=== PATIENT | female | born 1995 | race Caucasian/White ===

== ENCOUNTER 2017-09-15 12:41 | Emergency (ER) | payer OTHER ==
--- NOTE | 2017-09-15 13:54 | RAD REPORT ---
EXAM DESCRIPTION: RAD - Foot Left 3 View - 09/15/2017 1:40 pm CLINICAL HISTORY: Fall, foot pain COMPARISON: None. FINDINGS: Transverse fracture is present at the base of the fifth metatarsal. There is a small free fracture fragment present as well. Approximately 6 mm of distraction is seen between the main body of the metatarsal and the base fracture fragment. No other fracture changes are seen. No dislocation or periosteal reaction. No pathologic bone process. No air or foreign body in the soft tissues. IMPRESSION: Comminuted fracture of the base of the fifth metatarsal. Approximately 6 mm of distracti on is seen across the fracture plane.
--- NOTE | 2017-09-15 14:09 | EDPHYS ---
Physician Documentation [facility] Name: Aida Rodriguez Age: 22 yrs Sex: Female : 1995 Arrival Date: 09/15/2017 Time: 12:44 Bed 11 Private MD: Gray Martinez H ED Physician Maurice Schroeder HPI: 09/15 14:00 This 22 yrs old Female presents to ER via Ambulatory with complaints of Foot pm1 Injury. 14:00 The patient presents with pain, swelling. The complaints affect the lateral aspect of pm1 left foot. Context: The problem was sustained at home, resulted from a mis-step, on a curb, twisting of the extremity, the patient can partially bear weight, the patient is able to ambulate, Problem is a result from a previous injury: No. Onset: The symptoms/episode began/occurred 1 week(s) ago. Modifying factors: The symptoms are alleviated by nothing. the symptoms are aggravated by weight bearing. Associated signs and symptoms: Pertinent positives: swelling, Pertinent negatives numbness, tingling. Treatment prior to arrival includes: over the counter medications. Severity of symptoms: in the emergency department the symptoms have improved. The patient has not experienced similar symptoms in the past. 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 - Social history:: Smoking status: Patient uses tobacco products, denies chronic smoking, but will smoke occasionally. ROS: 14:00 Constitutional: Negative for fever, chills, and weight loss, Cardiovascular: Negative pm1 for chest pain, palpitations, and edema, Respiratory: Negative for shortness of breath, cough, wheezing, and pleuritic chest pain, Abdomen/GI: Negative for abdominal pain, nausea, vomiting, diarrhea, and constipation, Back: Negative for injury and pain. 14:00 Skin: Negative for injury, rash, and discoloration, Neuro: Negative for headache, weakness, numbness, tingling, and seizure. 14:00 MS/extremity: Positive for injury or acute deformity, pain, of the lateral aspect of left foot. Exam: 14:00 Constitutional: This is a well developed, well nourished patient who is awake, alert, pm1 and in no acute distress. Head/Face: Normocephalic, atraumatic. Neck: Trachea midline, no thyromegaly or masses palpated, and no cervical lymphadenopathy. Supple, full range of motion without nuchal rigidity, or vertebral point tenderness. No Meningismus. Chest/axilla: Normal chest wall appearance and motion. Nontender with no deformity. No lesions are appreciated. Cardiovascular: Regular rate and rhythm with a normal S1 and S2. No gallops, murmurs, or rubs. Normal PMI, no JVD. No pulse deficits. Respiratory: Lungs have equal breath sounds bilaterally, clear to auscultation and percussion. No rales, rhonchi or wheezes noted. No increased work of breathing, no retractions or nasal flaring. Back: No spinal tenderness. No costovertebral tenderness. Full range of motion. Skin: Warm, dry with normal turgor. Normal color with no rashes, no lesions, and no evidence of cellulitis. 14:00 Musculoskeletal/extremity: Extremities: grossly normal except: noted in the lateral aspect of left foot: swelling, tenderness. Vital Signs: 13:01 BP 118 / 71; Pulse 83; Resp 16; Temp 98.2; Pulse Ox 100% on R/A; Weight 70.31 kg; iw Height 5 ft. 4 in. (162.56 cm); Pain 10/10; 13:01 Body Mass Index 26.61 (70.31 kg, 162.56 cm) iw MDM: 13:06 Patient medically screened. pm1 14:02 Data reviewed: vital signs. Data interpreted: Pulse oximetry: on room air is 100 %. pm1 Interpretation: normal. Counseling: I had a detailed discussion with the patient and/or guardian regarding: the historical points, exam findings, and any diagnostic results supporting the discharge/admit diagnosis, radiology results, the need for outpatient follow up, to return to the emergency department if symptoms worsen or persist or if there are any questions or concerns that arise at home. 09/15 13:03 Order name: Foot Left 3 View XRAY; Complete Time: 13:57 iw 09/15 14:02 Order name: Post-op Orthopedic Shoe pm1 09/15 14:02 Order name: Carmelita pm1 Administered Medications: No medications were administered Disposition: 09/16 06:56 Co-signature as Attending Physician, Maurice Schroeder MD I agree with the assessment and [facility] plan of care. Disposition: 09/15/17 14:08 Discharged to Home. Impression: Displaced fracture of fifth metatarsal bone, left foot. - Condition is Stable. - Discharge Instructions: Avulsion Fracture of the Foot. - Prescriptions for Tylenol- Codeine #3 300-30 mg Oral Tablet - take 2 tablets by ORAL route every 6 hours As needed; 20 tablet. - Medication Reconciliation Form, Thank You Letter, Prescription Opioid Use form. - Follow up: Emergency Department; When: As needed; Reason: Worsening of condition. Follow up: Kevin Menchaca MD; When: 2 - 3 days; Reason: Recheck today's complaints, Continuance of care, Re-evaluation by your physician. - Problem is new. - Symptoms have improved. Signatures: Dispatcher [employer] Maurice Thakur MD MD cha Townsend, Paige, RN RN Nieves Griffin RN RN iw Marinas, Patrick, JUANJO EDUCATION INTERN pm1
--- NOTE | 2017-09-15 14:09 | ER ---
Nurse's Notes [facility] Name: Aida Rodriguez Age: 22 yrs Sex: Female : 1995 Arrival Date: 09/15/2017 Time: 12:44 Bed 11 Private MD: Gray Martinez H Diagnosis: Displaced fracture of fifth metatarsal bone, left foot Presentation: 09/15 12:58 Presenting complaint: Patient states: last Friday, injured left foot and has had pain iw since then, states she can see a bone sticking out, still has bruising. Transition of care: patient was not received from another setting of care. Onset of symptoms was September 05, 2017. Initial Sepsis Screen: Does the patient meet any 2 criteria? No. Patient's initial sepsis screen is negative. Does the patient have a suspected source of infection? No. Patient's initial sepsis screen is negative. Care prior to arrival: None. 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 - Social history:: Smoking status: Patient uses tobacco products, denies chronic smoking, but will smoke occasionally. Screenin:59 Abuse screen: Denies threats or abuse. Nutritional screening: No deficits noted. pt Tuberculosis screening: No symptoms or risk factors identified. Fall Risk Gait- Impaired (20 pts.). Assessment: 14:20 General: Appears in no apparent distress. Behavior is calm, cooperative. Pain: pt Complains of pain in left foot Pain currently is 5 out of 10 on a pain scale. Quality of pain is described as aching, Alleviated by rest. Neuro: No deficits noted. Cardiovascular: No deficits noted. Respiratory: No deficits noted. GI: No deficits noted. : No deficits noted. EENT: No deficits noted. Derm: Bruising that is dark purple. Musculoskeletal: Swelling present in left foot Reports pain in left foot. Vital Signs: 13:01 BP 118 / 71; Pulse 83; Resp 16; Temp 98.2; Pulse Ox 100% on R/A; Weight 70.31 kg; iw Height 5 ft. 4 in. (162.56 cm); Pain 10/10; 13:01 Body Mass Index 26.61 (70.31 kg, 162.56 cm) ED Course: 12:44 Patient arrived in ED. mr 12:44 Michelle CourtneyoDnaanDO reji is Private Physician. mr 13:00 Triage completed. iw 13:01 Arm band placed on. iw 13:05 Andres Andrea NP is PHCP. pm1 13:05 Maurice Schroeder MD is Attending Physician. pm1 13:35 Foot Left 3 View XRAY In Process Unspecified. EDMS 14:08 Kevin Menchaca MD is Referral Physician. pm1 15:00 Patient has correct armband on for positive identification. pt 15:00 No provider procedures requiring assistance completed. Patient did not have IV access pt during this emergency room visit. 15:00 Crutch training done. Ortho shoe applied to left foot. pt Administered Medications: No medications were administered Outcome: 14:08 Discharge ordered by . pm1 15:01 Discharged to home with crutches. pt 15:01 Condition: good 15:01 Discharge instructions given to patient, family, Instructed on discharge instructions, follow up and referral plans. no drinking with medication, medication usage, crutch walking, RICE Demonstrated understanding of instructions, follow-up care, medications, crutch walking, Prescriptions given X 15:03 Patient left the ED. pt Signatures: Dispatcher [employer] EDCA Aparna Hinkle RN RN pt Joie Suárez mr Nieves Banda RN RN Andres Andrea NP CLINICAL QUALITY MANAGER pm1
[2017-09-15 15:16] VITALS: BP 118/71; TEMP 98.2; O2SAT 100
== END 2017-09-15 15:03 | disposition home or self-care (01) ==
LOC: ER 12:41
DX: S92.352A Displaced fracture of fifth metatarsal bone, left foot, initial encounter for closed fracture (principal); W17.89XA Other fall from one level to another, initial encounter; Y93.9 Activity, unspecified; Y92.9 Unspecified place or not applicable
CPT/HCPCS: 99283

== ENCOUNTER 2018-07-19 16:22 | Emergency (ER) | payer OTHER ==
--- OUTSIDE RECORDS SUMMARY | 2018-07-19 16:23 | XMS REPORT ---
:1995 [facility] Address [address] [place] [address] Dr. Lees [address] [place] [id number] Care Team Providers Name Role Phone Unavailable Unavailable Unavailable Problems This patient has no known problems. Allergies, Adverse Reactions, Alerts This patient has no known allergies or adverse reactions. Medications This patient has no known medications.
[2018-07-19 18:14] LABS: Urine Bacteria 20-50 /HPF (<20); Urine RBC NONE SEEN /HPF (NONE SEEN)
[2018-07-19 18:15] LABS: Urine Culture Reflex Order REFLEXED
[2018-07-19 18:18] LABS: ALT/SGPT 22 U/L (12-78); AST/SGOT 21 U/L (15-37); Albumin 3.7 g/dL (3.4-5.0); Alkaline Phosphatase 73 U/L (45-117); BUN Blood Urea Nitrogen 12 mg/dL (7-18); Bicarbonate 28 mmol/L (21-32); Bilirubin Direct 0.2 mg/dL (0-0.2); Bilirubin Total 1.1 mg/dL (0.2-1.0); Glucose Level 99 mg/dL (74-106); Lipase 73 U/L (73-393); Potassium 3.6 mmol/L (3.5-5.1); Sodium Level 138 mmol/L (136-145)
[2018-07-19] MEDS ORDERED: PROMETHAZINE 25 MG/ML VIAL ONE (19:57)
[2018-07-19] MEDS ORDERED: NA CHLORIDE 0.9% 1,000 ML ONE (19:58)
[2018-07-19] MEDS ORDERED: CEFTRIAXONE/SWI 1gm 1 GM/10 ML SYR ONE (19:58)
[2018-07-19] MEDS ORDERED: ACYCLOVIR 400 MG TABLET ONE (19:58)
[2018-07-19 20:28] LABS: Absolute Lymphocytes (CBC) 1.2 K/uL (0.7-4.9); Absolute Monocytes 0.5 K/uL (0.1-1.3); Absolute Neutrophil 5.5 K/uL (1.8-8.0); Basophils % 0.4 % (0-1.3); Eosinophils % 0.5 % (0-4.4); Hematocrit 37.5 % (36.0-45.0); Lymphocytes % 16.2 % (15.3-44.8); MPV 8.7 fL (7.6-11.3); Monocytes % 6.4 % (3.3-12.3); RBC Red Blood Cell Count 4.07 M/uL (3.86-4.86)
[2018-07-19 20:39] LABS: Urine Blood NEGATIVE (NEG); Urine Glucose NEGATIVE (NEG); Urine Protein 2+ (NEG)
--- NOTE | 2018-07-19 20:40 | ER ---
Nurse's Notes [facility] Name: Aida Rodriguez Age: 23 yrs Sex: Female : 1995 Arrival Date: 07/19/2018 Time: 16:25 Bed 4 Private MD: Diagnosis: Zoster [herpes zoster];Urinary tract infection, site not specified;Vomiting;Diarrhea, unspecified Presentation: 07/19 16:28 Presenting complaint: Patient states: Ate undercooked chicken this morning, reports abd hb cramping, pain and vomiting today, denies Fever/Diarrhea at this time, reports rash to face starting today after vomiting. Transition of care: patient was not received from another setting of care. Onset of symptoms was July 19, 2018. Risk Assessment: Do you want to hurt yourself or someone else? Patient reports no desire to harm self or others. Initial Sepsis Screen: Does the patient meet any 2 criteria? No. Patient's initial sepsis screen is negative. Does the patient have a suspected source of infection? No. Patient's initial sepsis screen is negative. Care prior to arrival: None. 16:28 Method Of Arrival: Ambulatory hb 16:28 Acuity: REZA 3 hb Historical: - Allergies: 16:27 NKA; hb - Home Meds: 16:27 None [Active]; hb - PMHx: 16:27 None; hb - PSHx: 16:27 None; hb - Immunization history:: Adult Immunizations up to date. - Social history:: Smoking status: Patient uses tobacco products, denies chronic smoking, but will smoke occasionally. - Ebola Screening: : Patient negative for fever greater than or equal to 101.5 degrees Fahrenheit, and additional compatible Ebola Virus Disease symptoms Patient denies exposure to infectious person Patient denies travel to an Ebola-affected area in the 21 days before illness onset No symptoms or risks identified at this time. Screenin:02 Abuse screen: Denies threats or abuse. Denies injuries from another. Nutritional ch screening: No deficits noted. Tuberculosis screening: No symptoms or risk factors identified. Fall Risk None identified. Assessment: 17:02 General: Appears in no apparent distress. comfortable. Pain: Complains of pain in abdomen Pain currently is 7 out of 10 on a pain scale. Neuro: No deficits noted. Level of Consciousness is awake, alert, obeys commands, Oriented to person, place, time, situation. Respiratory: Airway is patent Respiratory effort is even, unlabored, Breath sounds are clear bilaterally. GI: Bowel sounds present X 4 quads. Abd is soft and non tender X 4 quads. Reports lower abdominal pain, bloating, gaseousness. Derm: Skin is pink, warm \T\ dry. 18:15 Reassessment: Patient appears in no apparent distress at this time. No changes from aj1 previously documented assessment. Patient and/or family updated on plan of care and expected duration. Pain level reassessed. Patient is alert, oriented x 3, equal unlabored respirations, skin warm/dry/pink. 19:00 Reassessment: Patient and/or family updated on plan of care and expected duration. Pain ea level reassessed. Patient is alert, oriented x 3, equal unlabored respirations, skin warm/dry/pink. Patient states feeling better. Patient states symptoms have improved. 20:15 Reassessment: Patient and/or family updated on plan of care and expected duration. Pain ea level reassessed. Patient is alert, oriented x 3, equal unlabored respirations, skin warm/dry/pink. 21:45 Reassessment: Patient and/or family updated on plan of care and expected duration. Pain ea level reassessed. Patient is alert, oriented x 3, equal unlabored respirations, skin warm/dry/pink. Discharge instructions given to patient, verbalized the understanding of instruction. Patient states feeling better. Patient states symptoms have improved. Vital Signs: 16:27 Weight 72.57 kg; Height 5 ft. 4 in. (162.56 cm); hb 16:27 BP 125 / 83; Pulse 103; Resp 17; Temp 97.2; Pulse Ox 100% ; Pain 6/10; hb 17:02 BP 116 / 76; Pulse 94; Resp 16; Temp 98.7; Pulse Ox 99% on R/A; Pain 7/10; ch 19:50 BP 114 / 77; Pulse 81; Resp 18; Pulse Ox 99% on R/A; ea 20:12 BP 113 / 76; Pulse 69; Resp 18; Pulse Ox 100% on R/A; ea 21:30 BP 117 / 74; Pulse 88; Resp 18; Temp 98.5(O); Pulse Ox 99% ; ea 16:27 Body Mass Index 27.46 (72.57 kg, 162.56 cm) hb ED Course: 16:25 Patient arrived in ED. sg 16:29 Triage completed. hb 16:29 Arm band placed on. hb 16:44 Consuelo Donovan, PAOLA is Primary Nurse. ch 16:54 Jo Ann Wright FNP-C is PHCP. snw 16:54 Maurice Schroeder MD is Attending Physician. snw 17:02 Patient has correct armband on for positive identification. Placed in gown. Bed in low ch position. Call light in reach. Side rails up X 1. Warm blanket given. 17:02 No provider procedures requiring assistance completed. ch 17:25 Initial lab(s) drawn, by me, sent to lab. Urine collected: clean catch specimen, dionte dh3 colored. Missed attempt(s): 22 gauge in right antecubital area. Bleeding controlled, band aid applied, catheter tip intact. 18:00 Missed attempt(s): 22 gauge in left antecubital area. Bleeding controlled, band aid aj1 applied, catheter tip intact. 18:05 Missed attempt(s): 22 gauge in left forearm. Bleeding controlled, band aid applied, aj1 catheter tip intact. 18:20 Inserted saline lock: 22 gauge in left forearm, using aseptic technique. rv 20:22 Cher Mayorga, PAOLA is Primary Nurse. ea 21:43 IV discontinued, intact, bleeding controlled, No redness/swelling at site. Pressure ea dressing applied. Administered Medications: 20:10 Drug: Phenergan 12.5 mg Route: IVP; Site: left forearm; ea 20:45 Follow up: Response: No adverse reaction; Marked relief of symptoms; Nausea is decreasedea 20:15 Drug: NS 0.9% 1000 ml Route: IV; Rate: 1 bolus; Site: left forearm; ea 21:38 Follow up: Response: No adverse reaction; IV Status: Completed infusion; IV Intake: ea 1000ml 20:15 Drug: Acyclovir 800 mg Route: PO; ea 21:10 Follow up: Response: No adverse reaction ea 20:30 Drug: Rocephin 1 grams Route: IV; Rate: calculated rate; Site: left forearm; ea 20:40 Follow up: Response: No adverse reaction; IV Status: Completed infusion; IV Intake: 10mlea 21:11 Drug: predniSONE 40 mg Route: PO; ea 21:35 Follow up: Response: No adverse reaction ea 21:11 Drug: Pepcid 20 mg Route: PO; ea 21:35 Follow up: Response: No adverse reaction ea Intake: 20:40 IV: 10ml; Total: 10ml. ea 21:38 IV: 1000ml; Total: 1010ml. ea Outcome: 20:40 Discharge ordered by . snw 21:43 Condition: improved ea 21:43 Discharge instructions given to patient, Instructed on discharge instructions, follow up and referral plans. medication usage, Demonstrated understanding of instructions, follow-up care, medications, Prescriptions given X 5 21:48 Discharged to home ambulatory, with family. ea 21:49 Patient left the ED. ea Signatures: Consuelo Donovan, RN RN Denisa Mcelroy RN RN ajJaime Guzman RN RN sg Jo Ann Wright, DEPUTY GRAND JURY-C DEPUTY GRAND JURY-Csnw Shelley Bolanos, RN RN Regina Redmond [facility] Cher Mayorga RN Leif Aronld ea RN RN rv
--- NOTE | 2018-07-19 20:40 | EDPHYS ---
Physician Documentation [facility] Name: Aida Rodriguez Age: 23 yrs Sex: Female : 1995 Arrival Date: 07/19/2018 Time: 16:25 Bed 4 Private MD: ED Physician Maurice Schroeder HPI: 07/19 17:34 This 23 yrs old Female presents to ER via Ambulatory with complaints of snw Abdominal Pain. 17:34 The patient presents with abdominal pain that is diffuse. Onset: The symptoms/episode snw began/occurred suddenly. The symptoms do not radiate. Associated signs and symptoms: Pertinent positives: nausea, vomiting, and diarrhea. The symptoms are described as crampy. Severity of pain: At its worst the pain was moderate. The patient has not experienced similar symptoms in the past. The patient has not recently seen a physician. pt attributes s/s to consumption of undercooked chicken. Historical: - Allergies: 16:27 NKA; hb - Home Meds: 16:27 None [Active]; hb - PMHx: 16:27 None; hb - PSHx: 16:27 None; hb - Immunization history:: Adult Immunizations up to date. - Social history:: Smoking status: Patient uses tobacco products, denies chronic smoking, but will smoke occasionally. - Ebola Screening: : Patient negative for fever greater than or equal to 101.5 degrees Fahrenheit, and additional compatible Ebola Virus Disease symptoms Patient denies exposure to infectious person Patient denies travel to an Ebola-affected area in the 21 days before illness onset No symptoms or risks identified at this time. ROS: 17:33 Eyes: Negative for injury, pain, redness, and discharge, ENT: Negative for injury, snw pain, and discharge, Neck: Negative for injury, pain, and swelling, Cardiovascular: Negative for chest pain, palpitations, and edema, Respiratory: Negative for shortness of breath, cough, wheezing, and pleuritic chest pain. 17:33 Back: Negative for injury and pain, : Negative for injury, bleeding, discharge, and swelling, MS/Extremity: Negative for injury and deformity, Neuro: Negative for headache, weakness, numbness, tingling, and seizure. 17:33 Constitutional: Positive for body aches, malaise. 17:33 Abdomen/GI: Positive for abdominal pain, nausea, vomiting, and diarrhea. 17:33 Skin: Positive for rash, to right face since this am. Exam: 17:28 Eyes: Pupils equal round and reactive to light, extra-ocular motions intact. Lids and snw lashes normal. Conjunctiva and sclera are non-icteric and not injected. Cornea within normal limits. Periorbital areas with no swelling, redness, or edema. ENT: Nares patent. No nasal discharge, no septal abnormalities noted. Tympanic membranes are normal and external auditory canals are clear. Oropharynx with no redness, swelling, or masses, exudates, or evidence of obstruction, uvula midline. Mucous membranes moist. Neck: Trachea midline, no thyromegaly or masses palpated, and no cervical lymphadenopathy. Supple, full range of motion without nuchal rigidity, or vertebral point tenderness. No Meningismus. Chest/axilla: Normal chest wall appearance and motion. Nontender with no deformity. No lesions are appreciated. 17:28 Respiratory: Lungs have equal breath sounds bilaterally, clear to auscultation and percussion. No rales, rhonchi or wheezes noted. No increased work of breathing, no retractions or nasal flaring. Back: No spinal tenderness. No costovertebral tenderness. Full range of motion. 17:28 MS/ Extremity: Pulses equal, no cyanosis. Neurovascular intact. Full, normal range of motion. Neuro: Awake and alert, GCS 15, oriented to person, place, time, and situation. Cranial nerves II-XII grossly intact. Motor strength 5/5 in all extremities. Sensory grossly intact. Cerebellar exam normal. Normal gait. 17:28 Constitutional: The patient appears alert, awake, uncomfortable. 17:28 Head/face: Noted is rash, of the right cheek and right side of the nose. 17:28 Cardiovascular: Rate: tachycardic, Rhythm: regular, Heart sounds: normal. 17:28 Abdomen/GI: Inspection: abdomen appears normal, Bowel sounds: diminished, Palpation: abdomen is soft and non-tender. 17:28 Skin: Appearance: normal except for affected area, right facial rash suspicious for shingles except that it is also also to a much lesser degree on the left cheek. Vital Signs: 16:27 Weight 72.57 kg; Height 5 ft. 4 in. (162.56 cm); hb 16:27 BP 125 / 83; Pulse 103; Resp 17; Temp 97.2; Pulse Ox 100% ; Pain 6/10; hb 17:02 BP 116 / 76; Pulse 94; Resp 16; Temp 98.7; Pulse Ox 99% on R/A; Pain 7/10; ch 19:50 BP 114 / 77; Pulse 81; Resp 18; Pulse Ox 99% on R/A; ea 20:12 BP 113 / 76; Pulse 69; Resp 18; Pulse Ox 100% on R/A; ea 21:30 BP 117 / 74; Pulse 88; Resp 18; Temp 98.5(O); Pulse Ox 99% ; ea 16:27 Body Mass Index 27.46 (72.57 kg, 162.56 cm) hb MDM: 16:55 Patient medically screened. snw 20:27 Data reviewed: vital signs, nurses notes. Data interpreted: Pulse oximetry: on room air snw is 99 %. Interpretation: normal. Counseling: I had a detailed discussion with the patient and/or guardian regarding: the historical points, exam findings, and any diagnostic results supporting the discharge/admit diagnosis, lab results, the need for outpatient follow up, to return to the emergency department if symptoms worsen or persist or if there are any questions or concerns that arise at home. Response to treatment: the patient's symptoms have markedly improved after treatment, patient is well hydrated. Special discussion: Based on the history and exam findings, there is no indication for further emergent testing or inpatient evaluation. I discussed with the patient/guardian the need to see the opthamologist for further evaluation of the symptoms, I discussed with the patient/guardian the need to see the primary care provider for further evaluation of the symptoms. 07/19 16:55 Order name: Basic Metabolic Panel; Complete Time: 18:26 snw 07/19 16:55 Order name: CBC with Diff; Complete Time: 20:39 snw 07/19 16:55 Order name: Hepatic Function; Complete Time: 18:26 snw 07/19 16:55 Order name: Lipase; Complete Time: 18:26 snw 07/19 16:55 Order name: Urine Microscopic Only; Complete Time: 18:26 snw 07/19 17:42 Order name: Urine Dipstick--Ancillary (enter results); Complete Time: 20:40 ms 07/19 17:42 Order name: Urine --Ancillary (enter results); Complete Time: 20:40 ms 07/19 18:17 Order name: Urine Culture EDMS 07/19 16:55 Order name: IV Saline Lock; Complete Time: 20:47 snw 07/19 16:55 Order name: Labs collected and sent; Complete Time: 17:34 snw 07/19 16:55 Order name: Urine Test (obtain specimen); Complete Time: 17:34 snw 07/19 16:55 Order name: Urine Dipstick-Ancillary (obtain specimen); Complete Time: 17:34 snw 07/19 18:02 Order name: Labs collected and sent; Complete Time: 20:47 ms Administered Medications: 20:10 Drug: Phenergan 12.5 mg Route: IVP; Site: left forearm; ea 20:45 Follow up: Response: No adverse reaction; Marked relief of symptoms; Nausea is decreasedea 20:15 Drug: NS 0.9% 1000 ml Route: IV; Rate: 1 bolus; Site: left forearm; ea 21:38 Follow up: Response: No adverse reaction; IV Status: Completed infusion; IV Intake: ea 1000ml 20:15 Drug: Acyclovir 800 mg Route: PO; ea 21:10 Follow up: Response: No adverse reaction ea 20:30 Drug: Rocephin 1 grams Route: IV; Rate: calculated rate; Site: left forearm; ea 20:40 Follow up: Response: No adverse reaction; IV Status: Completed infusion; IV Intake: 10mlea 21:11 Drug: predniSONE 40 mg Route: PO; ea 21:35 Follow up: Response: No adverse reaction ea 21:11 Drug: Pepcid 20 mg Route: PO; ea 21:35 Follow up: Response: No adverse reaction ea Disposition: 07/20 08:00 Co-signature as Attending Physician, Maurice Schroeder MD I agree with the assessment and cordell plan of care. Disposition: 07/19/18 20:40 Discharged to Home. Impression: Zoster [herpes zoster], Urinary tract infection, site not specified, Vomiting, Diarrhea, unspecified. - Condition is Stable. - Discharge Instructions: Food Choices to Help Relieve Diarrhea, Adult, Diarrhea, Adult, Nausea and Vomiting, Adult, Urinary Tract Infection, Adult, Rehydration, Adult. - Prescriptions for Augmentin 875- 125 mg Oral Tablet - take 1 tablet by ORAL route every 12 hours for 10 days; 20 tablet. Bentyl 20 mg Oral Tablet - take 1 tablet by ORAL route every 6 hours As needed; 20 tablet. Valtrex 1 g Oral Tablet - take 1 tablet by ORAL route every 8 hours for 7 days; 21 tablet. Prednisone 20 mg Oral Tablet - take 2 tablet by ORAL route once daily for 5 days; 10 tablet. promethazine 25 mg Oral Tablet - take 1 tablet by ORAL route every 6 hours As needed; 20 tablet. - Work release form, Medication Reconciliation Form, Thank You Letter, Antibiotic Education, Prescription Opioid Use form. - Follow up: Private Physician; When: 2 - 3 days; Reason: Recheck today's complaints, Continuance of care, Re-evaluation by your physician. Follow up: Emergency Department; When: As needed; Reason: Worsening of condition. Signatures: Dispatcher [employer] EDMaurice Fernando MD MD cha Therrien, Shelly, TRAVIS-C MIXER ATTENDANT-Csnw Joie Carvalho ms, Heather, RN RN hb Antunez, Elena, RN RN ea Corrections: (The following items were deleted from the chart) 07/19 21:49 20:40 07/19/2018 20:40 Discharged to Home. Impression: Zoster [herpes zoster]; Urinary ea tract infection, site not specified; Vomiting; Diarrhea, unspecified. Condition is Stable. Discharge Instructions: Food Choices to Help Relieve Diarrhea, Adult, Diarrhea, Adult, Nausea and Vomiting, Adult, Urinary Tract Infection, Adult, Rehydration, Adult. Prescriptions for Augmentin 875-125 mg Oral Tablet - take 1 tablet by ORAL route every 12 hours for 10 days; 20 tablet, Bentyl 20 mg Oral Tablet - take 1 tablet by ORAL route every 6 hours As needed; 20 tablet, Valtrex 1 g Oral Tablet - take 1 tablet by ORAL route every 8 hours for 7 days; 21 tablet, Prednisone 20 mg Oral Tablet - take 2 tablet by ORAL route once daily for 5 days; 10 tablet, promethazine 25 mg Oral Tablet - take 1 tablet by ORAL route every 6 hours As needed; 20 tablet. and Forms are Work release form, Medication Reconciliation Form, Thank You Letter, Antibiotic Education, Prescription Opioid Use. Follow up: Private Physician; When: 2 - 3 days; Reason: Recheck today's complaints, Continuance of care, Re-evaluation by your physician. Follow up: Emergency Department; When: As needed; Reason: Worsening of condition. snw
[2018-07-19] MEDS ORDERED: FAMOTIDINE 20 MG TAB ONE (21:05)
[2018-07-19] MEDS ORDERED: predniSONE 20 MG TAB ONE (21:05)
[2018-07-19 22:35] VITALS: O2SAT 99
[2018-07-19 22:37] VITALS: BP 117/74; TEMP 98.5
== END 2018-07-19 21:49 | disposition home or self-care (01) ==
LOC: ER 16:22
DX: B02.9 Zoster without complications (principal); N39.0 Urinary tract infection, site not specified; R11.2 Nausea with vomiting, unspecified; R19.7 Diarrhea, unspecified; Z72.0 Tobacco use
CPT/HCPCS: 36415; 80048; 80076; 81003; 81015; 81025; 83690; 85025; 87086; 87088; 96361; 96374; 96375; 99284; J0696; J2550; J7030; J7512

== ENCOUNTER 2019-07-22 14:06 | Emergency (ER) | payer OTHER ==
--- OUTSIDE RECORDS SUMMARY | 2019-07-22 14:10 | XMS REPORT ---
:1995 [facility] Address [address] [place] [address] Dr. Lees [address] [place] [id number] Care Team Providers Name Role Phone Unavailable Unavailable Unavailable Problems This patient has no known problems. Allergies, Adverse Reactions, Alerts This patient has no known allergies or adverse reactions. Medications This patient has no known medications.
--- OUTSIDE RECORDS SUMMARY | 2019-07-22 14:10 | XMS REPORT | Summary of Care ---
:1995 Author Organization [facility] Address [address] [place] [address] Care Team Providers Name Role Phone Carrie Zaldivar MD Unavailable Unavailable Evelyn Fong Primary Care Provider Reason for Visit Reason Comments Initial Visit Encounter Details Date Type Department Care Team Description 06/08/2019 Initial [facility]- Evelyn Fong Supervision of high risk in first trimester (Primary Dx); Visit TRAVIS Tillman Multiparity; [address] [place] [address] Cramping affecting , antepartum; [place], [place] Nausea and vomiting during prior to 22 weeks gestation; [id number] [place], [place] Obesity in ; [phone] Need for prophylactic vaccination and inoculation against influenza [phone] Allergies No Known Allergiesdocumented as of this encounter (statuses as of 06/08/2019) Medications Medication Sig Dispensed Refills Start Date End Date Status famotidine 40 mg Take 1 tablet 30 tablet 0 08/28/2018 06/08/2019 Discontinued tabletIndications: by mouth Abdominal pain, daily. unspecified abdominal location proMETHazine 25 mg Take 1 tablet 20 tablet 0 08/28/2018 06/08/2019 Discontinued tabletIndications: by mouth every Nausea 6 (six) hours as needed for Nausea and Vomiting (N/V). traMADOL 50 mg Take 1 tablet 20 tablet 0 08/28/2018 06/08/2019 Discontinued tabletIndications: by mouth every Abdominal pain, 6 (six) hours unspecified as needed abdominal location (pain). documented as of this encounter (statuses as of 06/08/2019) Active Problems Problem Noted Date Multiparity 06/08/2019 Obesity in 06/08/2019 Cramping affecting , antepartum 06/08/2019 Nausea and vomiting during prior to 22 weeks gestation 06/08/2019 Closed displaced fracture of fifth metatarsal bone 09/17/2017 Obesity (BMI 30-39.9) 10/12/2016 Supervision of high risk in first trimester 09/05/2016 BV (bacterial vaginosis) 05/12/2016 Family history of breast cancer in mother 05/09/2016 False positive serological test for hepatitis C 04/05/2016 HCV antibody positive 04/05/2016 Estimated Date of Delivery Comments Yes 01/18/2020 Based on last menstrual period of 04/13/2019 (Exact Date) documented as of this encounter (statuses as of 06/08/2019) Resolved Problems Problem Noted Date Resolved Date High-risk , second trimester 05/09/2016 09/05/2016 Unsure of last menstrual period as reason for ultrasound 04/30/20162016 scan High-risk supervision, first trimester 04/05/2016 07/05/2016 Chlamydia infection complicating , first trimester 04/05/20162016 Encounter for supervision of other normal , first 03/28/20162015 trimester documented as of this encounter (statuses as of 06/08/2019) Immunizations Name Administration Dates Next Due Influenza Virus Vaccine Quad .5 mL IM 6+ MO 06/08/2019 Tdap 09/05/2016 documented as of this encounter Social History Tobacco Use Types Packs/Day Years Used Date Former Smoker Cigarettes Quit: 09/26/2015 Smokeless Tobacco: Never Used Alcohol Use Drinks/Week oz/Week Comments Not Currently 0 Standard drinks or equivalent 0.0 Estimated Date of Delivery Comments Yes 01/18/2020 Based on last menstrual period of 04/13/2019 (Exact Date) Sex Assigned at Date Recorded Not on file Job Start Date Occupation Industry Not on file Not on file Not on file Travel History Travel Start Travel End No recent travel history available. documented as of this encounter Last Filed Vital Signs Vital Sign Reading Time Taken Comments Blood Pressure 119/78 06/08/2019 1:59 PM [employer] Pulse 91 06/08/2019 1:59 PM [employer] Temperature 36.9 C (98.5 F) 06/08/2019 1:59 PM [employer] Respiratory Rate 16 06/08/2019 1:59 PM [employer] Oxygen Saturation - - Inhaled Oxygen Concentration - - Weight 84.1 kg (185 lb 8 oz) 06/08/2019 1:59 PM [employer] Height 162.6 cm (5' 4") 06/08/2019 1:59 PM [employer] Body Mass Index 31.84 06/08/2019 1:59 PM [employer] documented in this encounter Progress Notes Evelyn Fong, MUSIC THER[employer] - 06/08/2019 10:45 AM CST Chief complaint: Chief Complaint Patient presents with Initial Visit HPI CC: Follow Up Visit Aida Rodriguez is a 24 year old, , /White female. Patient's last menstrual period was04/13/2019 (exact date). She is 8w0d with an intrauterine . Her estimated date of delivery is 01/18/2020, by Last Menstrual Period. She has no complaints today. She reports +FM and denies contractions, LOF and bleeding today. Patient denies current or past physical, sexual or emotional abuse. Histories OB History Para Term AB Living 3 2 1 1 0 2 SAB TAB Ectopic Multiple Live Births 0 0 0 0 2 # Outcome Date GA Lbr Heri/2nd Weight Sex Delivery Anes PTL Lv 3 Current 2 10/12/16 36w3d 5 lb 6 oz (2.438 kg) M Vag-Spont Y EMILEE 1 Term 08/20/13 40w4d 8 lb 10 oz (3.912 kg) M VAGINAL IV narcotic N EMILEE Past Medical History: Diagnosis Date Anemia with first , resolved Anxiety ongoing, not on medication. Chlamydia Chlamydia infection complicating , first trimester 04/05/2016 False positive serological test for hepatitis C 04/05/2016 STD (sexually transmitted disease) Family History Problem Relation Age of Onset Neurological Mother Seizures Diabetes Father Cancer Paternal Grandmother Liver CA Arthritis NoFHx Asthma NoFHx defects NoFHx Genetic NoFHx Colon Cancer NoFHx Ovarian Cancer NoFHx Uterine Cancer NoFHx Depression NoFHx Psychiatry NoFHx Heart NoFHx High cholesterol NoFHx Hypertension NoFHx Mental retardation NoFHx Osteoporosis NoFHx Breast Cancer NoFHx Family Status Relation Name Status Mo Alive Fa Alive MGMo PGMo (Not Specified) Sis Alive uknown history Bro Alive unknown history NoFHx (Not Specified) Past Surgical History: Procedure Laterality Date FOOT/TOES SURGERY PROC UNLISTED 11/06/2017 Social History Socioeconomic History Marital status: Single Spouse name: Not on file Number of children: 1 Years of education: 12+ Highest education level: Not on file Occupational History 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 Social Needs Financial resource strain: Not on file Food insecurity: Worry: Not on file Inability: Not on file Transportation needs: Medical: Not on file Non-medical: Not on file Tobacco Use Smoking status: Former Smoker Types: Cigarettes Last attempt to quit: 09/26/2015 Years since quittin.7 Smokeless tobacco: Never Used Substance and Sexual Activity Alcohol use: Not Currently Alcohol/week: 0.0 standard drinks Drug use: No Sexual activity: Yes Partners: Male control/protection: None Comment: Last coitus 06/04/2019 Lifestyle Physical activity: Days per week: Not on file Minutes per session: Not on file Stress: Not on file Relationships Social connections: Talks on phone: Not on file Gets together: Not on file Attends orthodoxy service: Not on file Active member of club or organization: Not on file Attends meetings of clubs or organizations: Not on file Relationship status: Not on file Intimate partner violence: Fear of current or ex partner: Not on file Emotionally abused: Not on file Physically abused: Not on file Forced sexual activity: Not on file Other Topics Concern Not on file Social History Narrative No exposure to cats No orthodoxy preference Denies domestic violence or abuse Patient lives with parents. Social History Substance and Sexual Activity Sexual Activity Yes Partners: Male control/protection: None Comment: Last coitus 06/04/2019 Genetic Screen Autism / Mental Retardation: No Brian Disease: No Congenital Heart Defect: No Cystic Fibrosis: No Down Syndrome: No Familial Dysautonomia: No Hemophilia or other Blood Disorders: No Marshall Chorea: No Maternal Metabolic Disorder--specify (eg. Type 1 Diabetes, PKU): No Muscular Dystrophy: No Neural Tube Defect: No Recurrent Loss or a Stillbirth: No Sickle Cell Disease or Trait: No David Sachs: No Teratological Substances (specify type & strength/dose) since LMP: No Thalassemia: No Other Inherited Genetic or Chromosomal Disorder (specify): No No Significant History of Genetic Disorders: No Significant History of Genetic Disorders Labs Labs are pending. Radiology No new radiology. Allergies Aida has No Known Allergies. Medications Aida currently has no medications in their medication list. Review of Systems Constitutional: Negative for activity change, appetite change, fatigue, unexpected weight change, weight gain and weight loss. HENT: Negative for sore throat. Eyes: Negative for visual disturbance. Respiratory: Negative for cough and shortness of breath. Breasts: Negative for discharge, mass, pain and unequal size. Cardiovascular: Negative for chest pain, palpitations and leg swelling. Gastrointestinal: Negative. Negative for abdominal pain, anal bleeding, blood in stool, constipation, diarrhea, nausea, rectal pain and vomiting. Genitourinary: Negative for bladder incontinence, dysuria, urgency, flank pain, vaginal bleeding, vaginal discharge, genital sores, vaginal pain and pelvic pain. Skin: Negative for color change and rash. Neurological: Negative. Negative for dizziness, syncope and headaches. Psychiatric/Behavioral: Negative for confusion, self-injury and sleep disturbance. The patient is not nervous/anxious. Hematological: Negative for cold intolerance and heat intolerance. Endocrine: Negative for hair loss, cold intolerance, heat intolerance, weight gain and weight loss. BP 119/78 | Pulse 91 | Temp 36.9 C (98.5 F) (Oral) | Resp 16 | Ht 5' 4" (1.626 m) | Wt 185 lb 8 oz (84.1 kg) | LMP 04/13/2019 (Exact Date) | BMI 31.84 kg/m Pregravid BMI: Could not be calculated Physical Exam Vitals reviewed. Constitutional: She is oriented to person, place, and time. She appears well- developed, well-nourished and well-groomed. She has no deformities. Neck: No tenderness and no mass. No thyroid nodules and no thyromegaly palpated. Cardiovascular: Regular rate and rhythm. No murmur auscultated. Pulmonary/Chest: Breath sounds clear to auscultation. Normal inspiratory effort. Abdominal: Abdomen is soft. No mass palpated. No tenderness present. There is no guarding. Neuro/Psychiatric: She has a normal mood and affect. She is oriented to person, place, and time. Skin: Skin normal. No lesion and no rash present. Breast: Right breast exhibits no mass, no nipple discharge and no tenderness. Left breast exhibits no mass, no nipple discharge and no tenderness. Normal left breast and normal right breast Rectal: normal rectum External genitalia: Normal external genitalia appropriate for age. Normal hair distribution. No labial lesion. Regional Facilities Manager present for the exam: Juan Carlos Gomez, medical student present Vagina:Normal vagina. No lesion inspected. No abnormal vaginal discharge found. Cervix: Normal cervix. No lesion. No tenderness and no discharge present. Uterus: Uterus is normal size and non-tender. 6cmNormal uterus Adnexa: Right adnexa without tenderness or mass. Left adnexa without tenderness or mass. Normal leftadnexa and normal right adnexa Anus/perineum: Normal perineum. PHYSICAL: General Exam: HEENT: Normal Thyroid: Normal Lymph Node: Normal Neurological: Normal Abdomen: Normal Skin: Normal Extremities: Normal Pelvic Exam: Vulva: Normal Vagina: Normal Cervix: Normal Closed/50/-3 Membrane status: Intact Uterus: 6cm Weeks Adnexa: Normal Spines: Average Sacrum: Concave Subpubic Arch: Normal Assessment/Plan Supervision of high risk in first trimester (primary encounter diagnosis) Multiparity Comment: Routine NOB Plan: POCT TEST, Glucose 1 Hour Post Prandial, CBC WITH DIFF, GC & CHLAMYDIA AMPLIFIED ASSAY, HEPATITIS B SURFACE ANTIGEN, HIV 1/2 AG-AB WITH REFLEX, POCT URINALYSIS W SPECIFIC GRAVITY, WORKUP, BLOOD BANK, RUBELLA SCREEN (LOGAN) IGG, GALV ONLY - SYPHILIS IGG/IGM, URINE CULTURE, VZV ANTIBODY SCREEN, WORKUP, BLOOD BANK, Glucose 1 Hour Post Prandial, CBC WITH DIFF, GC & CHLAMYDIA AMPLIFIED ASSAY, HEPATITIS B SURFACE ANTIGEN, RUBELLA SCREEN (LOGAN) IGG, GALV ONLY - SYPHILIS IGG/IGM, URINE CULTURE, VZV ANTIBODY SCREEN, CBC WITH DIFFERENTIAL Denies zika virus risk, signs and symptoms such as fever,rash,joint pain, conjunctivitis (red eyes), muscle pain, headaches; outside [place] travel to areas affected by zika, and FOB exposure to zika. Educated on use of mosquito repellent. Cramping affecting , antepartum Comment: denies bleeding Plan: Tylenol encoraged Nausea and vomiting during prior to 22 weeks gestation Comment: patient complains of symptoms Plan: medication list given Obesity in Comment: BMI: 31.84 Plan:Patient encouraged to limit weight gain and sensible diet. Return to clinic in 2 weeks. Discussed treatment options. Medications as ordered. Reviewed patient instructions and provided printed copy. This visit did not involve counseling and coordination that comprised more than 50% of the visit time. TRAVIS Myers 06/08/2019 2:40 PM Barbara Ocasio RN - 06/08/2019 10:45 AM CSTPatient is 24 year old female here for current . Patient is . 1) Previous delivery methods vaginal 2) Patient is experiencing cramping 3) Patient is notexperiencing bleeding. 4) LMP 04/13/2019 5) Last Pap was: 04/24/2018 Results: neg 6) Have you had a flu vaccine this season? No, desires vaccine today 7) PPD candidate? no 8) Patient complains of 5/10 cramping 9) Patient denies history of physical, emotional, or sexual abuse. Patient states she currently feels safe at home. NOB packet given and reviewed with patient. documented in this encounter Plan of Treatment Date Type Specialty Care Team Description 07/06/2019 Routine Visit OB Satellites Evelyn Fong FNP [address] [place] [address] [phone] Name Type Priority Associated Diagnoses Date/Time Glucose 1 Hour Post LAB Routine Supervision of high risk 06/08/2019 3:03 PM Prandial in first [employer] trimester CBC WITH DIFF LAB Routine Supervision of high risk 06/08/2019 3:03 PM in first [employer] trimester GC & CHLAMYDIA AMPLIFIED LAB Routine Supervision of high risk 06/08/2019 3 :03 PM ASSAY in first [employer] trimester HEPATITIS B SURFACE LAB Routine Supervision of high risk 06/08/2019 3:03 PM ANTIGEN in first [employer] trimester HIV 1/2 AG-AB WITH REFLEX LAB Routine Supervision of high risk 06/08/2019 3:03 PM in first [employer] trimester RUBELLA SCREEN (LOGAN) LAB Routine Supervision of high risk 06/08/2019 3: 03 PM IGG in first [employer] trimester GALV ONLY - SYPHILIS LAB Routine Supervision of high risk 06/08/2019 3:03 PM IGG/IGM in first [employer] trimester URINE CULTURE LAB Routine Supervision of high risk 06/08/2019 3:03 PM in first [employer] trimester VZV ANTIBODY SCREEN LAB Routine Supervision of high risk 06/08/2019 3:03 PM in first [employer] trimester CBC WITH DIFFERENTIAL LAB Routine Supervision of high risk 06/08/2019 3: 03 PM in first [employer] trimester Name Type Priority Associated Diagnoses Order Schedule Glucose 1 Hour Post LAB Routine Supervision of high risk Expected: 2019, Prandial in first Expires: 06/08/2020 trimester CBC WITH DIFF LAB Routine Supervision of high risk Expected: 06/08/2019, in first Expires: 06/08/2020 trimester GC & CHLAMYDIA LAB Routine Supervision of high risk Expected: 06/08/2019, AMPLIFIED ASSAY in first Expires: 06/08/2020 trimester HEPATITIS B SURFACE LAB Routine Supervision of high risk Expected: 2019, ANTIGEN in first Expires: 06/08/2020 trimester POCT URINALYSIS W LAB Routine Supervision of high risk 20 Occurrences starting SPECIFIC GRAVITY in first 06/08/2019 until trimester 04/03/2020 WORKUP, BLOOD LAB Routine Supervision of high risk Expected: 06/08, BANK in first Expires: 06/08/2020 trimester RUBELLA SCREEN (LOGAN) LAB Routine Supervision of high risk Expected: 06/08, IGG in first Expires: 06/08/2020 trimester GALV ONLY - SYPHILIS LAB Routine Supervision of high risk Expected: 2019, IGG/IGM in first Expires: 06/08/2020 trimester URINE CULTURE LAB Routine Supervision of high risk Expected: 06/08/2019, in first Expires: 06/08/2020 trimester VZV ANTIBODY SCREEN LAB Routine Supervision of high risk Expected: 2019, in first Expires: 06/08/2020 trimester Health Maintenance Due Date Last Done Comments INFLUENZA VACCINE (#1) 2019 CHLAMYDIA SCREENING 04/24/2019 04/24/2018, 11/19/2016, 10/08/2016, Additional history exists HPV VACCINES (1 - Female 05/29/2020 Postponed from 2-dose series) 2007 ( or ) MENINGOCOCCAL B VACCINES (1 06/07/2020 Postponed from of 2 - Risk Bexsero 2-dose 2006 ( or series) ) VARICELLA VACCINES (1 of 2 06/08/2020 Postponed from - 2-dose childhood series) 1997 ( or ) PAP SMEAR 04/24/2021 04/24/2018 DTaP,Tdap,and Td Vaccines 09/05/2026 09/05/2016 (2 - Td) PNEUMOCOCCAL 0-64 YEARS Aged Out No longer eligible COMBINED SERIES based on patient's age to complete this topic documented as of this encounter Procedures Procedure Name Priority Date/Time Associated Diagnosis Comments FLU VACC Routine 06/08/2019 2:40 Need for prophylactic ([id number]), 6+ PM [employer] vaccination and MONTHS, IM, QUAD inoculation against influenza POCT TEST Routine 06/08/2019 1:58 Supervision of high Results for this PM [employer] risk in procedure are in first trimester the results section. documented in this encounter Results POCT TEST (06/08/2019 1:58 PM LEAD [employer]MAN) POCT PREG Positive On board controls acceptable Yes with C Line POCT PREG LOT # POCT PREG TEST DATE Specimen Urine - URINE, CLEAN CATCH documented in this encounter Visit Diagnoses Diagnosis Supervision of high risk in first trimester - Primary Unspecified high-risk Multiparity Cramping affecting , antepartum Nausea and vomiting during prior to 22 weeks gestation Obesity in Obesity complicating , childbirth, or the puerperium, unspecified as to episode of care or not applicable Need for prophylactic vaccination and inoculation against influenza documented in this encounter Insurance Payer Benefit Plan / Subscriber ID Effective Phone Address Type Group Dates MEDICAID MEDICAID PENDING 2019-[address] [place] [address] documented as of this encounter
--- OUTSIDE RECORDS SUMMARY | 2019-07-22 14:10 | XMS REPORT | Summary of Care ---
:1995 Author Organization [facility] Address [address] [place] [address] Care Team Providers Name Role Phone Carrie Zalidvar MD Unavailable Unavailable Pcp, Patient Does Not Have A Primary Care Provider Encounter Details Date Type Department Care Team Description 06/08/2019 Orders Only [facility] Doctor Unassigned, No [address] [facility] Name [place] [id number] [address] [place] [phone] Allergies No Known Allergiesdocumented as of this encounter (statuses as of 06/08/2019) Medications Medication Sig Dispensed Refills Start Date End Date Status famotidine 40 mg Take 1 tablet by 30 tablet 0 08/28/2018 Active tabletIndications: mouth daily. Abdominal pain, unspecified abdominal location proMETHazine 25 mg Take 1 tablet by 20 tablet 0 08/28/2018 Active tabletIndications: mouth every 6 Nausea (six) hours as needed for Nausea and Vomiting (N/V). traMADOL 50 mg Take 1 tablet by 20 tablet 0 08/28/2018 Active tabletIndications: mouth every 6 Abdominal pain, (six) hours as unspecified abdominal needed (pain). location documented as of this encounter (statuses as of 06/08/2019) Active Problems Problem Noted Date Closed displaced fracture of fifth metatarsal bone 09/17/2017 Obesity (BMI 30-39.9) 10/12/2016 High-risk , third trimester 09/05/2016 BV (bacterial vaginosis) 05/12/2016 Family history of breast cancer in mother 05/09/2016 False positive serological test for hepatitis C 04/05/2016 HCV antibody positive 04/05/2016 documented as of this encounter (statuses as [...] 06/08/2019) Immunizations Name Administration Dates Next Due Tdap 09/05/2016 documented as of this encounter Social History Tobacco Use Types Packs/Day Years Used Date Current Some Day Smoker Cigarettes Quit: 09/26/2015 Smokeless Tobacco: Never Used Alcohol Use Drinks/Week oz/Week Comments Yes 0 Standard drinks or equivalent 0.0 Sex Assigned at Date Recorded Not on file Job Start Date Occupation Industry Not on file Not on file Not on file Travel History Travel Start Travel End No recent travel history available. documented as of this encounter Last Filed Vital Signs Not on filedocumented in this encounter Plan of Treatment Health Maintenance Due Date Last Done Comments VARICELLA VACCINES (1 of 2 - 1997 2-dose childhood series) PNEUMOCOCCAL 0-64 YEARS COMBINED 2002 SERIES (1 of 1 - PPSV23) MENINGOCOCCAL B VACCINES (1 of 2 - 2006 Risk Bexsero 2-dose series) HPV VACCINES (1 - Female 2-dose 2007 series) INFLUENZA VACCINE (#1) 2019 CHLAMYDIA SCREENING 04/24/2019 04/24/2018, 11/19/2016, 10/08/2016, Additional history exists PAP SMEAR 04/24/2021 04/24/2018 DTaP,Tdap,and Td Vaccines (2 - Td) 09/05/2026 09/05/2016 documented as of this encounter Procedures Procedure Name Priority Date/Time Associated Diagnosis Comments ASSIGNMENT OF BENEFITS Routine 06/08/2019 11:13 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
--- OUTSIDE RECORDS SUMMARY | 2019-07-22 14:11 | XMS REPORT | Summary of Care ---
:1996 Author Organization [facility] Address [address] [place] [address] Care Team Providers Name Role Phone Carrie Zaldivar MD Unavailable Unavailable Evelyn Fong [facility] Primary Care Provider Reason for Referral (Routine) Status Reason Specialty Diagnoses / Referred By Referred To Procedures Contact Contact New Request Maternal Diagnoses Supervision of high risk in first trimester Evelyn Fong Medicine Procedures CONSULT MATERNAL MEDICINE ULTRASOUND Preferred Location: Dolores Casas WOOD TREATING INSPECTOR [address] [place] [address] Reason for Visit Reason Comments Referral/consult USG and Vitamins Encounter Details Date Type Department Care Team Description 06/22/2019 Telephone [facility]- Evelyn Fong, [facility] [address] [facility] [address] [place] [phone] Allergies No Known Allergiesdocumented as of this encounter (statuses as of 06/23/2019) Medications Medication Sig Dispensed Refills Start Date End Date Status vit Take 1 Packet by 30 Each 6 06/23/2019 Active 31-zyqs-gpecy-dha mouth daily. (SELECT-OB + DHA) 29 mg iron-1 mg -250 mg combo packIndications: Supervision of high risk in first trimester documented as of this encounter (statuses as of 06/23/2019) Active Problems Problem Noted Date Multiparity 06/08/2019 [...] as of this encounter (statuses as of 06/23/2019) Resolved Problems Problem Noted Date Resolved Date High-risk , second trimester 05/09/2016 09/05/2016 Unsure of last menstrual period as reason for ultrasound 04/30/20162016 scan High-risk supervision, first trimester 04/05/2016 07/05/2016 Chlamydia infection complicating , first trimester 04/05/20162016 Encounter for supervision of other normal , first 03/28/20162015 trimester documented as of this encounter (statuses as of 06/23/2019) Immunizations Name Administration Dates Next Due Influenza [...] filedocumented in this encounter Plan of Treatment Date Type Specialty Care Team Description 07/06/2019 Routine Visit OB Satellites Evelyn Fong, WOOD TREATING INSPECTOR [address] [place] [address] [phone] Health Maintenance Due Date Last Done Comments CHLAMYDIA SCREENING 04/24/2019 04/24/2018, 11/19/2016, 10/08/2016, Additional history exists HPV VACCINES (1 - Female 05/29/2020 Postponed from 2-dose series) 2007 ( or ) MENINGOCOCCAL B VACCINES (1 06/07/2020 Postponed from of 2 - Risk Bexsero 2-dose 2006 ( or series) ) PAP SMEAR 04/24/2021 04/24/2018 DTaP,Tdap,and Td Vaccines 09/05/2026 09/05/2016 (2 - Td) INFLUENZA VACCINE Completed 06/08/2019 PNEUMOCOCCAL 0-64 YEARS Aged Out No longer eligible COMBINED SERIES based on patient's age to complete this topic documented as of this encounter Results Not on filedocumented in this encounter Visit Diagnoses Diagnosis Supervision of high risk in first trimester - Primary Unspecified high-risk documented in this encounter Insurance Payer Benefit Plan Subscriber ID Effective Phone Address Type / Group Dates [place] 2019-Prese [phone] Medicaid WOMEN WOMEN [address] [place] [address] [facility] MEDICAID OF xxxxxxxxx 2019-Prese [phone] [address] Medicaid [place] nt [address] [place] [address] documented as of this encounter
--- OUTSIDE RECORDS SUMMARY | 2019-07-22 14:11 | XMS REPORT | Summary of Care ---
:1996 Author Organization [facility] Address [address] [place] [address] Care Team Providers Name Role Phone Carrie Zaldivar MD Unavailable Unavailable Evelyn Fong [facility] Primary Care Provider Reason for Referral (Routine) Status Reason Specialty Diagnoses / Referred By Referred To Procedures Contact Contact New Request Maternal Diagnoses Supervision of high risk in first trimester Evelyn Fong Medicine Procedures CONSULT MATERNAL MEDICINE ULTRASOUND Preferred Location: Dolores Casas COLOR WEIGHER [address] [place] [address] Reason for Visit Reason Comments Referral/consult USG and Vitamins Encounter Details Date Type Department Care Team Description 06/22/2019 Telephone [facility] Evelyn Fong, [facility] [address] [facility] [address] [place] [phone] Allergies No Known Allergiesdocumented as of this encounter (statuses as of 06/23/2019) Medications Medication Sig Dispensed Refills Start Date End Date Status vit Take 1 Packet by 30 Each 6 06/23/2019 Active 81-igqq-xhqui-dha mouth daily. (SELECT-OB + DHA) 29 mg [...] 07/06/2019 Routine Visit OB Satellites Evelyn Fong, COLOR WEIGHER [address] [place] [address] [phone] Health Maintenance Due Date Last Done Comments [...] Phone Address Type / Group Dates [place] 2019-Prese [phone] Medicaid WOMEN WOMEN [address] [place] [address] [facility] MEDICAID OF xxxxxxxxx 2019-Prese [phone] [address] Medicaid [place] nt [address] [place] [address] documented as of this encounter
--- OUTSIDE RECORDS SUMMARY | 2019-07-22 14:11 | XMS REPORT | Summary of Care ---
:1996 Author Organization [facility] Address [address] [place] [address] Care Team Providers Name Role Phone Carrie Zaldivar MD Unavailable Unavailable Evelyn Fong [facility] Primary Care Provider Reason for Referral (Routine) Status Reason Specialty Diagnoses / Referred By Referred To Procedures Contact Contact New Request Maternal Diagnoses Supervision of high risk in first trimester Evelyn Fong Medicine Procedures CONSULT MATERNAL MEDICINE ULTRASOUND Preferred Location: Dolores Casas LOG CHAIN WORKER [address] [place] [address] Reason for Visit Reason Comments Referral/consult USG and Vitamins Encounter Details Date Type Department Care Team Description 06/22/2019 Telephone [facility]- Evelyn Fong, Referral[facility] [address] [facility] [address] [place] [phone] Allergies No Known Allergiesdocumented as of this encounter (statuses as of 06/23/2019) Medications Medication Sig Dispensed Refills Start Date End Date Status vit Take 1 Packet by 30 Each 6 06/23/2019 Active 77-cmgl-xzois-dha mouth daily. (SELECT-OB + DHA) 29 mg [...] 07/06/2019 Routine Visit OB Satellites Evelyn Fong, LOG CHAIN WORKER [address] [place] [address] [phone] Health Maintenance Due Date Last Done Comments [...] Phone Address Type / Group Dates [place] 2019-Prese [phone] Medicaid WOMEN WOMEN [address] [place] [address] [facility] MEDICAID OF xxxxxxxxx 2019-Prese [phone] [address] Medicaid [place] nt [address] [place] [address] documented as of this encounter
--- OUTSIDE RECORDS SUMMARY | 2019-07-22 14:11 | XMS REPORT | Summary of Care ---
:[address] Author [address] [facility] Address [address] [place] [address] Care Team Providers Name Role Phone Carrie Zaldivar MD Unavailable Unavailable Evelyn Fong Primary Care Provider Reason for Visit Reason Comments Initial Visit Encounter Details Date Type Department Care Team Description 06/08/2019 Initial [facility]- Evelyn Fong Supervision of high risk in first trimester (Primary Dx); Visit TRAVIS Tillman Multiparity; [address] [place] [address] Cramping affecting , antepartum; [place], [place] Nausea and vomiting during prior to 22 weeks gestation; [address] [place], [place] Obesity in ; [phone] Need for prophylactic vaccination and inoculation against influenza [phone] Allergies No Known Allergiesdocumented as of this [...] Comments Blood Pressure 119/78 06/08/2019 1:59 PM SCRIPT COORDINATOR Pulse 91 06/08/2019 1:59 PM SCRIPT COORDINATOR Temperature 36.9 C (98.5 F) 06/08/2019 1:59 PM SCRIPT COORDINATOR Respiratory Rate 16 06/08/2019 1:59 PM SCRIPT COORDINATOR Oxygen Saturation - - Inhaled Oxygen Concentration - - Weight 84.1 kg (185 lb 8 oz) 06/08/2019 1:59 PM SCRIPT COORDINATOR Height 162.6 cm (5' 4") 06/08/2019 1:59 PM SCRIPT COORDINATOR Body Mass Index 31.84 06/08/2019 1:59 PM SCRIPT COORDINATOR documented in this encounter Progress Notes Evelyn Fong, CONCRETE MASON - 06/08/2019 10:45 AM CST Chief complaint: [...] file Gets together: Not on file Attends latter-day service: Not on file Active member of [...] History Narrative No exposure to cats No latter-day preference Denies domestic violence or abuse Patient lives with parents. Social History Substance and Sexual Activity Sexual Activity Yes Partners: Male control/protection: None Comment: Last coitus 06/04/2019 Genetic Screen Autism / Mental Retardation: No Brian Disease: No Congenital Heart Defect: No Cystic Fibrosis: No Down Syndrome: No Familial Dysautonomia: No Hemophilia or other Blood Disorders: No [place] Chorea: No Maternal Metabolic Disorder--specify (eg. Type [...] age. Normal hair distribution. No labial lesion. Cardiovascular Disease Specialist present for the exam: Juan Carlos Gomez, [...] OB Satellites Evelyn Fong FNP [address] [place] [address] [phone] Name Type Priority Associated Diagnoses Date/Time Glucose 1 Hour Post LAB Routine Supervision of high risk 06/08/2019 3:03 PM Prandial in first SCRIPT COORDINATOR trimester CBC WITH DIFF LAB Routine Supervision of high risk 06/08/2019 3:03 PM in first SCRIPT COORDINATOR trimester GC & CHLAMYDIA AMPLIFIED LAB Routine Supervision of high risk 06/08/2019 3 :03 PM ASSAY in first SCRIPT COORDINATOR trimester HEPATITIS B SURFACE LAB Routine Supervision of high risk 06/08/2019 3:03 PM ANTIGEN in first SCRIPT COORDINATOR trimester HIV 1/2 AG-AB WITH REFLEX LAB Routine Supervision of high risk 06/08/2019 3:03 PM in first SCRIPT COORDINATOR trimester RUBELLA SCREEN (LOGAN) LAB Routine Supervision of high risk 06/08/2019 3: 03 PM IGG in first SCRIPT COORDINATOR trimester GALV ONLY - SYPHILIS LAB Routine Supervision of high risk 06/08/2019 3:03 PM IGG/IGM in first SCRIPT COORDINATOR trimester URINE CULTURE LAB Routine Supervision of high risk 06/08/2019 3:03 PM in first SCRIPT COORDINATOR trimester VZV ANTIBODY SCREEN LAB Routine Supervision of high risk 06/08/2019 3:03 PM in first SCRIPT COORDINATOR trimester CBC WITH DIFFERENTIAL LAB Routine Supervision of high risk 06/08/2019 3: 03 PM in first SCRIPT COORDINATOR trimester Name Type Priority Associated Diagnoses Order [...] VACC Routine 06/08/2019 2:40 Need for prophylactic ([id number]), 6+ PM SCRIPT COORDINATOR vaccination and MONTHS, IM, QUAD inoculation against influenza POCT TEST Routine 06/08/2019 1:58 Supervision of high Results for this PM SCRIPT COORDINATOR risk in procedure are in first trimester the results section. documented in this encounter Results POCT TEST (06/08/2019 1:58 PM SCRIPT COORDINATOR) POCT PREG Positive On board controls acceptable [...] Address Type Group Dates MEDICAID MEDICAID PENDING 2019-[address] Pending [place] [address] documented as of this encounter
--- OUTSIDE RECORDS SUMMARY | 2019-07-22 14:11 | XMS REPORT | Summary of Care ---
:1996 Author Organization [facility] Address [address] [place] [address] Care Team Providers Name Role Phone Carrie Zaldivar MD Unavailable Unavailable Evelyn Fong Primary Care Provider Reason for Visit Reason Comments Initial Visit Encounter Details Date Type Department Care Team Description 06/08/2019 Initial [facility]- Evelyn Fong Supervision of high risk in first trimester (Primary Dx); Visit TRAVIS Tillman Multiparity; [address] [place] [address] Cramping affecting , antepartum; [place], [place] Nausea and vomiting during prior to 22 weeks gestation; [address] [place], [place] Obesity in ; [phone] Need for prophylactic vaccination and inoculation against influenza [phone] Allergies No Known Allergiesdocumented as of this [...] Comments Blood Pressure 119/78 06/08/2019 1:59 PM BANANA RIPENING ROOM SUPERVISOR Pulse 91 06/08/2019 1:59 PM BANANA RIPENING ROOM SUPERVISOR Temperature 36.9 C (98.5 F) 06/08/2019 1:59 PM BANANA RIPENING ROOM SUPERVISOR Respiratory Rate 16 06/08/2019 1:59 PM BANANA RIPENING ROOM SUPERVISOR Oxygen Saturation - - Inhaled Oxygen Concentration - - Weight 84.1 kg (185 lb 8 oz) 06/08/2019 1:59 PM BANANA RIPENING ROOM SUPERVISOR Height 162.6 cm (5' 4") 06/08/2019 1:59 PM BANANA RIPENING ROOM SUPERVISOR Body Mass Index 31.84 06/08/2019 1:59 PM BANANA RIPENING ROOM SUPERVISOR documented in this encounter Progress Notes Evelyn Fong, AIRPORT GUIDE - 06/08/2019 10:45 AM CST Chief complaint: [...] file Gets together: Not on file Attends buddhism service: Not on file Active member of [...] History Narrative No exposure to cats No buddhism preference Denies domestic violence or abuse Patient lives with parents. Social History Substance and Sexual Activity Sexual Activity Yes Partners: Male control/protection: None Comment: Last coitus 06/04/2019 Genetic Screen Autism / Mental Retardation: No Brian Disease: No Congenital Heart Defect: No Cystic Fibrosis: No Down Syndrome: No Familial Dysautonomia: No Hemophilia or other Blood Disorders: No [place] Chorea: No Maternal Metabolic Disorder--specify (eg. Type [...] age. Normal hair distribution. No labial lesion. Cuff Cutter present for the exam: Juan Carlos Gomez, [...] OB Satellites Evelyn Fong FNP [address] [place] [address] [phone] Name Type Priority Associated Diagnoses Date/Time Glucose 1 Hour Post LAB Routine Supervision of high risk 06/08/2019 3:03 PM Prandial in first BANANA RIPENING ROOM SUPERVISOR trimester CBC WITH DIFF LAB Routine Supervision of high risk 06/08/2019 3:03 PM in first BANANA RIPENING ROOM SUPERVISOR trimester GC & CHLAMYDIA AMPLIFIED LAB Routine Supervision of high risk 06/08/2019 3 :03 PM ASSAY in first BANANA RIPENING ROOM SUPERVISOR trimester HEPATITIS B SURFACE LAB Routine Supervision of high risk 06/08/2019 3:03 PM ANTIGEN in first BANANA RIPENING ROOM SUPERVISOR trimester HIV 1/2 AG-AB WITH REFLEX LAB Routine Supervision of high risk 06/08/2019 3:03 PM in first BANANA RIPENING ROOM SUPERVISOR trimester RUBELLA SCREEN (LOGAN) LAB Routine Supervision of high risk 06/08/2019 3: 03 PM IGG in first BANANA RIPENING ROOM SUPERVISOR trimester GALV ONLY - SYPHILIS LAB Routine Supervision of high risk 06/08/2019 3:03 PM IGG/IGM in first BANANA RIPENING ROOM SUPERVISOR trimester URINE CULTURE LAB Routine Supervision of high risk 06/08/2019 3:03 PM in first BANANA RIPENING ROOM SUPERVISOR trimester VZV ANTIBODY SCREEN LAB Routine Supervision of high risk 06/08/2019 3:03 PM in first BANANA RIPENING ROOM SUPERVISOR trimester CBC WITH DIFFERENTIAL LAB Routine Supervision of high risk 06/08/2019 3: 03 PM in first BANANA RIPENING ROOM SUPERVISOR trimester Name Type Priority Associated Diagnoses Order [...] VACC Routine 06/08/2019 2:40 Need for prophylactic ([id number]), 6+ PM BANANA RIPENING ROOM SUPERVISOR vaccination and MONTHS, IM, QUAD inoculation against influenza POCT TEST Routine 06/08/2019 1:58 Supervision of high Results for this PM BANANA RIPENING ROOM SUPERVISOR risk in procedure are in first trimester the results section. documented in this encounter Results POCT TEST (06/08/2019 1:58 PM BANANA RIPENING ROOM SUPERVISOR) POCT PREG Positive On board controls acceptable [...] Address Type Group Dates MEDICAID MEDICAID PENDING 2019-[address] [place] [address] documented as of this encounter
--- OUTSIDE RECORDS SUMMARY | 2019-07-22 14:11 | XMS REPORT | Summary of Care ---
:1996 Author Organization [facility] Address [address] [place] [address] Care Team Providers Name Role Phone Carrie Zaldivar MD Unavailable Unavailable Evelyn Fong [facility] Primary Care Provider Reason for Visit Reason Comments Assessment Appointment USG Assessment return phone call Encounter Details Date Type Department Care Team Description 06/29/[address] [facility]- Evelyn Fong, Assessment; [facility] Appointment (USG); [address] [place] [address] [place] Assessment ([place] [address] phone call ) [phone] Allergies No Known Allergiesdocumented as of this encounter (statuses as of 06/29/2019) Medications Medication Sig Dispensed Refills Start Date End Date Status vit Take 1 Packet by 30 Each 6 06/23/2019 Active 51-sbiz-qluxu-dha mouth daily. (SELECT-OB + DHA) 29 mg iron-1 mg -250 mg combo packIndications: Supervision of high risk in first trimester documented as of this encounter (statuses as of 06/29/2019) Active Problems Problem Noted Date Multiparity 06/08/2019 [...] as of this encounter (statuses as of 06/29/2019) Resolved Problems Problem Noted Date Resolved Date High-risk , second trimester 05/09/2016 09/05/2016 Unsure of last menstrual period as reason for ultrasound 04/30/20162016 scan High-risk supervision, first trimester 04/05/2016 07/05/2016 Chlamydia infection complicating , first trimester 04/05/20162016 Encounter for supervision of other normal , first 03/28/20162015 trimester documented as of this encounter (statuses as of 06/29/2019) Immunizations Name Administration Dates Next Due Influenza [...] Treatment Date Type Specialty Care Team Description 06/30/2019 Routine Visit OB Satellites Evelyn Fong, CLINICAL SAFETY SPECIALIST [address] [place] [address] [phone] Health Maintenance Due Date Last Done Comments [...] Phone Address Type / Group Dates [place] 2019-Prese [phone] Medicaid WOMEN WOMEN nt [address] [place] [address] [facility] MEDICAID OF xxxxxxxxx 2019-Prese [phone] [address] Medicaid [place] nt [address] [place] [address] documented as of this encounter
--- OUTSIDE RECORDS SUMMARY | 2019-07-22 14:11 | XMS REPORT | Summary of Care ---
:1996 Author Organization [facility] Address [address] [place] [address] Care Team Providers Name Role Phone Carrie Zaldivar MD Unavailable Unavailable Evelyn Fong Primary Care Provider Reason for Visit Reason Comments Initial Visit Encounter Details Date Type Department Care Team Description 06/08/2019 Initial [facility]- Evelyn Fong Supervision of high risk in first trimester (Primary Dx); Visit TRAVIS Tillman Multiparity; [address] [place] [address] Cramping affecting , antepartum; [place], [place] Nausea and vomiting during prior to 22 weeks gestation; [address] [place], [place] Obesity in ; [phone] Need for prophylactic vaccination and inoculation against influenza [phone] Allergies No Known Allergiesdocumented as of this [...] Comments Blood Pressure 119/78 06/08/2019 1:59 PM BUSINESS SYSTEMS TECHNICIAN Pulse 91 06/08/2019 1:59 PM BUSINESS SYSTEMS TECHNICIAN Temperature 36.9 C (98.5 F) 06/08/2019 1:59 PM BUSINESS SYSTEMS TECHNICIAN Respiratory Rate 16 06/08/2019 1:59 PM BUSINESS SYSTEMS TECHNICIAN Oxygen Saturation - - Inhaled Oxygen Concentration - - Weight 84.1 kg (185 lb 8 oz) 06/08/2019 1:59 PM BUSINESS SYSTEMS TECHNICIAN Height 162.6 cm (5' 4") 06/08/2019 1:59 PM BUSINESS SYSTEMS TECHNICIAN Body Mass Index 31.84 06/08/2019 1:59 PM BUSINESS SYSTEMS TECHNICIAN documented in this encounter Progress Notes Evelyn Fong, ENVIRONMENTAL ASSOCIATE - 06/08/2019 10:45 AM CST Chief complaint: [...] file Gets together: Not on file Attends taoism service: Not on file Active member of [...] History Narrative No exposure to cats No taoism preference Denies domestic violence or abuse Patient lives with parents. Social History Substance and Sexual Activity Sexual Activity Yes Partners: Male control/protection: None Comment: Last coitus 06/04/2019 Genetic Screen Autism / Mental Retardation: No Brian Disease: No Congenital Heart Defect: No Cystic Fibrosis: No Down Syndrome: No Familial Dysautonomia: No Hemophilia or other Blood Disorders: No [place] Chorea: No Maternal Metabolic Disorder--specify (eg. Type [...] age. Normal hair distribution. No labial lesion. Dairy Husbandry Worker present for the exam: Juan Carlos Gomez, [...] OB Satellites Evelyn Fong FNP [address] [place] [address] [phone] Name Type Priority Associated Diagnoses Date/Time Glucose 1 Hour Post LAB Routine Supervision of high risk 06/08/2019 3:03 PM Prandial in first BUSINESS SYSTEMS TECHNICIAN trimester CBC WITH DIFF LAB Routine Supervision of high risk 06/08/2019 3:03 PM in first BUSINESS SYSTEMS TECHNICIAN trimester HEPATITIS B SURFACE LAB Routine Supervision of high risk 06/08/2019 3:03 PM ANTIGEN in first BUSINESS SYSTEMS TECHNICIAN trimester HIV 1/2 AG-AB WITH REFLEX LAB Routine Supervision of high risk 06/08/2019 3:03 PM in first BUSINESS SYSTEMS TECHNICIAN trimester RUBELLA SCREEN (LOGAN) LAB Routine Supervision of high risk 06/08/2019 3: 03 PM IGG in first BUSINESS SYSTEMS TECHNICIAN trimester GALV ONLY - SYPHILIS LAB Routine Supervision of high risk 06/08/2019 3:03 PM IGG/IGM in first BUSINESS SYSTEMS TECHNICIAN trimester VZV ANTIBODY SCREEN LAB Routine Supervision of high risk 06/08/2019 3:03 PM in first BUSINESS SYSTEMS TECHNICIAN trimester CBC WITH DIFFERENTIAL LAB Routine Supervision of high risk 06/08/2019 3: 03 PM in first BUSINESS SYSTEMS TECHNICIAN trimester Name Type Priority Associated Diagnoses Order Schedule Glucose 1 Hour Post LAB Routine Supervision of high risk Expected: 2019, Prandial in first Expires: 06/08/2020 trimester CBC WITH DIFF LAB Routine Supervision of high risk Expected: 06/08/2019, in first Expires: 06/08/2020 trimester HEPATITIS B [...] 2019, IGG/IGM in first Expires: 06/08/2020 trimester VZV ANTIBODY [...] VACC Routine 06/08/2019 2:40 Need for prophylactic ([id number]), 6+ PM BUSINESS SYSTEMS TECHNICIAN vaccination and MONTHS, IM, QUAD inoculation against influenza POCT TEST Routine 06/08/2019 1:58 Supervision of high Results for this PM BUSINESS SYSTEMS TECHNICIAN risk in procedure are in first trimester the results section. documented in this encounter Results POCT TEST (06/08/2019 1:58 PM BUSINESS SYSTEMS TECHNICIAN) POCT PREG Positive On board controls acceptable [...] Address Type Group Dates MEDICAID MEDICAID PENDING 2019-[address] Pending [place]ING [place] [address] [address]Home) [place] [address] documented as of this encounter
--- OUTSIDE RECORDS SUMMARY | 2019-07-22 14:12 | XMS REPORT | Summary of Care ---
:1995 Author Organization [facility] Address [address] [place] [address] Care Team Providers Name Role Phone Carrie Zaldivar MD Unavailable Unavailable Evelyn Fong LICENSED SURVEYOR Primary Care Provider Reason for Visit Reason Comments Assessment hemorrhoids. Encounter Details Date Type Department Care Team Description [facility] (hemorrhoids. ) [address] [facility] [address] [place] [id number] Allergies No Known Allergiesdocumented as of this encounter (statuses as of 07/21/2019) Medications Medication Sig Dispensed Refills Start Date End Date Status vit Take 1 Packet by 30 Each 6 06/23/2019 Active 72-qfjt-huiwd-dha mouth daily. (SELECT-OB + DHA) 29 mg iron-1 mg -250 mg combo packIndications: Supervision of high risk in first trimester documented as of this encounter (statuses as of 07/21/2019) Active Problems Problem Noted Date Multiparity 06/08/2019 [...] as of this encounter (statuses as of 07/21/2019) Resolved Problems Problem Noted Date Resolved Date High-risk , second trimester 05/09/2016 09/05/2016 Unsure of last menstrual period as reason for ultrasound 04/30/20162016 scan High-risk supervision, first trimester 04/05/2016 07/05/2016 Chlamydia infection complicating , first trimester 04/05/20162016 Encounter for supervision of other normal , first 03/28/20162015 trimester documented as of this encounter (statuses as of 07/21/2019) Immunizations Name Administration Dates Next Due Influenza [...] Payer Benefit Plan / Subscriber ID Effective Dates Phone Address Type Group TMHP MEDICAID OF xxxxxxxxx 2019-Present [phone] [address] Medicaid [place] [id number] [place] [phone] documented as of this encounter
--- OUTSIDE RECORDS SUMMARY | 2019-07-22 14:12 | XMS REPORT | Summary of Care ---
:1995 Author Organization [facility] Address [address] [place] [address] Care Team Providers Name Role Phone Carrie Zaldivar MD Unavailable Unavailable Evelyn Fong HOT STONE SETTER Primary Care Provider Reason for Referral Radiology Services (STAT) Status Reason Specialty Diagnoses / Referred By Referred To Procedures Contact Contact New Request Diagnostic Diagnoses Periumbilical abdominal pain Hipolito Vega, Radiology Procedures US FIRST TRIMESTER LESS THAN 14 WEEKS WITH TRANSVAGINAL US TRANSVAGINAL [address] [place] [address] [address] [place] [address] Reason for Visit Reason Comments Abdominal Pain approx 11 weeks Auth/Cert Status Reason Specialty Diagnoses / Referred By Referred To Procedures Contact Contact [facility] [address] [place] [address] Encounter Details Date Type Department Care Team Description 07/02/2019 Emergency [facility] Hipolito Vega MD Periumbilical abdominal pain (Primary Dx); Department [address] [facility] Threatened miscarriage [address] [place] [address] [address] [place] [address] [place] [address] Allergies No Known Allergiesdocumented as of this encounter (statuses as of 07/02/2019) Medications Medication Sig Dispensed Refills Start Date End Date Status vit Take 1 Packet by 30 Each 6 06/23/2019 Active 73-oxcf-hccah-dha mouth daily. (SELECT-OB + DHA) 29 mg iron-1 mg -250 mg combo packIndications: Supervision of high risk in first trimester documented as of this encounter (statuses as of 07/02/2019) Active Problems Problem Noted Date Multiparity 06/08/2019 [...] as of this encounter (statuses as of 07/02/2019) Resolved Problems Problem Noted Date Resolved Date High-risk , second trimester 05/09/2016 09/05/2016 Unsure of last menstrual period as reason for ultrasound 04/30/20162016 scan High-risk supervision, first trimester 04/05/2016 07/05/2016 Chlamydia infection complicating , first trimester 04/05/20162016 Encounter for supervision of other normal , first 03/28/20162015 trimester documented as of this encounter (statuses as of 07/02/2019) Immunizations Name Administration Dates Next Due Influenza [...] Sign Reading Time Taken Comments Blood Pressure 101/56 07/02/2019 4:00 AM [facility] Pulse 88 07/02/2019 4:00 AM [facility] Temperature 36.9 C (98.5 F) 07/02/2019 3:18 AM [facility] Respiratory Rate 16 07/02/2019 4:00 AM [facility] Oxygen Saturation 99% 07/02/2019 4:00 AM [facility] HAND Inhaled Oxygen Concentration - - Weight 79.4 kg (175 lb) 07/02/2019 3:18 AM [facility] Height - - Body Mass Index 30.04 06/08/2019 1:59 PM [facility] documented in this encounter Discharge Instructions InstructionsNeHipolito ruth MD - 07/02/2019 RETURN FOR ANY QUESTIONS OR CONCERNS Today you were seen by Hipolito Vega Jr., MD You were seen today for Chief Complaint Patient presents with Abdominal Pain approx 11 weeks Your ER diagnosis was ICD-10-CM ICD-9-CM 1. Periumbilical abdominal pain R10.33 789.05 2. Threatened miscarriage O20.0 640.00 NO LIFE-THREATENING FINDINGS ON TODAY'S EXAM. YOUR PRESCRIPTIONS : Check out [employer] for medication discounts Medication List ASK your doctor about these medications vit 74-llyc-clbwh-dha 29 mg iron-1 mg -250 mg combo pack Commonly known as: SELECT-OB + DHA Take 1 Packet by mouth daily. ER precautions and follow up : 1. Return to ER if your symptoms should worsen or fail to improve within 72 hours. 2. The care provided in the emergency room was for acute problems only. 3. You should follow up with your primary care provider within 72 hours. 4. Fill and take all your medications as prescribed. 5. Make sure you are staying adequately hydrated. Busque attencion immediatamente si usted tiene los sitomas sigue, vuelve peor o si hay sitomas nuevas o para cualquiera preoccupacion incluyendo dolor del pecho , falta aire, se siente debile, mas fievre, mas dolor, nausea, vomitando, sangrando que no es normal, confusion, baja or pierdas conciencia. MAY FOLLOW-UP WITH A PROVIDER OF YOUR CHOICE, SUCH : 1. A PHYSICIAN OF YOUR CHOICE 2. [facility], . LOCATIONS IN [facility] 3. [facility], [address], [place]; OR, IF YOU WISH TO FOLLOW-UP WITHIN THE [facility], MAY TRY THESE OPTIONS (CLINIC APPOINTMENTS AVAILABLE ON ESRR-[id number] BASIS): 1. SCHEDULE AN APPOINTMENT ONLINE AT WWW[facility] 2. OR CALL THE [facility] ACCESS CENTER AT OR 3. OR CALL YOUR [facility] PHYSICIAN'S OFFICE DIRECTLY IF YOU ARE ALREADY AN ESTABLISHED [facility] PATIENT. [facility] RETURN TO WORK / SCHOOL EXCUSE Aida Rodriguez WAS SEEN IN THE ER AND DISCHARGED 07/02/2019 TODAY, 5:47 AM & May return to Work / School / Incarceration on X with activity as tolerated indicated below. ___The following limitations apply until pt is seen by Physician and cleared to return to normal activity. _X_ Off for two days and return to activity as tolerated at work or school ___ No Sports ___ No work ___ Do not return until fever free for 24 hours. ___ No school HIPOLITO VEGA Jr., MD [facility] EMERGENCY DEPRTMENT [address] [place] [address] [place] [address] ### The patient may have been given Narcotic pain medications during their stay in the ED that may show up on a Drug Screen. The hospital discharge paper work will identify these medications. AttachmentsThe following attachments cannot be sent through Care Everywhere.Possible Miscarriage (Threatened ) ([place] Island[place])Abdominal Pain, Early ([place])documented in this encounter Plan of Treatment Health [...] Procedure Name Priority Date/Time Associated Diagnosis Comments US FIRST STAT 07/02/2019 5:23 Periumbilical Results for this TRIMESTER LESS THAN AM [facility] abdominal pain procedure are in 14 WEEKS WITH the results TRANSVAGINAL section. CBC WITH DIFFERENTIAL STAT 07/02/2019 3:39 Periumbilical Results for this AM [facility] abdominal pain procedure are in the results section. CBC WITH DIFFERENTIAL Routine 07/02/2019 3:39 Periumbilical Results for this AM [facility] abdominal pain procedure are in the results section. TOTAL BETA HCG ASSAY STAT 07/02/2019 3:39 Periumbilical Results for this AM [facility] abdominal pain procedure are in the results section. BASIC METABOLIC PANEL STAT 07/02/2019 3:39 Periumbilical Results for this (NA, K, CL, CO2, AM [facility] abdominal pain procedure are in GLUCOSE, BUN, the results CREATININE, CA) section. HEPATIC FUNCTION STAT 07/02/2019 3:39 Periumbilical Results for this PANEL ([id number]) AM [facility] abdominal pain procedure are in (ALB,T.PRO,BILI the results T,BU/BC,ALT,AST,ALK section. PHOS) URINALYSIS STAT 07/02/2019 3:38 Periumbilical Results for this AM [facility] abdominal pain procedure are in the results section. CONSENT/REFUSAL FOR Routine 07/02/2019 3:05 DIAGNOSIS AND AM [facility] TREATMENT documented in this encounter Results US FIRST TRIMESTER LESS THAN 14 WEEKS WITH TRANSVAGINAL (07/02/2019 5 :23 AM [facility] HAND) Specimen Impressions Performed At Single live intrauterine gestation, 9 weeks 0 days space on pole PACS/VR/DOSE measurements. No evidence of ectopic . Narrative Performed At PACS/VR/DOSE CLINICAL HISTORY: . Pain. Abnormal exam. COMPARISON: None TECHNIQUE: Ultrasound of the pelvis performed. Images were acquired for permanent storage in the patient's medical record. FINDINGS: An intrauterine gestation. Gestational sac 34 mm, 8 weeks 6 days. pole 22 mm, 9 weeks 0 days. heart rate 163 beats per minutes. Right ovary 27 x 25 x 19 mm. Simple right ovarian cyst 12 x 11 x 13 mm. Left ovary 25 x 33 x 15 mm. Vascular flow identified within both ovaries. Waveforms without spectral broadening. Procedure Note [facility], Radiant Results Inft User - 07/02/2019 5:36 AM WRAPPER HAND CLINICAL HISTORY: . Pain. Abnormal exam. COMPARISON: None TECHNIQUE: Ultrasound of the pelvis performed. Images were acquired for permanent storage in the patient's medical record. FINDINGS: An intrauterine gestation. Gestational sac 34 mm, 8 weeks 6 days. pole 22 mm, 9 weeks 0 days. heart rate 163 beats per minutes. Right ovary 27 x 25 x 19 mm. Simple right ovarian cyst 12 x 11 x 13 mm. Left ovary 25 x 33 x 15 mm. Vascular flow identified within both ovaries. Waveforms without spectral broadening. IMPRESSION Single live intrauterine gestation, 9 weeks 0 days space on pole measurements. No evidence of ectopic . Performing Organization Address City/State/Zipcode Phone Number PACS/VR/DOSE CBC WITH DIFFERENTIAL (07/02/2019 3:39 AM [facility] HAND) WBC 8.83 4.30 - 11.10 [facility] 10*3/L [facility] RBC 3.89 (L) 3.93 - 5.25 [facility] 10*6/L [facility] HGB 11.5 (L) 11.6 - 15.0 [facility] g/dL [facility] HCT 35.3 (L) 35.7 - 45.2 % [facility] MCV 90.7 80.6 - 95.5 fL [facility] MCH 29.6 25.9 - 32.8 pg [facility] MCHC 32.6 31.6 - 35.1 [facility] g/dL [facility] RDW-SD 38.0 (L) 39.0 - 49.9 fL [facility] RDW-CV 11.4 (L) 12.0 - 15.5 % [facility] PLT 286 166 - 358 [facility] 10*3/L [facility] MPV 10.2 9.5 - 12.9 fL [facility] NRBC/100 WBC 0.0 0.0 - 10.0 /100 [facility] WBCs [facility]OS[facility]ITAL [facility] NRBC x10^3 <0.01 10*3/L [facility] GRAN MAT (NEUT) % 58.8 % [facility] IMM GRAN % 0.30 % [facility] LYMPH % 32.3 % [facility] MONO % 7.2 % [facility] EOS % 1.1 % [facility] BASO % 0.3 % [facility] GRAN MAT x10^3(ANC) 5.18 1.88 - 7.09 [facility] 10*3/uL [facility]ITAL [facility] IMM GRAN x10^3 0.03 0.00 - 0.06 [facility] 10*3/uL [facility] LYMPH x10^3 2.85 1.32 - 3.29 [facility] 10*3/uL [facility] MONO x10^3 0.64 0.33 - 0.92 [facility] 10*3/uL [facility] EOS x10^3 0.10 0.03 - 0.39 [facility] 10*3/uL [facility] BASO x10^3 0.03 0.01 - 0.07 [facility] 10*3/uL [facility]PITAL [facility] Specimen Blood - VENOUS Performing Organization Address City/[facility]/Zipcode Phone Number [facility] CLIA: [id number], [address] [place] [id number] [address] TOTAL BETA HCG ASSAY (07/02/2019 3:39 AM WRAPPER HAND) [facility] BETA HCG 140,310.00 Non- female [facility] and male patients: HOSPITAL LABORATORY <5 mIU/mL Specimen Blood - VENOUS Narrative Performed At [facility] Gestational Age Range (mIU/mL) 1-10 Weeks [id number] 11-15 Weeks [id number] 16-22 Weeks [id number] 23-40 Weeks [id number] Biotin has been reported to cause a negative bias, interpret results relative to patient's use of biotin. Performing Organization Address City/[facility]/Zipcode Phone Number [facility] CLIA: [id number], [address] [place] [address] Hepatic Function Panel (ALB, T.PRO, BILI T, BU/BC, ALT, AST, ALK PHOS) (2019 3:39 AM WR[facility]) TOTAL BILI 0.2 0.1 - 1.1 mg/dL [facility] BILI UNCON 0.0 (L) 0.1 - 1.1 mg/dL [facility] BILI CONJ 0.0 0.0 - 0.3 mg/dL [facility] T PROTEIN 7.5 6.3 - 8.2 g/dL [facility] ALBUMIN 4.2 3.5 - 5.0 g/dL [facility] ALK PHOS 58 34 - 122 U/L [facility] ALTv 16 5 - 35 U/L [facility] AST(SGOT) 18 13 - 40 U/L [facility] Specimen Blood - VENOUS Performing Organization Address City/State/Zipcode Phone Number [facility] CLIA: [id number], [address] [place] [address] Basic Metabolic Panel (NA, K, CL, CO2, GLUCOSE, BUN, CREATININE, CA) (2019 3:39 AM [facility] HAND) NA 137 135 - 145 [facility] mmol/L [facility] K 3.8 3.5 - 5.0 [facility] mmol/L [facility] CL 103 98 - 108 mmol/L [facility] CO2 TOTAL 28 23 - 31 mmol/L [facility] AGAP 6 2 - 16 [facility] BUN 9 7 - 23 mg/dL [facility] GLUCOSE 88 70 - 110 mg/dL [facility] CREATININE 0.40 (L) 0.50 - 1.04 [facility] mg/dL [facility] CALCIUM 9.5 8.6 - 10.6 [facility] mg/dL [facility] eGFR Calculation 197.8 mL/min/1.73m2 [facility] (Non[facility]ORATORY Mauritian) eGFR Calculation 239.7 mL/min/1.73m2 [facility] () [facility] Specimen Blood - VENOUS Narrative Performed At Association of Glomerular Filtration Rate (GFR) [facility] and Staging of Kidney Disease* + + +- + | GFR (mL/min/1.73 m2) | With Kidney Damage | Without Kidney Damage + + +- + | >90 | Stage one | Normal + + +- + | 60-89 | Stage two | Decreased GFR + + +- + | 30-59 | Stage three | Stage three + + +- + | 15-29 | Stage four | Stage four + + +- + | <15 (or dialysis) | Stage five | Stage five + + +- + *Each stage assumes the associated GFR level has been in effect for at least three months. Stages 1 to 5, with or without kidney disease, indicate chronic kidney disease. Notes: Determination of stages one and two (with eGFR >59mL/min/1.73 m2) requires estimation of kidney damage for at least three months as defined by structural or functional abnormalities of the kidney, manifested by either: Pathological abnormalities or Markers of kidney damage (including abnormalities in the composition of the blood or urine or abnormalities in imaging tests). Performing Organization Address [facility] Phone Number [facility] CLIA: [id number], [address] [place] [address] Urinalysis (07/02/2019 3:38 AM WRAPPER HAND) APPEARANCE Hazy (A) Clear [facility] COLOR Yellow Yellow [facility] PH 7.0 4.8 - 8.0 [facility] SP GRAVITY 1.015 1.003 - 1.030 [facility] GLU U QUAL Normal Normal [facility] BLOOD Negative Negative [facility] KETONES Negative Negative [facility] PROTEIN Negative Negative [facility] UROBILIN Normal Normal [facility] BILIRUBIN Negative Negative [facility] NITRITE Negative Negative [facility] LEUK MARK 25/uL (A) Negative [facility] RBC/HPF 2 0 - 3 HPF [facility] WBC/HPF 4 0 - 5 HPF [facility] BACTERIA Few (A) Negative [facility] MUCOUS Slight (A) Negative LPF [facility] SQ EPITH 3 HPF [facility] Specimen Urine - URINE, CLEAN CATCH Performing Organization Address [facility] Phone Number [facility] CLIA: [id number], [address] [place] [address] documented in this encounter Visit Diagnoses Diagnosis Periumbilical abdominal pain - Primary Abdominal pain, periumbilic Threatened miscarriage Threatened , unspecified as to episode of care documented in this encounter Insurance Payer Benefit Plan / Subscriber ID Effective Dates Phone Address Type Group [employer]HP MEDICAID OF xxxxxxxxx 2019-Present [phone] [address] Medicaid [place] [id number] [place] [phone] documented as of this encounter"
[2019-07-22 15:36] LABS: Urine Blood 2+ (NEG); Urine Glucose NEGATIVE (NEG); Urine Protein 1+ (NEG); Urine Specific Gravity 1.025 (1.005-1.030); Urine pH 5.5 (5.0-7.0)
--- NOTE | 2019-07-22 15:58 | EDPHYS ---
Physician Documentation [facility] Name: Aida Rodriguez Age: 24 yrs Sex: Female : 1995 Arrival Date: 07/22/2019 Time: 14:10 Bed 24 Private MD: ED Physician Saad Arias HPI: 07/22 14:44 This 24 yrs old Female presents to ER via Ambulatory with complaints of ps1 Vaginal Bleeding, + Preg <12wks. 14:44 Currently 12 wks EGA. Patient states that she had previous encounter for threatened AB. ps1 Had US + IUP \T\ 7 weeks at last visit. States that she had intercourse last night. On pelvic precautions from last visit. Has VB today. No pain. States that she additionally has HX of hemorrhoids but believes that this is VB. Does not know her blood type. . POST ACUTE CARE NURSE: 14:30 Verified vc Historical: - Allergies: 14:17 NKA; ph - PMHx: 14:17 None; ph - PSHx: 14:17 None; ph - Immunization history:: Adult Immunizations up to date. - Social history:: Patient/guardian denies using alcohol, street drugs, tobacco products, Smoking status: Patient denies any tobacco usage or history of. ROS: 14:44 Constitutional: Negative for fever, chills, and weight loss, ENT: Negative for injury, ps1 pain, and discharge, Cardiovascular: Negative for chest pain, palpitations, and edema, Respiratory: Negative for shortness of breath, cough, wheezing, and pleuritic chest pain, Abdomen/GI: Negative for abdominal pain, nausea, vomiting, diarrhea, and constipation, MS/Extremity: Negative for injury and deformity, Skin: Negative for injury, rash, and discoloration, Neuro: Negative for headache, weakness, numbness, tingling, and seizure. 14:44 : Positive for vaginal bleeding. Exam: 14:44 Constitutional: This is a well developed, well nourished patient who is awake, alert, ps1 and in no acute distress. Head/Face: Normocephalic, atraumatic. Eyes: Pupils equal round and reactive to light, extra-ocular motions intact. Lids and lashes normal. Conjunctiva and sclera are non-icteric and not injected. Cardiovascular: Regular rate and rhythm. No gallops, murmurs, or rubs. Normal PMI, no JVD. No pulse deficits. Respiratory: Lungs have equal breath sounds bilaterally, clear to auscultation and percussion. No rales, rhonchi or wheezes noted. No increased work of breathing, no retractions or nasal flaring. Abdomen/GI: Soft, non-tender, with normal bowel sounds. No distension or tympany. No guarding or rebound. No evidence of tenderness throughout. Skin: Warm, dry with normal turgor. Normal color with no rashes, no lesions, and no evidence of cellulitis. MS/ Extremity: Pulses equal, no cyanosis. Neurovascular intact. Full, normal range of motion. 14:44 : Pelvic Exam: External exam: small amount of VB. , Rectal exam: is normal, hemorrhoid(s), are not appreciated. Vital Signs: 14:14 BP 123 / 69; Pulse 95; Resp 17; Temp 98.2; Pulse Ox 99% ; Weight 79.38 kg; Height 5 ft. ph 4 in. (162.56 cm); Pain 6/10; 15:00 BP 105 / 64; Pulse 80; Resp 16; Pulse Ox 100% on R/A; vc 16:15 BP 96 / 59; Pulse 77; Resp 15; Pulse Ox 100% on R/A; vc 14:14 Body Mass Index 30.04 (79.38 kg, 162.56 cm) ph Procedures: 14:48 Ultrasound: Type: abdominal US, performed by the emergency department physician, ps1 Multiple views obtained with Doppler and M-mode. IUP present with FHT \T\158. . MDM: 14:41 Patient medically screened. ps1 16:08 Data reviewed: vital signs, nurses notes, lab test result(s), and as a result, I will ps1 discharge patient. 07/22 14:44 Order name: Abo/rh Typing; Complete Time: 15:48 ps1 07/22 15:01 Order name: Urine Dipstick--Ancillary (enter results) eb 07/22 14:44 Order name: Urine Dipstick-Ancillary (obtain specimen); Complete Time: 15:14 ps1 07/22 15:01 Order name: Urine --Ancillary (enter results) eb 07/22 15:01 Order name: Urine Culture eb 07/22 15:01 Order name: Urine Microscopic Only eb Administered Medications: No medications were administered Point of Care Testing: Urine : 14:30 hCG Reading: Positive; Control Reading: Positive; vc Disposition: 07/22/19 15:57 Discharged to Home. Impression: Threatened , Acute Cystitis in . - Condition is Stable. - Discharge Instructions: Threatened Miscarriage, and Urinary Tract Infection. - Prescriptions for Keflex 500 mg Oral Capsule - take 1 capsule by ORAL route every 8 hours for 5 days; 15 capsule. - Medication Reconciliation Form, Thank You Letter, Antibiotic Education, Prescription Opioid Use form. - Follow up: Private Physician; When: 48 Hours; Reason: Further diagnostic work-up, Recheck today's complaints, Continuance of care, Re-evaluation by your physician. Follow up: Emergency Department; When: As needed; Reason: Fever > 102 F, Worsening of condition. - Problem is new. - Symptoms have improved. Signatures: Dispatcher [employer] EDAnna Brasher RN RN ph Saad Arias MD MD ps1 Maryann Phillips RN RN vc Corrections: (The following items were deleted from the chart) 16:29 15:57 07/22/2019 15:57 Discharged to Home. Impression: Threatened ; Acute vc Cystitis in . Condition is Stable. Forms are Medication Reconciliation Form, Thank You Letter, Antibiotic Education, Prescription Opioid Use. Follow up: Private Physician; When: 48 Hours; Reason: Further diagnostic work-up, Recheck today's complaints, Continuance of care, Re-evaluation by your physician. Follow up: Emergency Department; When: As needed; Reason: Fever > 102 F, Worsening of condition. Problem is new. Symptoms have improved. ps1
--- NOTE | 2019-07-22 15:58 | ER ---
Nurse's Notes [facility] Name: Aida Rodriguez Age: 24 yrs Sex: Female : 1995 Arrival Date: 07/22/2019 Time: 14:10 Bed 24 Private MD: Diagnosis: Threatened ;Acute Cystitis in Presentation: 07/22 14:14 Chief complaint: Patient states: Bleeding Hemoriod with constipation for 1 week, with ph lower abdominal pain x 2 days. 12 weeks . G3, P2. No fever. Ducolax made it worse. Coronavirus screen: The patient has NOT traveled to [place] in the past 14 days. Proceed with normal triage procedures. Ebola Screen: No symptoms or risks identified at this time. Initial Sepsis Screen: Does the patient meet any 2 criteria? No. Patient's initial sepsis screen is negative. Does the patient have a suspected source of infection? No. Patient's initial sepsis screen is negative. Risk Assessment: Do you want to hurt yourself or someone else? Patient reports no desire to harm self or others. 14:14 Method Of Arrival: Ambulatory ph 14:14 Acuity: REZA 3 ph 14:30 Onset of symptoms was July 22, 2019. vc 14:30 Onset of symptoms was July 22, 2019. vc Triage Assessment: 14:26 General: Appears in no apparent distress. uncomfortable, Behavior is calm, cooperative, vc appropriate for age. Pain: Complains of pain in rectum. 14:30 : Reports vaginal bleeding that is. vc HARMONIC ANALYST: 14:30 Verified vc Historical: - Allergies: 14:17 NKA; ph - PMHx: 14:17 None; ph - PSHx: 14:17 None; ph - Immunization history:: Adult Immunizations up to date. - Social history:: Patient/guardian denies using alcohol, street drugs, tobacco products, Smoking status: Patient denies any tobacco usage or history of. Screenin:26 Abuse screen: Denies threats or abuse. Nutritional screening: No deficits noted. vc Tuberculosis screening: No symptoms or risk factors identified. Fall Risk None identified. Assessment: 14:30 Obstetrical Assessment: General assessment: awake and alert, skin warm and dry. vc 14:30 General: Appears in no apparent distress. distressed. Pain: Denies pain. Neuro: Level vc of Consciousness is awake, alert, obeys commands, Oriented to person, place, time. Cardiovascular: Capillary refill < 3 seconds Patient's skin is warm and dry. Respiratory: Respiratory effort is even, unlabored, Respiratory pattern is regular, symmetrical. GI: No signs and/or symptoms were reported involving the gastrointestinal system. : Reports vaginal bleeding that is. EENT: No signs and/or symptoms were reported regarding the EENT system. Derm: Skin temperature is warm. Musculoskeletal: Circulation, motion, and sensation intact. Range of motion: intact in all extremities. 15:30 Reassessment: Patient and/or family updated on plan of care and expected duration. Pain vc level reassessed. Patient is alert, oriented x 3, equal unlabored respirations, skin warm/dry/pink. 16:15 Reassessment: Patient and/or family updated on plan of care and expected duration. Pain vc level reassessed. Patient is alert, oriented x 3, equal unlabored respirations, skin warm/dry/pink. Patient denies pain at this time. Vital Signs: 14:14 BP 123 / 69; Pulse 95; Resp 17; Temp 98.2; Pulse Ox 99% ; Weight 79.38 kg; Height 5 ft. ph 4 in. (162.56 cm); Pain 6/10; 15:00 BP 105 / 64; Pulse 80; Resp 16; Pulse Ox 100% on R/A; vc 16:15 BP 96 / 59; Pulse 77; Resp 15; Pulse Ox 100% on R/A; vc 14:14 Body Mass Index 30.04 (79.38 kg, 162.56 cm) ph Vitals: 14:39 Heart Tones 158. vc ED Course: 14:10 Patient arrived in ED. fj1 14:14 Saad Arias MD is Attending Physician. ps1 14:16 Triage completed. ph 14:17 Arm band placed on left wrist. Patient placed in an exam room. ph 14:18 Maryann Phillips, PAOLA is Primary Nurse. vc 14:30 Patient has correct armband on for positive identification. Placed in gown. Bed in low vc position. Side rails up X 1. Pulse ox on. NIBP on. 14:40 Served as a data warehouse manager during rectal exam. vc 15:14 Urine Microscopic Only Sent. vc 15:14 Urine Culture Sent. vc 15:14 Urine --Ancillary (enter results) Sent. vc 15:14 Urine Dipstick--Ancillary (enter results) Sent. vc 15:14 Abo/rh Typing Sent. vc 16:27 IV discontinued, intact, bleeding controlled, No redness/swelling at site. Pressure vc dressing applied. Administered Medications: No medications were administered Point of Care Testing: Urine : 14:30 hCG Reading: Positive; Control Reading: Positive; vc Outcome: 15:57 Discharge ordered by . ps1 16:27 Discharged to home ambulatory, with significant other. vc 16:27 Condition: good 16:27 Discharge instructions given to patient, significant other, Instructed on discharge instructions, follow up and referral plans. medication usage, Demonstrated understanding of instructions, follow-up care, medications, Prescriptions given X 1. 16:29 Patient left the ED. vc Signatures: Anna Lyle, RN RN Saad Vargas MD MD ps1 Maryann Phillips RN RN Delroy Boyd [facility]
[2019-07-22 16:30] LABS: Urine Bacteria <20 /HPF (<20); Urine Mucus 1+ /HPF (NONE SEEN)
[2019-07-22 16:35] VITALS: BP 123/69; TEMP 98.2; O2SAT 99
== END 2019-07-22 16:29 | disposition home or self-care (01) ==
LOC: ER 14:06
DX: O20.0 Threatened abortion (principal); O23.11 Infections of bladder in pregnancy, first trimester; N30.00 Acute cystitis without hematuria; Z3A.12 12 weeks gestation of pregnancy
CPT/HCPCS: 81003; 81015; 81025; 86900; 86901; 87086; 87088; 99284

== ENCOUNTER 2022-01-23 18:45 | Emergency (ER) | payer OTHER ==
[2012-01-13 12:50] VITALS: BP 132/71
--- OUTSIDE RECORDS SUMMARY | 2022-01-23 18:48 | XMS REPORT | Continuity of Care Document ---
:1995 Author Organization [facility] t Address [address] [place] [address] Care Team Providers Name Role Phone EVELYN FONG Primary Care Physician Unavailable ROSALVA ORTEGA Attending Clinician Unavailable EVELYN FONG Attending Clinician Unavailable Heidi WHCNRosalva Batista Attending Clinician [phone] Evelyn Celestin Attending Clinician 1, [facility] Attending Clinician Unavailable Elvin Pascual MD Attending Clinician Vargas Pichardo DO Attending Clinician CINTHYA ALEX Attending Clinician Unavailable Cinthya Goode Attending Clinician Payers Payer Name Policy Type Policy Number Effective Date Expiration Date Renee OLIVASS [id number] 2019 HEALTH 00:00:00 Problems Condition Condition Condition Status Onset Resolution Last Treating Co mments Source Name Details Category Date Date Treatment Clinician Date 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 pending marva Multiparit Multiparit Disease Active U nivers y y 5-05 ity of 00:00: Medical Branch History of History of Disease Active Overview : Univers - Formattin ity of section section 00:00: g of this note Medical might be Branch different from the original. Due to herpes outbreak , primary c section History of History of Disease Active Overview : Univers 09-27 Formattin ity o f delivery delivery 00:00: g of this [place] 00 note Medical might be Branch different from the original. x1 [id number] SPROM baby num 2, not intereste d in marcel Nausea and Nausea and Disease Active U nivers vomiting vomiting 5-05 ity of in in 00:00: [place] 00 [facility] Branch Obesity in Obesity in Disease Active U nivers 5-05 ity of 00:00: [place] Medical [facility] Vaginal Vaginal Disease Active Univers discharge discharge 1-19 ity of 00:: Medical Branch BMI BMI Disease Active Univers 30.0-30.9, 30.0-30.9, 1-19 it y of adult adult 00:00: Medical Branch Generalize Generalize Disease Active U nivers d anxiety d anxiety 6-11 ity of disorder disorder 00:00: Medical Branch Herpes Herpes Disease Active Overview: Univer s infection infection 4-29 Formattin i ty of in in 00:00: g of this [place] 00 note [facility] might be Branch different from the original. Suppressi on at 36 weeks Closed Closed Disease Active Univers displaced displaced 4-25 ity of fracture fracture 00:00: [place] of fifth of fifth 00 Medica l metatarsal metatarsal Br anch bone bone Supervisio Supervisio Disease Active U nivers n of high n of high 4-13 ity of risk risk 00:00: [place] , , 00 Me dical antepartum antepartum Br anch BV BV Disease Active 2015-05 Univers (bacterial (bacterial 2-18 it y of vaginosis) vaginosis) [place] Family Family Disease Active 2015-05 Univers history of history of 2-15 it y of breast breast 00:00: [place] cancer in cancer in 00 [facility] mother mother Branch False False Disease Active 2015-05 Univers positive positive 1-11 ity of serologica serologica [place] test for l test for 00 Me dical hepatitis hepatitis Bran ch C C Allergies, Adverse Reactions, Alerts Allergy Allergy Status Severity Reaction(s) Onset Inactive Treating Comm ents Source Name Type Date Date Clinician NO KNOWN Drug Active Univers ALLERGIE Class ity of S [facility] Social History Social Habit Start Date Stop Date Quantity Comments Source ASSERTION 2021-08-05 [facility] 00:00:00 [facility] Exposure to 2022-01-08 2022-01-18 Not sure [facility] SARS-CoV-2 00:00:00 08:37:00 [facility] [place] [facility] (event) [place] Alcohol intake 2022-01-18 2022-01-18 0 /d [facility] 00:00:00 00:00:00 [facility] Tobacco use and 2022-01-18 2022-01-18 Smokeless tobacco Un iversity of exposure 00:00:00 00:00:00 non-user [facility] History of 2015-09-26 Cigarette Smoker [facility] ty of tobacco use 00:00:00 [facility] Sex Assigned At [birth year] Universit y of 00:00:00 00:00:00 [facility] Smoking Status Start Date Stop Date Source Ex-smoker 2022-01-18 00:00:00 2022-01-18 00:00:00 Universi ty of [facility] Medications Ordered Filled Start Stop Current Ordering Indication Dosage Frequency Signature Comments Components Source Medication Medication Date Date Medication? Clinician (SIG) Name Name proMETHazin Yes [id number] 25mg Take 1 Univers e 25 mg 5-05 tablet by ity of tablet 00:00: mouth [place] 00 every 6 Medical (six) Branch hours as needed for Nausea and Vomiting (N/V). Yes [id number] 1{tbl} Take 1 U nivers multivitami 5-05 tablet by ity of n ( 00:00: mouth [place] VITAMIN) 00 daily. Medical tablet Branch proMETHazin Yes [id number] 25mg Take 1 Univers e 25 mg 5-05 tablet by ity of tablet 00:00: mouth [place] 00 every 6 Medical (six) Branch hours as needed for Nausea and Vomiting (N/V). Yes [id number] 1{tbl} Take 1 U nivers multivitami 5-05 tablet by ity of n ( 00:00: mouth [place] VITAMIN) 00 daily. Medical tablet Branch proMETHazin Yes [id number] 25mg Take 1 Univers e 25 mg 5-05 tablet by ity of tablet 00:00: mouth [place] 00 every 6 Medical (six) Branch hours as needed for Nausea and Vomiting (N/V). Yes [id number] 1{tbl} Take 1 U nivers multivitami 5-05 tablet by ity of n ( 00:00: mouth [place] VITAMIN) 00 daily. Medical tablet Branch proMETHazin Yes [id number] 25mg Take 1 Univers e 25 mg 5-05 tablet by ity of tablet 00:00: mouth [place] 00 every 6 Medical (six) Branch hours as needed for Nausea and Vomiting (N/V). Yes [id number] 1{tbl} Take 1 U nivers multivitami 5-05 tablet by ity of n ( 00:00: mouth [place] VITAMIN) 00 daily. Medical tablet Branch proMETHazin Yes [id number] 25mg Take 1 Univers e 25 mg 5-05 tablet by ity of tablet 00:00: mouth [place] 00 every 6 Medical (six) Branch hours as needed for Nausea and Vomiting (N/V). Yes [id number] 1{tbl} Take 1 U nivers multivitami 5-05 tablet by ity of n ( 00:00: mouth [place] VITAMIN) 00 daily. Medical tablet Branch proMETHazin Yes [id number] 25mg Take 1 Univers e 25 mg 5-05 tablet by ity of tablet 00:00: mouth [place] 00 every 6 Medical (six) Branch hours as needed for Nausea and Vomiting (N/V). Yes [id number] 1{tbl} Take 1 U nivers multivitami 5-05 tablet by ity of n ( 00:00: mouth [place] VITAMIN) 00 daily. Medical tablet Branch proMETHazin 0 Yes [id number] 25mg Take 1 Univers e 25 mg 5-05 tablet by ity of tablet 00:00: mouth [place] 00 every 6 Medical (six) Branch hours as needed for Nausea and Vomiting (N/V). 2021-0 Yes [id number] 1{tbl} Take 1 U nivers multivitami 5-05 tablet by ity of n ( 00:00: mouth [place] VITAMIN) 00 daily. Medical tablet Branch Immunizations Ordered Immunization Filled Immunization Date Status Commen ts Source Name Name Influenza Virus 2020-02-29 Completed Universit y of Vaccine Quad .5 mL IM 00:00:00 [place] Medical 6+ MO Branch Influenza Virus 2020-02-29 Completed Universit y of Vaccine Quad .5 mL IM 00:00:00 [place] [facility] 6+ MO Branch Influenza Virus 2020-02-29 Completed Universit y of Vaccine Quad .5 mL IM 00:00:00 [place] [facility] 6+ MO Branch Influenza Virus 2020-02-29 Completed Universit y of Vaccine Quad .5 mL IM 00:00:00 [place] [facility] 6+ MO Branch Influenza Virus 2020-02-29 Completed Universit y of Vaccine Quad .5 mL IM 00:00:00 [place] [facility] 6+ MO Branch Influenza Virus 2020-02-29 Completed Universit y of Vaccine Quad .5 mL IM 00:00:00 [place] [facility] 6+ MO Branch Influenza Virus 2020-02-29 Completed Universit y of Vaccine Quad .5 mL IM 00:00:00 [place] [facility] 6+ MO Branch TDAP 2019-11-29 Completed University of 00:00:00 [facility] TDAP 2019-11-29 Completed University of 00:00:00 [facility] TDAP 2019-11-29 Completed University of 00:00:00 [facility] TDAP 2019-11-29 Completed University of 00:00:00 [facility] TDAP 2019-11-29 Completed University of 00:00:00 [facility] TDAP 2019-11-29 Completed University of 00:00:00 [facility] TDAP 2019-11-29 Completed University of 00:00:00 [facility] Influenza Virus 2019-06-08 Completed Universit y of Vaccine Quad .5 mL IM 00:00:00 [place] [facility] 6+ MO Branch Influenza Virus 2019-06-08 Completed Universit y of Vaccine Quad .5 mL IM 00:00:00 [place] [facility] 6+ MO Branch Influenza Virus 2019-06-08 Completed Universit y of Vaccine Quad .5 mL IM 00:00:00 [place] [facility] 6+ MO Branch Influenza Virus 2019-06-08 Completed Universit y of Vaccine Quad .5 mL IM 00:00:00 [place] [facility] 6+ MO Branch Influenza Virus 2019-06-08 Completed Universit y of Vaccine Quad .5 mL IM 00:00:00 [place] [facility] 6+ MO Branch Influenza Virus 2019-06-08 Completed Universit y of Vaccine Quad .5 mL IM 00:00:00 [place] [facility] 6+ MO Branch Influenza Virus 2019-06-08 Completed Universit y of Vaccine Quad .5 mL IM 00:00:00 [place] [facility] 6+ MO Branch TDAP 2016-09-05 Completed University of 00:00:00 [facility] TDAP 2016-09-05 Completed University of 00:00:00 [facility] TDAP 2016-09-05 Completed University of 00:00:00 [facility] TDAP 2016-09-05 Completed University of 00:00:00 [facility] TDAP 2016-09-05 Completed University of 00:00:00 [facility] TDAP 2016-09-05 Completed University of 00:00:00 [facility] TDAP 2016-09-05 Completed University of 00:00:00 [facility] Meningococcal 2008-11-10 Completed University of Polysaccharide 00:00:00 [facility] antolin (groups A, C, Y and Branc h W-135) conjugate vaccine (MCV4P) Proquad 2008-11-10 Completed University of (MMR/VARICELLA) 00:00:00 [facility] Meningococcal 2008-11-10 Completed University of Polysaccharide 00:00:00 [facility] antolin (groups A, C, Y and Branc h W-135) conjugate vaccine (MCV4P) Proquad 2008-11-10 Completed University of (MMR/VARICELLA) 00:00:00 [facility] Meningococcal 2008-11-10 Completed University of Polysaccharide 00:00:00 [facility] antolin (groups A, C, Y and Branc h W-135) conjugate vaccine (MCV4P) Proad 2008-11-10 Completed University of (MMR/VARICELLA) 00:00:00 [facility] Meningococcal 2008-11-10 Completed University of Polysaccharide 00:00:00 [facility] antolin (groups A, C, Y and Branc h W-135) conjugate vaccine (MCV4P) Proquad 2008-11-10 Completed University of (MMR/VARICELLA) 00:00:00 [facility] Meningococcal 2008-11-10 Completed University of Polysaccharide 00:00:00 [facility] antolin (groups A, C, Y and Branc h W-135) conjugate vaccine (MCV4P) Proquad 2008-11-10 Completed University of (MMR/VARICELLA) 00:00:00 [facility] Meningococcal 2008-11-10 Completed University of Polysaccharide 00:00:00 [facility] antolin (groups A, C, Y and Branc h W-135) conjugate vaccine (MCV4P) Proquad 2008-11-10 Completed University of (MMR/VARICELLA) 00:00:00 [facility] Meningococcal 2008-11-10 Completed University of Polysaccharide 00:00:[address] [facility] (groups A, C, Y and Branc h W-135) conjugate vaccine (MCV4P) Proquad 2008-11-10 Completed University of (MMR/VARICELLA) 00:00:00 [facility] Proquad 2006-03-24 Completed University of (MMR/VARICELLA) 00:00:00 [facility] Proquad 2006-03-24 Completed University of (MMR/VARICELLA) 00:00:00 [facility] Proquad 2006-03-24 Completed University of (MMR/VARICELLA) 00:00:00 [facility] Proquad 2006-03-24 Completed University of (MMR/VARICELLA) 00:00:00 [facility] Proquad 2006-03-24 Completed University of (MMR/VARICELLA) 00:00:00 [facility] Proquad 2006-03-24 Completed University of (MMR/VARICELLA) 00:00:00 [facility] Proquad 2006-03-24 Completed University of (MMR/VARICELLA) 00:00:00 [facility] Polio (IPV/OPV) 2002-03-08 Completed Universit y of 00:00:00 [facility] Polio (IPV/OPV) 2002-03-08 Completed Universit y of 00:00:00 [facility] Polio (IPV/OPV) 2002-03-08 Completed Universit y of 00:00:00 [facility] Polio (IPV/OPV) 2002-03-08 Completed Universit y of 00:00:00 [facility] Polio (IPV/OPV) 2002-03-08 Completed Universit y of 00:00:00 [facility] Polio (IPV/OPV) 2002-03-08 Completed Universit y of 00:00:00 [facility] Polio (IPV/OPV) 2002-03-08 Completed Universit y of 00:00:00 [facility] Polio (IPV/OPV) 1998-06-08 Completed Universit y of 00:00:00 [facility] Polio (IPV/OPV) 1998-06-08 Completed Universit y of 00:00:00 [facility] Polio (IPV/OPV) 1998-06-08 Completed Universit y of 00:00:00 [facility] Polio (IPV/OPV) 1998-06-08 Completed Universit y of 00:00:00 [facility] Polio (IPV/OPV) 1998-06-08 Completed Universit y of 00:00:00 [facility] Polio (IPV/OPV) 1998-06-08 Completed Universit y of 00:00:00 [facility] Polio (IPV/OPV) 1998-06-08 Completed Universit y of 00:00:00 [facility] Hep B, Adol or Pedi 1997-04-05 Completed Unive rsity of Dosage 00:00:00 [facility] Meningococcal 1997-04-05 Completed University of Polysaccharide 00:00:00 [facility] antolin (groups A, C, Y and Branc h W-135) conjugate vaccine (MCV4P) Proquad 1997-04-05 Completed University of (MMR/VARICELLA) 00:00:00 [facility] Hep B, Adol or Pedi 1997-04-05 Completed Unive rsity of Dosage 00:00:00 [facility] Meningococcal 1997-04-05 Completed University of Polysaccharide 00:00:00 [facility] antolin (groups A, C, Y and Branc h W-135) conjugate vaccine (MCV4P) Proquad 1997-04-05 Completed University of (MMR/VARICELLA) 00:00:00 [facility] Hep B, Adol or Pedi 1997-04-05 Completed Unive rsity of Dosage 00:00:00 [facility] Meningococcal 1997-04-05 Completed University of Polysaccharide 00:00:00 [facility] antolin (groups A, C, Y and Branc h W-135) conjugate vaccine (MCV4P) Proquad 1997-04-05 Completed University of (MMR/VARICELLA) 00:00:00 [facility] Hep B, Adol or Pedi 1997-04-05 Completed Unive rsity of Dosage 00:00:00 [facility] Meningococcal 1997-04-05 Completed University of Polysaccharide 00:00:00 [facility] antolin (groups A, C, Y and Branc h W-135) conjugate vaccine (MCV4P) Proquad 1997-04-05 Completed University of (MMR/VARICELLA) 00:00:00 [facility] Hep B, Adol or Pedi 1997-04-05 Completed Unive rsity of Dosage 00:00:00 [facility] Meningococcal 1997-04-05 Completed University of Polysaccharide 00:00:00 [facility] antolin (groups A, C, Y and Branc h W-135) conjugate vaccine (MCV4P) Proquad 1997-04-05 Completed University of (MMR/VARICELLA) 00:00:00 [facility] Hep B, Adol or Pedi 1997-04-05 Completed Unive rsity of Dosage 00:00:00 [facility] Meningococcal 1997-04-05 Completed University of Polysaccharide 00:00:00 [facility] antolin (groups A, C, Y and Branc h W-135) conjugate vaccine (MCV4P) Proquad 1997-04-05 Completed University of (MMR/VARICELLA) 00:00:00 [facility] Hep B, Adol or Pedi 1997-04-05 Completed Unive rsity of Dosage 00:00:00 [facility] Meningococcal 1997-04-05 Completed University of Polysaccharide 00:00:00 [facility] antolin (groups A, C, Y and Branc h W-135) conjugate vaccine (MCV4P) Proquad 1997-04-05 Completed University of (MMR/VARICELLA) 00:00:00 [facility] HIB 3 Dose Schedule 1996 Completed Unive rsity of 00:00:00 [place] [facility] Polio (IPV/OPV) 1996 Completed Universit y of 00:00:00 [place] [facility] HIB 3 Dose Schedule 1996 Completed Unive rsity of 00:00:00 [place] [facility] Polio (IPV/OPV) 1996 Completed Universit y of 00:00:00 [place] [facility] HIB 3 Dose Schedule 1996 Completed Unive rsity of 00:00:00 [place] [facility] Polio (IPV/OPV) 1996 Completed Universit y of 00:00:00 [place] [facility] HIB 3 Dose Schedule 1996 Completed Unive rsity of 00:00:00 [place] [facility] Polio (IPV/OPV) 1996 Completed Universit y of 00:00:00 [place] [facility] HIB 3 Dose Schedule 1996 Completed Unive rsity of 00:00:00 [place] [facility] Polio (IPV/OPV) 1996 Completed Universit y of 00:00:00 [place] [facility] HIB 3 Dose Schedule 1996 Completed Unive rsity of 00:00:00 [place] [facility] Polio (IPV/OPV) 1996 Completed Universit y of 00:00:00 [place] [facility] HIB 3 Dose Schedule 1996 Completed Unive rsity of 00:00:00 [place] [facility] Polio (IPV/OPV) 1996 Completed Universit y of 00:00:00 [place] [facility] HIB 3 Dose Schedule 1996 Completed Unive rsity of 00:00:00 [place] [facility] Polio (IPV/OPV) 1996 Completed Universit y of 00:00:00 [place] [facility] HIB 3 Dose Schedule 1996 Completed Unive rsity of 00:00:00 [place] [facility] Polio (IPV/OPV) 1996 Completed Universit y of 00:00:00 [place] [facility] HIB 3 Dose Schedule 1996 Completed Unive rsity of 00:00:00 [place] [facility] Polio (IPV/OPV) 1996 Completed Universit y of 00:00:00 [place] [facility] HIB 3 Dose Schedule 1996 Completed Unive rsity of 00:00:00 [place] [facility] Polio (IPV/OPV) 1996 Completed Universit y of 00:00:00 [place] [facility] HIB 3 Dose Schedule 1996 Completed Unive rsity of 00:00:00 [place] [facility] Polio (IPV/OPV) 1996 Completed Universit y of 00:00:00 [place] [facility] HIB 3 Dose Schedule 1996 Completed Unive rsity of 00:00:00 [place] [facility] Polio (IPV/OPV) 1996 Completed Universit y of 00:00:00 [place] [facility] HIB 3 Dose Schedule 1996 Completed Unive rsity of 00:00:00 [place] [facility] Polio (IPV/OPV) 1996 Completed Universit y of 00:00:00 [place] [facility] Hep B, Adol or Pedi 1996 Completed Unive rsity of Dosage 00:00:00 [facility] [place] [facility] Branch Polio (IPV/OPV) 1996 Completed Universit y of 00:00:00 [place] [facility] Hep B, Adol or Pedi 1996 Completed Unive rsity of Dosage 00:00:00 [place] [facility] Polio (IPV/OPV) 1996 Completed Universit y of 00:00:00 [place] [facility] Hep B, Adol or Pedi 1996 Completed Unive rsity of Dosage 00:00:00 [place] [facility] Polio (IPV/OPV) 1996 Completed Universit y of 00:00:00 [place] [facility] Hep B, Adol or Pedi 1996 Completed Unive rsity of Dosage 00:00:00 [place] [facility] Polio (IPV/OPV) 1996 Completed Universit y of 00:00:00 [place] [facility] Hep B, Adol or Pedi 1996 Completed Unive rsity of Dosage 00:00:00 [place] [facility] Polio (IPV/OPV) 1996 Completed Universit y of 00:00:00 [place] [facility] Hep B, Adol or Pedi 1996 Completed Unive rsity of Dosage 00:00:00 [place] [facility] Polio (IPV/OPV) 1996 Completed Universit y of 00:00:00 [place] [facility] Hep B, Adol or Pedi 1996 Completed Unive rsity of Dosage 00:00:00 [facility] Polio (IPV/OPV) 1996 Completed Universit y of 00:00:00 [place] [facility] Hep B, Adol or Pedi 1996 Completed Unive rsity of Dosage 00:00:00 [facility] [place] [facility] Branch Hep B, Adol or Pedi 1996 Completed Unive rsity of Dosage 00:00:00 [place] [facility] Hep B, Adol or Pedi 1996 Completed Unive rsity of Dosage 00:00:00 [place] [facility] Hep B, Adol or Pedi 1996 Completed Unive rsity of Dosage 00:00:00 [place] [facility] Hep B, Adol or Pedi 1996 Completed Unive rsity of Dosage 00:00:00 [place] [facility] Hep B, Adol or Pedi 1996 Completed Unive rsity of Dosage 00:00:00 [place] [facility] Hep B, Adol or Pedi 1996 Completed Unive rsity of Dosage 00:00:00 [facility] Vital Signs Vital Name Observation Time Observation Value Comments Source Systolic blood 2022-01-18 13:38:00 116 mm[Hg] Univer sity of pressure [facility] Diastolic blood 2022-01-18 13:38:00 63 mm[Hg] Unive rsity of pressure [facility] Heart rate 2022-01-18 13:38:00 86 /min [facility] Body temperature 2022-01-18 13:38:00 36.5 [facility] Res[facility] rate 2022-01-18 13:38:00 18 /min [facility] Body height 2022-01-18 13:38:00 162.6 cm [facility] Body weight 2022-01-18 13:38:00 83.915 kg [facility] BMI 2022-01-18 13:38:00 31.76 kg/m2 [facility] Systolic blood 2021-10-26 15:57:00 100 mm[Hg] Univer sity of pressure [facility] Diastolic blood 2021-10-26 15:57:00 59 mm[Hg] Unive rsity of pressure [facility] Heart rate 2021-10-26 15:57:00 82 /min [facility] Body temperature 2021-10-26 15:57:00 36.33 Sosa [facility] Respiratory rate 2021-10-26 15:57:00 16 /min [facility] Body height 2021-10-26 15:57:00 162.6 cm [facility] Body weight 2021-10-26 15:57:00 80.831 kg [facility] BMI 2021-10-26 15:57:00 30.59 kg/m2 [facility] Procedures Procedure Date / Time Performed Performing Clinician Sourc e POCT URINALYSIS 2021-10-26 15:58:00 Rosalva Ortega [facility] Encounters Start End Encounter Admission Attending Care Care Encounter Source Date/Time Date/Time Type Type Clinicians Facility Department ID 2022-02-11 2022-02-11 Outpatient R AKINSIPE, [facility] [id number] Univers 08:00:00 08:00:00 ROSALVA [id number] ity o f [facility] 2022-02-07 2022-02-07 Outpatient R AKINSIPE, [facility] [id number] Univers 13:15:00 13:15:00 ROSALVA [id number] sofyy o f [facility] 2022-02-07 2022-02-07 Outpatient P [facility] [id number] Univers 10:00[facility]22-01-21 Outpatient R [facility] [id number] Univers 08:00:00 08:00:00 [id number] [facility]-21 2022-01-21 Outpatient R FONG, [facility] [id number] Univers 08:00:00 08:00:00 ROSHUNDA ity o [facility] 2022-01-18 2022-01-18 Outpatient R AKINSIPE, [facility] [id number] Univers 08:00:00 08:56:37 ROSALVA goetzy o [facility] 2022-01-18 2022-01-18 Routine Akinsipe, [facility] [id number] Univers 08:00:00 08:56:37 Rosalva Bustillo [employer] [id number] ity of Visit REGIONAL [id number] [place] MATERNAL [id number] [facility] & CHILD [address] [place] [address] 2022-01-18 2022-01-18 [facility] [id number] Univers 08:00:00 08:00:00 ROSALVA [id number] ity o f [facility] 2022-01-18 2022-01-18 Letter [facility] [id number] Univers 00:00:00 00:00:00 (Out) Rosalva Bustillo [employer]ING OBSERVER [id number] ity of REGIONAL [id number] [place] MATERNAL [id number] [facility] & CHILD [address] [place] [address] 2022-01-16 2022-01-16 [facility] [id number] Univers 00:00:00 00:00:00 Evelyn R ELECTRICAL PROSPECTING OBSERVER 350.1.13.10 ity of REGIONAL 4.2.7.2.686 [place] as MATERNAL [id number] [facility] & [address] 2022-01-10 2022-01-10 Cw Operator [facility] Room [facility] 1.2. [id number] [id number] Univers 10:00:00 11:20:11 Visit Elvin Pascual ELECTRICAL PROSPECTING OBSERVER 350.1.13.10 ity of [place] REGIONAL 4.2.7.2.686 [place] MATERNAL [id number] [facility] & CHILD [address] [place] [address] 2022-01-10 2022-01-10 Outpatient P ABI [facility] [id number] Univers 10:15:00 10:15:00 CINTHYA [id number] ity o f [facility] 2022-01-10 2022-01-10 Outpatient P MOISES [facility] [id number] Univers 10:00:00 10:00:00 VARGAS ity of [facility] 2022-01-10 2022-01-10 [facility] [id number] Univers 00:00:00 00:00:00 Rosharrisonnda R ELECTRICAL PROSPECTING OBSERVER 350.1.13.10 ity of REGIONAL 4.2.7.2.686 [place] as MATERNAL [id number] [facility] & CHILD 107 [facility] [place]22-01-08 2022-01-08 Telephone [facility] [id number] Univers 00:00:00 00:00:00 Cinthya A ELECTRICAL PROSPECTING OBSERVER 350.1.13.10 ity of REGIONAL 4.2.7.2.686 [place] as MATERNAL [id number] [facility] & [facility] 125 [facility] 2021-12-24 2021-12-24 Outpatient R AKINSIPE, [facility] [id number] Univers 08:00:00 08:00:00 ROSALVA [id number] ity o [facility] 2021-12-24 2021-12-24 Outpatient R AKINSIPE, [facility] [id number] Univers 08:00:00 08:00:00 ROSALVA ity o [facility] 2021-12-21 2021-12-21 Outpatient R AKINSIPE, [facility] [id number] Univers 16:00:00 16:00:00 ROSALVA [id number] ity o [facility] 2021-12-21 2021-12-21 Outpatient R AKINSIPE, [facility] [id number] Univers 16:00:00 16:00:00 ROSALVA ity o f [facility] 2021-11-23 2021-11-23 Outpatient R STEFANI, [facility] [id number] Univers 10:45:00 10:45:00 ROSHUNDA ity o [facility] 2021-10-26 2021-10-26 [facility]ine [facility] [id number] Univers 10:15:00 11:09:15 Rosharrisonnda R ELECTRICAL PROSPECTING OBSERVER 350.1.13.10 ity of Visit REGIONAL 4.2.7.2.686 [place] as MATERNAL [id number] Med ical & CHILD [address] [place] [address] Results Test Description Test Time Test Comments Results Result Comments Source POCT URINALYSIS W SPECIFIC GRAVITY 2021-10-26 15:58:00 Test Item Value Reference Range Interpretation Comme nts POCT U SP GRAV (test code = 3255) . 1.005-1.025 POCT PH U (test code = 3254) . 5-8 POCT U LEUK EST (test code = 3263) . Negative - Negative POCT U NIT (test code = 3262) . Negative - Negative POCT U PROT (test code = 3259) trace Negative - Negative POCT U GLU (test code = 3256) neg Negative - Negative POCT U KETONE (test code = 3258) . Negative - Negative POCT U UROBILI (test code = 3260) . 0.2-1 POCT U BILI (test code = 3261) . Negative - Negative POCT U BLD (test code = 3257) . Negative - Negative POCT U COLOR (test code = 3266) POCT U APPEAR (test code = 3267) [facility]
--- NOTE | 2022-01-23 19:37 | ER ---
Nurse's Notes [facility] Name: Aida Rodriguez Age: 26 yrs Sex: Female : 1995 Arrival Date: 01/23/2022 Time: 18:55 Bed Waiting Private MD: Diagnosis: ED Course: 01/23 18:55 Patient arrived in ED. mr 18:58 Maurice Shell PA is PHCP. cp 18:58 Noman Crowley MD is Attending Physician. cp 19:02 PHCP role handed off by Maurice Shell PA kb 19:02 Mary Doyle FNP-C is PHCP. kb 19:16 Patient's name was called from ER lobby. No response. hb 19:35 Patient's name was called from ER lobby. No response. Unable to locate patient. Will hb disposition as left without being seen by a provider. Administered Medications: No medications were administered Outcome: 19:36 Patient left the ED. hb Signatures: Mary Doyle FNP-C FNP-Ckb Rivera, Mary mr Maurice Shell PA PA cp Baxter, Heather, RN RN hb
== END 2022-01-23 19:36 | disposition left against medical advice (07) ==
LOC: ER 18:45
DX: Z02.9 Encounter for administrative examinations, unspecified (principal)

== ENCOUNTER 2022-05-07 03:54 | Emergency (ER) | payer OTHER ==
--- OUTSIDE RECORDS SUMMARY | 2022-05-07 04:10 | XMS REPORT | Continuity of Care Document ---
:1995 Author Organization [facility] t Address [address] [address] [place] [address] Care Team Providers Name Role Phone Christina Shah Primary Care Physician JANETTE MORRISON Attending Clinician Unavailable Michael Francis MD Attending Clinician Vic TO, Farrah Merritt Attending Clinician FARRAH HO Attending Clinician Unavailable Leticia Bardales MD Attending Clinician Jackie TO, Kary Thomason Attending Clinician [phone] Doctor Unassigned, [place] Attending Clinician Unavailable ROSEANNE GORDON Attending Clinician Unavailable ALONDRA FLOWERS Attending Clinician Unavailable Jae Denney Temp Attending Clinician Unavailable Alondra Flowers CNM Attending Clinician Roseanne Lomeli Attending Clinician [phone] Ultrasound, [facility] Attending Clinician Unavailable Maurice Pichardo DO Attending Clinician Gonzales Reed Attending Clinician Risk, Sln-Xsddu-If/High Attending Clinician Unavailable Holly Jones Attending Clinician HOLLY MRAIE Attending Clinician Unavailable RAVI GATUHIER Attending Clinician Unavailable Ravi Gauthier MD Attending Clinician Herminia Davis MD Attending Clinician [phone] HERMINIA DAVIS Attending Clinician Unavailable GONZALES GONZALEZ Attending Clinician Unavailable Jamie Mancia MD, Rajesh Attending Clinician [phone] RAJESH DUVALL Attending Clinician Unavailable 1, [facility] Attending Clinician Unavailable Lias Weinstein MD Attending Clinician LISA WEINSTEIN Attending Clinician Unavailable LISA WEINSTEIN Attending Clinician Unavailable CINTHYA ALEX Attending Clinician Unavailable Sergei LOWERY, Cinthya Toure Attending Clinician 2, [facility] Attending Clinician Unavailable 2, [facility] Attending Clinician Unavailable Evelyn Celestin Attending Clinician IMTIAZ ALVARADO Attending Clinician Unavailable Imtiaz Alvarado MD Attending Clinician EVELYN KO Attending Clinician Unavailable SYDNIE AGEE Attending Clinician Unavailable JULI LEWIS Attending Clinician Unavailable Regina GUEVARA, Barbara Gaston Attending Clinician Unavailable KIRSTIN VILLALOBOS Attending Clinician Unavailable Provider, [facility] Attending Clinician Unavailable Kirstin Mcgraw Attending Clinician Maxime Weinstein DO Attending Clinician Soni Ignacio Attending Clinician SONI CORDERO Attending Clinician Unavailable Lab, [facility] Attending Clinician Unavailable ZINA COLEY Attending Clinician Unavailable Visit, [facility] Attending Clinician Unavailable Misbah Louie MD Attending Clinician Dustin Enriquez MD Attending Clinician Eliana Soto Attending Clinician Unavailable Allen Saeed MD Attending Clinician MERA WIGGINS Attending Clinician Unavailable Mera Wiggins MD Attending Clinician DUSTIN ENRIQUEZ Admitting Clinician Unavailable Farrah Ho MD Admitting Clinician FARRAH HO Admitting Clinician Unavailable RAVI GAUTHIER Admitting Clinician Unavailable Ravi Gauthier MD Admitting Clinician Dustin Enriquez MD Admitting Clinician MERA WIGGINS Admitting Clinician Unavailable Payers Payer Name Policy Type Policy Number Effective Date Expiration Date Renee OLIVASS [id number] 2019 HEALTH 00:00:00 [place] [id number] 2019 00:00:00 Problems Condition Condition Condition Status Onset Resolution Last Treating Co mments Source Name Details Category Date Date Treatment Clinician Date H. H. Disease Active 2021-05 Univers influenzae influenzae 1-22 [place] [facility] Disease Active 2021-05 Univers (vaginal (vaginal 1-22 ity of 00:00: [place] after after 00 Medical ) ) Bran ch Single Single Disease Active 2021-05 Univers live live 1-22 it y of 00:00: [address] Acute Acute Disease Active 2021-05 Univers blood loss blood loss 1-22 it y of anemia anemia 00:00: [place] [facility] 38 weeks 38 weeks Disease Active 2021-05 Unive rs gestation gestation 1-20 ity of of of 00:00: [place] 00 [facility] Intrauteri Intrauteri Disease Active 2021-05 U nivers ne growth ne growth 1-10 [place] of restrictio restrict[place] (IUGR[place] (IUGR) 00 Medica l affecting affecting Bran ch care of care of mother, mother, third third trimester, trimester, single single gestation gestation History of History of Disease Active 2021-05 U nivers herpes herpes 1-10 it[place] of genitalis genitalis 00:[place] 00 [facility] 36 weeks 36 weeks Disease Active 2021-05 Unive rs gestation gestation 1-08 ity of of of 00:00: [place] 00 [facility] Spotting Spotting Disease Active 2021-05 Unive rs affecting affecting 1-08 [place] of [place] third in third 00 Medica l trimester trimester Bran ch BV BV Disease Active 2021-05 Univers (bacterial (bacterial 1-08 it y of vaginosis) vaginosis) [place]: [place] [facility] Obesity Obesity Disease Active 2021-05 Univers (BMI (BMI 1-08 ity of 30-39.9) 30-39.9) 00:00: [place] [facility] Disease Active Uni vers affected affected 9-15 ity of by by 00:00: [place] growth growth 00 Medical restrictio restrictio Br anch n n 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 pending marva Multiparit Multiparit Disease Active U nivers y y 09-27 ity of 00:00: [place] [facility] History of History of Disease Active Overview : Univers 09-27 Formattin ity of section section 00:00: g of this [place] note Medical might be Branch different from the original. Due to herpes outbreak , primary c section History of History of Disease Active Overview : Univers 05 Formattin ity o f delivery delivery 00:00: g of this [place] 00 note Medical might be Branch different from the original. x1 [id number] SPROM baby num 2, not intereste d in [place] Nausea and Nausea and Disease Active U nivers vomiting vomiting 5-05 ity of in in 00:00: [place] 00 [facility] antolin Branch Obesity in Obesity in Disease Active U nivers 5-05 ity of 00:: [place] [facility] Vaginal Vaginal Disease Active Univers discharge discharge -19 ity of 00:: [place] 00 Medical Branch BMI BMI Disease Active Univers 30.0-30.9, 30.0-30.9, 1-19 it y of adult adult 00:00: [address] Generalize Generalize Disease Active U nivers d anxiety d anxiety 6-11 ity of disorder disorder 00:00: [address] Herpes Herpes Disease Active Overview: Univer s infection infection 4-29 Formattin i ty of in in 00:00: g of this [place] 00 note [facility] might be Branch different from the original. Suppressi on at 36 weeks Closed Closed Disease Active Univers displaced displaced 4-25 ity of fracture fracture 00:00: [place] of fifth of fifth 00 Medica l metatarsal metatarsal Br anch bone bone Supervisio Supervisio Disease Active U nivers n of high n of high 4-13 ity of risk risk 00:00: [place] , , 00 Me dical antepartum antepartum Br anch BV BV Disease Active 2015-05 Univers (bacterial (bacterial 2-18 it y of vaginosis) vaginosis) [place] [facility] Family Family Disease Active 2015-05 Univers history of history of 2-15 it y of breast breast 00:00: [place] cancer in cancer in 00 [facility] mother mother Branch False False Disease Active [...] Active Univers ALLERGIE Class ity of S [facility] Social History Social Habit Start Date Stop Date Quantity Comments Source ASSERTION 2021-08-05 [facility] 00:00:00 [facility] Exposure to 2022-04-04 2022-04-14 Not sure [facility] SARS-CoV-2 00:00:00 07:23:00 [facility] (event) [place] Alcohol intake 2022-04-14 2022-04-14 0 /d [facility] 00:00:00 00:00:00 [facility] Tobacco use and 2022-04-14 2022-04-14 Smokeless tobacco Un iversity of exposure 00:00:00 00:00:00 non-user [facility] History of 2015-09-26 Passive smoker University of tobacco use 00:00:00 [facility] Sex [birth year] At [birth year] Universit y of 00:00:00 00:00:00 [facility] Smoking Status Start Date Stop Date Source Ex-smoker 2022-04-14 00:00:00 2022-04-14 00:00:00 [facility] [place] Medications Ordered Filled Start Stop Current Ordering Indication Dosage Frequency Signature Comments Components Source Medication Medication Date Date Medication? Clinician (SIG) Name Name 2021-05 Yes [id number] 1{tbl} Take 1 Univers [id number] 1-22 tablet by ity of fum-folic 00:00[place] 00 the Medical 27 mg iron- morning. Bran ch 1 mg folic tablet docusate 2021-05 Yes [id number] 200mg Take 2 U nivers 100 mg 1-22 capsules ity of capsule 00:00: by mouth [place] 00 once daily Medical as needed Branch for Constipati on. ferrous 2021-05 Yes [id number] 325mg Take 1 Un darlene sulfate 325 1-22 tablet by ity of mg (65 mg 00:00: [place] iron[place] 00 the Medical tablet morning Branch and 1 tablet in the evening. ibuprofen 2021-05 Yes [id number] 600mg Take 1 Univers 600 mg 1-22 tablet by ity of tablet 00:00: mouth [place] 00 every 6 Medical (six) Branch hours as needed (Pain). Take with food or milk. 2021-05 Yes [id number] 1{tbl} Take 1 Univers [id number] 1-22 tablet by ity of fum-folic 00:00: [place] () 00 the Medical 27 mg iron- morning. Bran ch 1 mg folic tablet docusate 2021-05 Yes [id number] 200mg Take 2 U nivers 100 mg 1-22 capsules ity of capsule 00:00: by mouth [place] 00 once daily Medical as needed Branch for Constipati on. ferrous 2021-05 Yes [id number] 325mg Take 1 Un darlene sulfate 325 1-22 tablet by ity of mg (65 mg 00:00: [place] iron[place] 00 the Medical tablet morning Branch and 1 tablet in the evening. ibuprofen 2021-05 Yes [id number] 600mg Take 1 Univers 600 mg 1-22 tablet by ity of tablet 00:00: mouth [place] 00 every 6 Medical (six) Branch hours as needed (Pain). Take with food or milk. 2021-05 Yes [id number] 1{tbl} Take 1 Univers [id number] 1-22 tablet by ity of fum-folic 00:00: mouth in [facility] s () 00 the Medical 27 mg iron- morning. Bran ch 1 mg folic tablet docusate 2021-05 Yes [id number] 200mg Take 2 U nivers 100 mg 1-22 capsules ity of capsule 00:00: by mouth [place] 00 once daily Medical as needed Branch for Constipati on. ferrous 2021-05 Yes [id number] 325mg Take 1 Un darlene sulfate 325 1-22 tablet by ity of mg (65 mg 00:00: mouth in [facility] s iron) 00 the Medical tablet morning Branch and 1 tablet in the evening. ibuprofen 2021-05 Yes [id number] 600mg Take 1 Univers 600 mg 1-22 tablet by ity of tablet 00:00: mouth [place] 00 every 6 Medical (six) Branch hours as needed (Pain). Take with food or milk. oseltamivir 2021-05- Yes [id number] 75mg Take 1 Univers (TAMIFLU) 06-16 capsule by ity of 75 mg 00:00: 05:59 mouth in [place] capsule 00 :00 the Medical morning Branch and 1 capsule in the evening. Do all this for 5 days. oseltamivir 2021-05- Yes [id number] 75mg Take 1 Univers (TAMIFLU) 06-16- capsule by ity of 75 mg 00:00: 05:59 mouth in [place] capsule 00 :00 the Medical morning Branch and 1 capsule in the evening. Do all this for 5 days. ibuprofen 2021-05- No 600mg 600 mg, Uni vers (IBU) 06-15- Oral, Q6H, ity of tablet 600 18:00: 15:49 First dose [place] mg 00 :25 on [facility] 04/15/22 Branch at 1200, Until Discontinu ed, Routine ibuprofen 2021-05- No 600mg 600 mg, Uni vers (IBU) 06-15- Oral, Q6H, ity of tablet 600 18:00: 15:49 First dose [place] mg 00 :25 on [facility] 04/15/22 Branch at 1200, Until Discontinu ed, Routine rho(D) 2021-05 Yes 300ug 300 mcg, [facility] Intramuscu ity of globulin 15:49: lar, ONCE, [place] (RHOGAM) 27 For 1 Medical syringe 300 dose, Branch mcg Conditiona l, Routine rho(D) 2021-05 Yes 300ug 300 mcg, [facility] s immune 06-15 Intramuscu ity of globulin 15:49: lar, ONCE, [place] (RHOGAM) 27 For 1 Medical syringe 300 dose, Branch mcg Conditiona l, Routine ibuprofen 2021-05 Yes 600mg 600 mg, [facility] ers (IBU) 06-15 Oral, ity of tablet 600 15:49: Q6HPRN, [place] mg 23 Starting Medical on [facility] Branch 04/15/22 at 0949, Until Discontinu ed, Routine, Pain (scale 4-6) acetaminoph 2021-05 Yes 650mg 650 mg, Un darlene en 06-15 Oral, ity of (TYLENOL) 15:49: Q6HPRN, [place] tablet 650 23 Starting Medic al mg on [facility] 04/15/22 at 0949, Until Discontinu ed, Routine, Pain (scale 1-3) diphenhydrA 2021-05 Yes 25mg 25 mg, [facility] ers MINE 06-15 Oral, ity of (BENADRYL) 15:49: Q6HPRN, [place] tablet 25 23 Starting Medica l mg on [facility] 04/15/22 at 0949, Until Discontinu ed, Routine, Sleep, Itching ondansetron 2021-05 Yes 4mg 4 mg, Slow Univers (ZOFRAN 06-15 IV Push, ity of (PF)) 15:49: Q8HPRN, [place] injection 4 23 Starting Medi antolin mg on [facility] Branch 04/15/22 at 0949, Until Discontinu ed, Routine, Nausea and Vomiting (N/V) simethicone 2021-05 Yes 160mg 160 mg, Un darlene (GAS RELIEF 06-15 Oral, ity of (SIMETHICON 15:49: PC+HSPRN, [place] E)) 23 Starting Medical chewable on Mon Branch tablet 160 04/15/22 mg at 0949, Until Discontinu ed, Routine, Gas docusate 2021-05 Yes 200mg 200 mg, Unive rs (COLACE) 06-15 Oral, ity of capsule 200 15:49: QDAILYPRN, [place] mg 23 Starting Medical on Fri Branch 04/15/22 at 0949, Until Discontinu ed, Routine, Constipati on magnesium 2021-05 Yes 30mL 30 mL, Univer s hydroxide 06-15 Oral, ity of (MILK OF 15:49: QDAILYPRN, [place] MAGNESIA) 23 Starting Medica l 400 mg/5 mL on Fri suspension 04/15/22 30 mL at 0949, Until Discontinu ed, Routine, Constipati on ibuprofen 2021-05 Yes 600mg 600 mg, Univ ers (IBU) 06-15 Oral, ity of tablet 600 15:49: Q6HPRN, [place] mg 23 Starting Medical on Fri04/15/22 at 0949, Until Discontinu ed, Routine, Pain (scale 4-6) acetaminoph 2021-05 Yes 650mg 650 mg, Un darlene en 06-15 Oral, ity of (TYLENOL) 15:49: Q6HPRN, [place] tablet 650 23 Starting Medic al mg on Fri04/15/22 at 0949, Until Discontinu ed, Routine, Pain (scale 1-3) diphenhydrA 2021-05 Yes 25mg 25 mg, Univ ers MINE 06-15 Oral, ity of (BENADRYL) 15:49: Q6HPRN, [place] tablet 25 23 Starting Medica l mg on Fri04/15/22 at 0949, Until Discontinu ed, Routine, Sleep, Itching ondansetron 2021-05 Yes 4mg 4 mg, Slow Univers (ZOFRAN 06-15 IV Push, ity of (PF)) 15:49: Q8HPRN, [place] injection 4 23 Starting Medi antolin mg on Fri Branch 04/15/22 at 0949, Until Discontinu ed, Routine, Nausea and Vomiting (N/V) simethicone 2021-05 Yes 160mg 160 mg, Un darlene (GAS RELIEF 06-15 Oral, ity of (SIMETHICON 15:49: PC+HSPRN, [place] E)) 23 Starting Medical chewable on Fri Branch tablet 160 04/15/22 mg at 0949, Until Discontinu ed, Routine, Gas docusate 2021-05 Yes 200mg 200 mg, Unive rs (COLACE) 06-15 Oral, ity of capsule 200 15:49: QDAILYPRN, [place] mg 23 Starting Medical on Fri Branch 04/15/22 at 0949, Until Discontinu ed, Routine, Constipati on magnesium 2021-05 Yes 30mL 30 mL, Univer s hydroxide 06-15 Oral, ity of (MILK OF 15:49: QDAILYPRN, [place] MAGNESIA) 23 Starting Medica l 400 mg/5 mL on Fri Branch suspension 04/15/22 30 mL at 0949, Until Discontinu ed, Routine, Constipati on benzocaine- 2021-05 Yes Topical, Un darlene menthol 06-15 PRN, ity of (DERMOPLAST 15:49: [place] 20-0.5 % 22 on Fri Medical topical 04/15/22 Branch spray at 0949, Until Discontinu ed, Routine, Perineum discomfort benzocaine- 2021-05 Yes Topical, Un darlene menthol 06-15 PRN, ity of (DERMOPLAST 15:49: Starting [place] 20-0.5 % 22 on Fri Medical topical 04/15/22 Branch spray at 0949, Until Discontinu ed, Routine, Perineum discomfort oseltamivir 2021-05 No 75mg 75 mg, Uni vers (TAMIFLU) 06-15 Oral, ity of capsule 75 15:00: 21:03 DAILY, 1 [place] mg 00 :00 dose, Medical First dose Branch on Fri04/15/22 at 0900, Routine oseltamivir 2021-05 No 75mg 75 mg, Uni vers (TAMIFLU) 06-15 Oral, ity of capsule 75 15:00: 21:03 DAILY, 1 [place] mg 00 :00 dose, Medical First dose Branch on Fri04/15/22 at 0900, Routine oxytocin 2021-05 No 2mU/min at 2-40 Un darlene (PITOCIN) 06-15 11-21 mL/hr, IV ity of 30 units in 06:51: 15:49 Infusion, [place] NS 500 mL 05 :25 TITRATE, Medica l IV infusion Starting Bran ch on Fri04/15/22 at 0051, Until Fri04/15/22 at 0949, NIXON oxytocin 2021-05- No 2mU/min at 2-40 Un darlene (PITOCIN) 06-15 mL/hr, IV ity of 30 units in 06:51: 15:49 Infusion, [place] NS 500 mL 05 :25 TITRATE, Medica l IV infusion Starting Bran ch on Fri04/15/22 at 0051, Until Fri04/15/22 at 0949, NIXON ePHEDrine 2021-05- No Intramuscu U nivers (AKOVAZ) 06-15 lar, ONCE ity o f injection 05:14: 13:53 INTRA [place] 00 :59 PROCEDURE, Medical Starting Branch on [place] 04/14/22 at 2314, Until Fri04/15/22 at 0753, Routine, Intra-op PHENYLephri 2021-05- No Slow IV Un darlene ne 1000 06-15 Push, ONCE ity o f mcg/10 mL 05:11: 13:53 INTRA [place] in 0.9% 00 :59 PROCEDURE, Medica l NaCl Starting Branch syringe on [place] 04/14/22 at 2311, Until Fri04/15/22 at 0753, Routine, Intra-op ropivacaine 2021-05- No Epidural, Univers 0.2 % 06-15 CONTINUOUS ity of (NAROPIN 05:10: 13:53 PRN, [place] (PF)) 00 :59 Starting Medical epidural on [place] Branch infusion 04/14/22 at 2310, Until Fri04/15/22 at 0753, Routine, Intra-op lidocaine-e 2021-05- No Epidural, Univers pinephrine 06-15 ONCE INTRA it y of (XYLOCAINE 05:02: 13:53 PROCEDURE, [place] W/EPINEPHRI 00 :59 Starting Medi antolin NE) 1.5 on [place] Branch %-1:200,000 04/14/22 injection at 2302, Until Fri04/15/22 at 0753, Routine, Intra-op lactated 2021-05- No 500mL at 999 Unive rs ringers IV 06-15 mL/hr, 500 it y of infusion 04:30: 05:00 mL, IV [place] 500 mL 00 :00 Infusion, Medical ONCE, 1 Branch dose, On 04/14/22 at 2230, Routine lactated 2021-05- No 500mL at 999 Unive rs ringers IV 06-15 mL/hr, 500 it y of infusion 04:30: 05:00 mL, IV [place] 500 mL 00 :00 Infusion, Medical ONCE, 1 Branch dose, On 04/14/22 at 2230, Routine acetaminoph 2021-05 No 1000mg 1,000 mg, Univers en 06-15 Oral, ity of (TYLENOL) 04:15: 04:06 ONCE, 1 [place] tablet 00 :00 dose, On Medical 1,000 mg [place] Branch 04/14/22 at 2215, Routine acetaminoph 2021-05 No 1000mg 1,000 mg, Univers en 06-15 Oral, ity of (TYLENOL) 04:15: 04:06 ONCE, 1 [place] tablet 00 :00 dose, On Medical 1,000 mg Sun [place] 04/14/22 at 2215, Routine sodium 2021-05 No 30mL 30 mL, Univers citrate-cit 06-15 Oral, ity of dennis acid 03:42: 04:18 PRE-PROCED [place] (BICITRA) 35 :00 URE ONCE, Medic al 500-334 1 dose, Branch mg/5 mL Starting solution 30 on Sun mL 04/14/22 at 2142, Until 04/14/22 at 2218, Routine, Surgery/Pr ocedure sodium 2021-05- No 30mL 30 mL, Univers citrate-cit 06-15 Oral, ity of dennis acid 03:42: 04:18 PRE-PROCED [place] (BICITRA) 35 :00 URE ONCE, Medic al 500-334 1 dose, Branch mg/5 mL Starting solution 30 on Sun mL 04/14/22 at 2142, Until 04/14/22 at 2218, Routine, Surgery/Pr ocedure oseltamivir 2021-05- Yes 75mg 75 mg, Uni vers (TAMIFLU) 06-15 Oral, BID, ity of capsule 75 03:30: 01:59 10 doses, [place] mg 00 :00 First dose Medical (after Branch last reorder) on Fri04/14/22 at 2130, Last dose on Fri04/19/22 at 0800, Routine oseltamivir 2021-05- Yes 75mg 75 mg, Uni vers (TAMIFLU) 06-15 Oral, BID, ity of capsule 75 03:30: 01:59 10 doses, [place] mg 00 :00 First dose Medical (after Branch last reorder) on Fri04/14/22 at 2130, Last dose on Fri04/19/22 at 0800, Routine dextrometho 2021-05 Yes 5mL 5 mL, [facility] 06-15 Oral, ity of enesin 00:26: Q6HPRN, [place] (ROBITUSSIN 08 Starting [facility] DM) 10-100 on Sun Branch mg/5 mL 04/14/22 solution 5 at 1826, mL Until Discontinu ed, Routine, Cough dextrometho 2021-05 Yes 5mL 5 mL, [facility] 06-15 Oral, ity of enesin 00:26: Q6HPRNLuray, [place] (ROBITUSSIN 08 Starting [facility] DM) 10-100 on Sun Branch mg/5 mL 04/14/22 solution 5 at 1826, mL Until Discontinu ed, Routine, Cough ondansetron 2021-05 No 4mg 4 mg, Slow Univers (ZOFRAN 1-14 04-20 IV Push, ity of (PF)) 23:45: 22:57 ONCE, On [place] injection 4 00 :00 Sun Medical mg 04/14/22 Branch at 1745, For 1 dose
Do ses of ondansetro n 16 mg and above need to be administer ed via IV piggyback. For Dose >=24mg ECG monitoring is advisable.
ondansetron 2021-05 No 4mg 4 mg, Slow Univers (ZOFRAN 1-20 11-20 IV Push, ity of (PF)) 23:45: 22:57 ONCE, On [place] injection 4 00 :00 Sun Medical mg 04/14/22 Branch at 1745, For 1 dose
Do ses of ondansetro n 16 mg and above need to be administer ed via IV piggyback. For Dose >=24mg ECG monitoring is advisable.
acetaminoph 2021-05 No 1000mg 1,000 mg, Univers en 06-14 Oral, ity of (TYLENOL) 20:56: 21:07 ONCE, 1 [place] tablet 00 :00 dose, On Medical 1,000 mg [facility] 04/14/22 at 1500, Routine acetaminoph 2021-05 No 1000mg 1,000 mg, Univers en 06-14 Oral, ity of (TYLENOL) 20:56: 21:07 ONCE, 1 [place] tablet 00 :00 dose, On Medical 1,000 mg [facility] 04/14/22 at 1500, Routine lactated 2021-05- No 500mL at 999 Unive rs ringers IV - 11-21 mL/hr, 500 it y of infusion 15:02: 15:49 mL, IV [place] 500 mL 05 :25 Infusion, Medical PRN - SEE Branch INSTRUCTIO NS, Starting on [place] 04/14/22 at 0902, Until Fri04/15/22 at 0949, Routine D5W-LR IV 2021-05- No 1000mL at 1-125 U nivers infusion - 11-21 mL/hr, IV ity o f 1,000 mL 15:02: 15:49 Infusion, [place] 05 :25 TITRATE, Medical Starting Branch on [place] 04/14/22 at 0902, Until Fri04/15/22 at 0949, Routine lactated 2021-05 No 500mL at 999 Unive rs ringers IV 1-20 11-21 mL/hr, 500 it y of infusion 15:02: 15:49 mL, IV [place] 500 mL 05 :25 Infusion, Medical PRN - SEE Branch INSTRUCTIO NS, Starting on [place] 04/14/22 at 0902, Until Fri04/15/22 at 0949, Routine D5W-LR IV 2021-05- No 1000mL at 1-125 U nivers infusion - 11-21 mL/hr, IV ity o f 1,000 mL 15:02: 15:49 Infusion, [place] 05 :25 TITRATE, Medical Starting Branch on 04/14/22 at 0902, Until 04/15/22 at 0949, Routine acetaminoph 2021-05- No 1000mg 1,000 mg, Univers en 06-02 Oral, ONCE ity of (TYLENOL) 19:00: 18:33 NOW, 1 [place] tablet 00 :00 dose, On Medical 1,000 mg Tue Branch 04/02/22 at 1300, Routine metroNIDAZO 2021-05- Yes [id number] 500mg Take 1 Univers LE 500 mg 06-02 tablet by ity of tablet 00:00: 05:59 mouth in [place] 00 :00 the Medical morning Branch and 1 tablet in the evening. Do all this for 7 days. metroNIDAZO 2021-05- Yes [id number] 500mg Take 1 Univers LE 500 mg 06-02 tablet by ity of tablet 00:00: 05:59 mouth in [place] 00 :00 the [facility] morning Branch and 1 tablet in the evening. Do all this for 7 days. metroNIDAZO 2021-05- Yes [id number] 500mg Take 1 Univers LE 500 mg 06-02 tablet by ity of tablet 00:00: 05:59 mouth in [place] 00 :00 the [facility] morning Branch and 1 tablet in the evening. Do all this for 7 days. metroNIDAZO 2021-05- Yes [id number] 500mg Take 1 Univers LE 500 mg 06-02 tablet by ity of tablet 00:00: 05:59 mouth in [place] 00 :00 the [facility] morning Branch and 1 tablet in the evening. Do all this for 7 days. metroNIDAZO 2021-05- Yes [id number] 500mg Take 1 Univers LE 500 mg 06-02 tablet by ity of tablet 00:00: 05:59 mouth in [place] 00 :00 the [facility] morning Branch and 1 tablet in the evening. Do all this for 7 days. valACYclovi 2021-05- Yes [id number] 500mg Take 1 Univers r (VALTREX) 05-28 12-04 tablet by it y of 500 mg 00:00: 05:59 mouth in [place] tablet 00 :00 the Medical morning Branch and 1 tablet in the evening. Do all this for 30 days. valACYclovi 2021-05- Yes [id number] 500mg Take 1 [facility] ([facility]) 05-28 tablet by [facility] of 500 mg 00:00: 05:59 mouth in [place] tablet 00 :00 the Medical morning Branch and 1 tablet in the evening. Do all this for 30 days. valACYclovi 2021-05- Yes [id number] 500mg Take 1 [facility] ([facility]) 05-28 tablet by [facility] of 500 mg 00:00: 05:59 mouth in [place] tablet 00 :00 the Medical morning Branch and 1 tablet in the evening. Do all this for 30 days. valACYclovi 2021-05- Yes [id number] 500mg Take 1 [facility] ([facility]) 05-28 tablet by [facility] of 500 mg 00:00: 05:59 mouth in [place] tablet 00 :00 the Medical morning Branch and 1 tablet in the evening. Do all this for 30 days. valACYclovi 2021-05- Yes [id number] 500mg Take 1 [facility] ([facility]) 05-28 tablet by [facility] y of 500 mg 00:00: 05:59 mouth in [place] tablet 00 :00 the Medical morning Branch and 1 tablet in the evening. Do all this for 30 days. valACYclovi 2021-05- Yes [id number] 500mg Take 1 [facility] ([facility]) 05-28 tablet by [facility] y of 500 mg 00:00: 05:59 mouth in [place] tablet 00 :00 the Medical morning Branch and 1 tablet in the evening. Do all this for 30 days. valACYclovi 2021-05- Yes [id number] 500mg Take 1 [facility] ([facility]) 05-28 tablet by [facility] of 500 mg 00:00: 05:59 mouth in [place] tablet 00 :00 the Medical morning Branch and 1 tablet in the evening. Do all this for 30 days. valACYclovi 2021-05- Yes [id number] 500mg Take 1 [facility] ([facility]) 05-28 tablet by [facility] of 500 mg 00:00: 05:59 mouth in [place] tablet 00 :00 the Medical morning Branch and 1 tablet in the evening. Do all this for 30 days. valACYclovi 2021-05- Yes [id number] 500mg Take 1 [facility] ([facility]) 05-28 tablet by [facility] y of 500 mg 00:00: 05:59 mouth in [place] tablet 00 :00 the Medical morning Branch and 1 tablet in the evening. Do all this for 30 days. valACYclovi 2021-05- Yes [id number] 500mg Take 1 [facility] ([facility]) 05-28 tablet by [facility] of 500 mg 00:00: 05:59 mouth in [place] tablet 00 :00 the Medical morning Branch and 1 tablet in the evening. Do all this for 30 days. valACYclovi 2021-05- Yes [id number] 500mg Take 1 [facility] ([facility]) 05-28 tablet by [facility] of 500 mg 00:00: 05:59 mouth in [place] tablet 00 :00 the Medical morning Branch and 1 tablet in the evening. Do all this for 30 days. valACYclovi 2021-05- Yes [id number] 500mg Take 1 [facility] ([facility]) 05-28 tablet by [facility] of 500 mg 00:00: 05:59 mouth in [place] tablet 00 :00 the Medical morning Branch and 1 tablet in the evening. Do all this for 30 days. valACYclovi 2021-05- Yes [id number] 500mg Take 1 [facility] ([facility]) 05-28 tablet by it y of 500 mg 00:00: 05:59 mouth in [place] tablet 00 :00 the Medical morning Branch and 1 tablet in the evening. Do all this for 30 days. valACYclovi 2021-05- Yes [id number] 500mg Take 1 [facility] ([facility]) 05-28 tablet by [facility] y of 500 mg 00:00: 05:59 mouth in [place] tablet 00 :00 the Medical morning Branch and 1 tablet in the evening. Do all this for 30 days. valACYclovi 2021-05- Yes [id number] 500mg Take 1 [facility] ([facility]) 05-28 tablet by [facility] of 500 mg 00:00: 05:59 mouth in [place] tablet 00 :00 the Medical morning Branch and 1 tablet in the evening. Do all this for 30 days. valACYclovi 2021-05- Yes [id number] 500mg Take 1 [facility] ([facility]) 05-28 12-04 tablet by it y of 500 mg 00:00: 05:59 mouth in [place] tablet 00 :00 the Medical morning Branch and 1 tablet in the evening. Do all this for 30 days. valACYclovi 2021-05- No [id number] 500mg Take 1 [facility] ([facility]) 05-28 11-22 tablet by it y of 500 mg 00:00: 00:00 mouth in [place] tablet 00 :00 the Medical morning Branch and 1 tablet in the evening. Do all this for 30 days. metroNIDAZO 2021-05 Yes [id number] 500mg Take 1 [facility] 500 mg 0-18 tablet by [facility] o f tablet 00:00: mouth in [place] 00 the Medical morning Branch and 1 tablet in the evening. metroNIDAZO 2021-05 Yes [id number] 500mg Take 1 [facility] 500 mg 0-18 tablet by [facility] o f tablet 00:00: mouth in [place] 00 the Medical morning Branch and 1 tablet in the evening. metroNIDAZO 2021-05 Yes [id number] 500mg Take 1 [facility] 500 mg 0-18 tablet by [facility] o f tablet 00:00: mouth in [place] 00 the Medical morning Branch and 1 tablet in the evening. metroNIDAZO 2021-05 Yes [id number] 500mg Take 1 [facility] 500 mg 0-18 tablet by [facility] o f tablet 00:00: mouth in [place] 00 the Medical morning Branch and 1 tablet in the evening. metroNIDAZO 2021-05 Yes [id number] 500mg Take 1 [facility] 500 mg 0-18 tablet by [facility] o f tablet 00:00: mouth in [place] 00 the Medical morning Branch and 1 tablet in the evening. metroNIDAZO 2021-05 Yes [id number] 500mg Take 1 [facility] 500 mg 0-18 tablet by [facility] o f tablet 00:00: mouth in [place] 00 the Medical morning Branch and 1 tablet in the evening. metroNIDAZO 2021-05 Yes [id number] 500mg Take 1 [facility] 500 mg 0-18 tablet by [facility] o f tablet 00:00: mouth in [place] 00 the Medical morning Branch and 1 tablet in the evening. metroNIDAZO 2021-05 Yes [id number] 500mg Take 1 [facility] 500 mg 0-18 tablet by [facility] o f tablet 00:00: mouth in [place] 00 the Medical morning Branch and 1 tablet in the evening. metroNIDAZO 2021-05 Yes [id number] 500mg Take 1 [facility] 500 mg 0-18 tablet by [facility] o f tablet 00:00: mouth in [place] 00 the Medical morning Branch and 1 tablet in the evening. metroNIDAZO 2021-05 Yes [id number] 500mg Take 1 [facility] 500 mg 0-18 tablet by [facility] o f tablet 00:00: mouth in [place] 00 the Medical morning Branch and 1 tablet in the evening. metroNIDAZO 2021-05 Yes [id number] 500mg Take 1 [facility] 500 mg 0-18 tablet by [facility] o f tablet 00:00: mouth in [place] 00 the Medical morning Branch and 1 tablet in the evening. metroNIDAZO 2021-05 Yes [id number] 500mg Take 1 [facility] 500 mg 0-18 tablet by [facility] o f tablet 00:00: mouth in [place] 00 the Medical morning Branch and 1 tablet in the evening. metroNIDAZO 2021-05 Yes [id number] 500mg Take 1 [facility] 500 mg 0-18 tablet by [facility] o f tablet 00:00: mouth in [place] 00 the Medical morning Branch and 1 tablet in the evening. metroNIDAZO 2021-05 Yes [id number] 500mg Take 1 [facility] 500 mg 0-18 tablet by [facility] o f tablet 00:00: mouth in [place] 00 the Medical morning Branch and 1 tablet in the evening. metroNIDAZO 2021-05 Yes [id number] 500mg Take 1 [facility] 500 mg 0-18 tablet by [facility] o f tablet 00:00: mouth in [place] 00 the Medical morning Branch and 1 tablet in the evening. metroNIDAZO 2021-05 Yes [id number] 500mg Take 1 [facility] 500 mg 0-18 tablet by [facility] o f tablet 00:00: mouth in [place] 00 the Medical morning Branch and 1 tablet in the evening. metroNIDAZO 2021-05- No [id number] 500mg Take 1 [facility] 500 mg 0-18 11-08 tablet by [facility] of tablet 00:00: 00:00 mouth in [place] 00 :00 the Medical morning Branch and 1 tablet in the evening. fluconazole 2021-05- Yes [id number] 150mg Take 1 [facility] (DIFLUCAN) 0-18 10-19 tablet by [facility] of 150 mg 00:00: 04:59 [place] tablet 00 :00 now for 1 Medical dose. Branch fluconazole 2021-05- Yes [id number] 150mg Take 1 [facility] (DIFLUCAN) 0-18 10-19 tablet by [facility] of 150 mg 00:00: 04:59 mouth [place] tablet 00 :00 now for 1 Medical dose. Branch proMETHazin Yes [id number] 25mg Take 1 [facility] 25 mg 5-05 tablet by [facility] of tablet 00:00: mouth [place] 00 every 6 Medical (six) Branch hours as needed for Nausea and Vomiting (N/V). Yes [id number] 1{tbl} Take 1 [facility] 5-05 tablet by [facility] of n ( 00:00: mouth [place] VITAMIN) 00 daily. Medical tablet Branch proMETHazin Yes [id number] 25mg Take 1 [facility] 25 mg 5-05 tablet by [facility] of tablet 00:00: mouth [place] 00 every 6 Medical (six) Branch hours as needed for Nausea and Vomiting (N/V). Yes [id number] 1{tbl} Take 1 [facility] 5-05 tablet by [facility] of n ( 00:00: mouth [place] VITAMIN) 00 daily. Medical tablet Branch proMETHazin Yes [id number] 25mg Take 1 [facility] 25 mg 5-05 tablet by [facility] of tablet 00:00: mouth [place] 00 every 6 Medical (six) Branch hours as needed for Nausea and Vomiting (N/V). Yes [id number] 1{tbl} Take 1 [facility] 5-05 tablet by [facility] of n ( 00:00: mouth [place] VITAMIN) 00 daily. Medical tablet Branch proMETHazin Yes [id number] 25mg Take 1 [facility] 25 mg 5-05 tablet by [facility] of tablet 00:00: mouth [place] 00 every 6 Medical (six) Branch hours as needed for Nausea and Vomiting (N/V). Yes [id number] 1{tbl} Take 1 [facility] 5-05 tablet by [facility] of n ( 00:00: mouth [place] VITAMIN) 00 daily. Medical tablet Branch proMETHazin Yes [id number] 25mg Take 1 [facility] 25 mg 5-05 tablet by [facility] of tablet 00:00: mouth [place] 00 every 6 Medical (six) Branch hours as needed for Nausea and Vomiting (N/V). Yes [id number] 1{tbl} Take 1 [facility] 5-05 tablet by [facility] of n ( 00:00: mouth [place] VITAMIN) 00 daily. Medical tablet Branch proMETHazin Yes [id number] 25mg Take 1 [facility] 25 mg 5-05 tablet by [facility] of tablet 00:00: mouth [place] 00 every 6 Medical (six) Branch hours as needed for Nausea and Vomiting (N/V). Yes [id number] 1{tbl} Take 1 [facility] 5-05 tablet by [facility] of n ( 00:00: mouth [place] VITAMIN) 00 daily. Medical tablet Branch proMETHazin Yes [id number] 25mg Take 1 [facility] 25 mg 5-05 tablet by [facility] of tablet 00:00: mouth [place] 00 every 6 Medical (six) Branch hours as needed for Nausea and Vomiting (N/V). Yes [id number] 1{tbl} Take 1 [facility] 5-05 tablet by [facility] of n ( 00:00: mouth [place] VITAMIN) 00 daily. Medical tablet Branch proMETHazin Yes [id number] 25mg Take 1 [facility] 25 mg 5-05 tablet by [facility] of tablet 00:00: mouth [place] 00 every 6 Medical (six) Branch hours as needed for Nausea and Vomiting (N/V). Yes [id number] 1{tbl} Take 1 [facility] 5-05 tablet by [facility] of n ( 00:00: mouth [place] VITAMIN) 00 daily. Medical tablet Branch proMETHazin Yes [id number] 25mg Take 1 [facility] 25 mg 5-05 tablet by [facility] of tablet 00:00: mouth [place] 00 every 6 Medical (six) Branch hours as needed for Nausea and Vomiting (N/V). 2021- Yes [id number] 1{tbl} Take 1 [facility] 5-05 tablet by [facility] of n ( 00:00: mouth [place] VITAMIN) 00 daily. Medical tablet Branch proMETHazin Yes [id number] 25mg Take 1 [facility] 25 mg 5-05 tablet by [facility] of tablet 00:00: mouth [place] 00 every 6 Medical (six) Branch hours as needed for Nausea and Vomiting (N/V). Yes [id number] 1{tbl} Take 1 [facility] 5-05 tablet by [facility] of n ( 00:00: mouth [place] VITAMIN) 00 daily. Medical tablet Branch proMETHazin Yes [id number] 25mg Take 1 [facility] 25 mg 5-05 tablet by [facility] of tablet 00:00: mouth [place] 00 every 6 Medical (six) Branch hours as needed for Nausea and Vomiting (N/V). Yes [id number] 1{tbl} Take 1 [facility] 5-05 tablet by [facility] of n ( 00:00: mouth [place] VITAMIN) 00 daily. Medical tablet Branch proMETHazin Yes [id number] 25mg Take 1 [facility] 25 mg 5-05 tablet by [facility] of tablet 00:00: mouth [place] 00 every 6 Medical (six) Branch hours as needed for Nausea and Vomiting (N/V). Yes [id number] 1{tbl} Take 1 [facility] 5-05 tablet by [facility] of n ( 00:00: mouth [place] VITAMIN) 00 daily. Medical tablet Branch proMETHazin Yes [id number] 25mg Take 1 [facility] 25 mg 5-05 tablet by [facility] of tablet 00:00: mouth [place] 00 every 6 Medical (six) Branch hours as needed for Nausea and Vomiting (N/V). Yes [id number] 1{tbl} Take 1 [facility] 5-05 tablet by [facility] of n ( 00:00: mouth [place] VITAMIN) 00 daily. Medical tablet Branch proMETHazin Yes [id number] 25mg Take 1 [facility] 25 mg 5-05 tablet by [facility] of tablet 00:00: mouth [place] 00 every 6 Medical (six) Branch hours as needed for Nausea and Vomiting (N/V). 2021- Yes [id number] 1{tbl} Take 1 [facility] 5-05 tablet by [facility] of n ( 00:00: mouth [place] VITAMIN) 00 daily. Medical tablet Branch proMETHazin Yes [id number] 25mg Take 1 [facility] 25 mg 5-05 tablet by [facility] of tablet 00:00: mouth [place] 00 every 6 Medical (six) Branch hours as needed for Nausea and Vomiting (N/V). Yes [id number] 1{tbl} Take 1 [facility] 5-05 tablet by [facility] of n ( 00:00: mouth [place] VITAMIN) 00 daily. Medical tablet Branch proMETHazin Yes [id number] 25mg Take 1 [facility] 25 mg 5-05 tablet by [facility] of tablet 00:00: mouth [place] 00 every 6 Medical (six) Branch hours as needed for Nausea and Vomiting (N/V). Yes [id number] 1{tbl} Take 1 [facility] 5-05 tablet by [facility] of n ( 00:00: mouth [place] VITAMIN) 00 daily. Medical tablet Branch proMETHazin Yes [id number] 25mg Take 1 [facility] 25 mg 5-05 tablet by [facility] of tablet 00:00: mouth [place] 00 every 6 Medical (six) Branch hours as needed for Nausea and Vomiting (N/V). Yes [id number] 1{tbl} Take 1 [facility] 5-05 tablet by [facility] of n ( 00:00: mouth [place] VITAMIN) 00 daily. Medical tablet Branch proMETHazin Yes [id number] 25mg Take 1 [facility] 25 mg 5-05 tablet by [facility] of tablet 00:00: mouth [place] 00 every 6 Medical (six) Branch hours as needed for Nausea and Vomiting (N/V). Yes [id number] 1{tbl} Take 1 [facility] 5-05 tablet by [facility] of n ( 00:00: mouth [place] VITAMIN) 00 daily. Medical tablet Branch proMETHazin Yes [id number] 25mg Take 1 [facility] 25 mg 5-05 tablet by [facility] of tablet 00:00: mouth [place] 00 every 6 Medical (six) Branch hours as needed for Nausea and Vomiting (N/V). Yes [id number] 1{tbl} Take 1 [facility] 5-05 tablet by [facility] of n ( 00:00: mouth [place] VITAMIN) 00 daily. Medical tablet Branch proMETHazin Yes [id number] 25mg Take 1 [facility] 25 mg 5-05 tablet by [facility] of tablet 00:00: mouth [place] 00 every 6 Medical (six) Branch hours as needed for Nausea and Vomiting (N/V). Yes [id number] 1{tbl} Take 1 [facility] 5-05 tablet by [facility] of n ( 00:00: mouth [place] VITAMIN) 00 daily. Medical tablet Branch proMETHazin Yes [id number] 25mg Take 1 [facility] 25 mg 5-05 tablet by [facility] of tablet 00:00: mouth [place] 00 every 6 Medical (six) Branch hours as needed for Nausea and Vomiting (N/V). Yes [id number] 1{tbl} Take 1 [facility] 5-05 tablet by [facility] of n ( 00:00: mouth [place] VITAMIN) 00 daily. Medical tablet Branch proMETHazin Yes [id number] 25mg Take 1 [facility] 25 mg 5-05 tablet by [facility] of tablet 00:00: mouth [place] 00 every 6 Medical (six) Branch hours as needed for Nausea and Vomiting (N/V). Yes [id number] 1{tbl} Take 1 [facility] 5-05 tablet by [facility] of n ( 00:00: mouth [place] VITAMIN) 00 daily. Medical tablet Branch proMETHazin Yes [id number] 25mg Take 1 [facility] 25 mg 5-05 tablet by [facility] of tablet 00:00: mouth [place] 00 every 6 Medical (six) Branch hours as needed for Nausea and Vomiting (N/V). Yes [id number] 1{tbl} Take 1 [facility] 5-05 tablet by [facility] of n ( 00:00: mouth [place] VITAMIN) 00 daily. Medical tablet Branch proMETHazin Yes [id number] 25mg Take 1 [facility] 25 mg 5-05 tablet by [facility] of tablet 00:00: mouth [place] 00 every 6 Medical (six) Branch hours as needed for Nausea and Vomiting (N/V). Yes [id number] 1{tbl} Take 1 [facility] 5-05 tablet by [facility] of n ( 00:00: mouth [place] VITAMIN) 00 daily. Medical tablet Branch proMETHazin Yes [id number] 25mg Take 1 [facility] 25 mg 5-05 tablet by [facility] of tablet 00:00: mouth [place] 00 every 6 Medical (six) Branch hours as needed for Nausea and Vomiting (N/V). Yes [id number] 1{tbl} Take 1 [facility] 5-05 tablet by [facility] of n ( 00:00: mouth [place] VITAMIN) 00 daily. Medical tablet Branch proMETHazin Yes [id number] 25mg Take 1 [facility] 25 mg 5-05 tablet by [facility] of tablet 00:00: mouth [place] 00 every 6 Medical (six) Branch hours as needed for Nausea and Vomiting (N/V). Yes [id number] 1{tbl} Take 1 [facility] 5-05 tablet by [facility] of n ( 00:00: mouth [place] VITAMIN) 00 daily. Medical tablet Branch proMETHazin Yes [id number] 25mg Take 1 [facility] 25 mg 5-05 tablet by [facility] of tablet 00:00: mouth [place] 00 every 6 Medical (six) Branch hours as needed for Nausea and Vomiting (N/V). Yes [id number] 1{tbl} Take 1 [facility] 5-05 tablet by [facility] of n ( 00:00: mouth [place] VITAMIN) 00 daily. Medical tablet Branch proMETHazin Yes [id number] 25mg Take 1 [facility] 25 mg 5-05 tablet by [facility] of tablet 00:00: mouth [place] 00 every 6 Medical (six) Branch hours as needed for Nausea and Vomiting (N/V). Yes [id number] 1{tbl} Take 1 [facility] 5-05 tablet by [facility] of n ( 00:00: mouth [place] VITAMIN) 00 daily. Medical tablet Branch proMETHazin Yes [id number] 25mg Take 1 [facility] 25 mg 5-05 tablet by [facility] of tablet 00:00: mouth [place] 00 every 6 Medical (six) Branch hours as needed for Nausea and Vomiting (N/V). Yes [id number] 1{tbl} Take 1 [facility] 5-05 tablet by [facility] of n ( 00:00: mouth [place] VITAMIN) 00 daily. Medical tablet Branch proMETHazin Yes [id number] 25mg Take 1 [facility] 25 mg 5-05 tablet by [facility] of tablet 00:00: mouth [place] 00 every 6 Medical (six) Branch hours as needed for Nausea and Vomiting (N/V). Yes [id number] 1{tbl} Take 1 [facility] 5-05 tablet by [facility] of n ( 00:00: mouth [place] VITAMIN) 00 daily. Medical tablet Branch proMETHazin Yes [id number] 25mg Take 1 [facility] 25 mg 5-05 tablet by [facility] of tablet 00:00: mouth [place] 00 every 6 Medical (six) Branch hours as needed for Nausea and Vomiting (N/V). Yes [id number] 1{tbl} Take 1 [facility] 5-05 tablet by [facility] of n ( 00:00: mouth [place] VITAMIN) 00 daily. Medical tablet Branch proMETHazin Yes [id number] 25mg Take 1 [facility] 25 mg 5-05 tablet by [facility] of tablet 00:00: mouth [place] 00 every 6 Medical (six) Branch hours as needed for Nausea and Vomiting (N/V). Yes [id number] 1{tbl} Take 1 [facility] 5-05 tablet by [facility] of n ( 00:00: mouth [place] VITAMIN) 00 daily. Medical tablet Branch proMETHazin Yes [id number] 25mg Take 1 [facility] 25 mg 5-05 tablet by [facility] of tablet 00:00: mouth [place] 00 every 6 Medical (six) Branch hours as needed for Nausea and Vomiting (N/V). Yes [id number] 1{tbl} Take 1 [facility] 5-05 tablet by [facility] of n ( 00:00: mouth [place] VITAMIN) 00 daily. Medical tablet Branch proMETHazin Yes [id number] 25mg Take 1 [facility] 25 mg 5-05 tablet by [facility] of tablet 00:00: mouth [place] 00 every 6 Medical (six) Branch hours as needed for Nausea and Vomiting (N/V). Yes [id number] 1{tbl} Take 1 [facility] 5-05 tablet by [facility] of n ( 00:00: mouth [place] VITAMIN) 00 daily. Medical tablet Branch proMETHazin Yes [id number] 25mg Take 1 [facility] 25 mg 5-05 tablet by [facility] of tablet 00:00: mouth [place] 00 every 6 Medical (six) Branch hours as needed for Nausea and Vomiting (N/V). Yes [id number] 1{tbl} Take 1 [facility] 5-05 tablet by [facility] of n ( 00:00: mouth [place] VITAMIN) 00 daily. Medical tablet Branch proMETHazin Yes [id number] 25mg Take 1 [facility] 25 mg 5-05 tablet by [facility] of tablet 00:00: mouth [place] 00 every 6 Medical (six) Branch hours as needed for Nausea and Vomiting (N/V). Yes [id number] 1{tbl} Take 1 [facility] 5-05 tablet by [facility] of n ( 00:00: mouth [place] VITAMIN) 00 daily. Medical tablet Branch proMETHazin Yes [id number] 25mg Take 1 [facility] 25 mg 5-05 tablet by [facility] of tablet 00:00: mouth [place] 00 every 6 Medical (six) Branch hours as needed for Nausea and Vomiting (N/V). Yes [id number] 1{tbl} Take 1 [facility] 5-05 tablet by [facility] of n ( 00:00: mouth [place] VITAMIN) 00 daily. Medical tablet Branch proMETHazin Yes [id number] 25mg Take 1 [facility] 25 mg 5-05 tablet by [facility] of tablet 00:00: mouth [place] 00 every 6 Medical (six) Branch hours as needed for Nausea and Vomiting (N/V). Yes [id number] 1{tbl} Take 1 [facility] 5-05 tablet by [facility] of n ( 00:00: mouth [place] VITAMIN) 00 daily. Medical tablet Branch proMETHazin Yes [id number] 25mg Take 1 [facility] 25 mg 5-05 tablet by [facility] of tablet 00:00: mouth [place] 00 every 6 Medical (six) Branch hours as needed for Nausea and Vomiting (N/V). Yes [id number] 1{tbl} Take 1 [facility] 5-05 tablet by [facility] of n ( 00:00: mouth [place] VITAMIN) 00 daily. Medical tablet Branch proMETHazin Yes [id number] 25mg Take 1 [facility] 25 mg 5-05 tablet by [facility] of tablet 00:00: mouth [place] 00 every 6 Medical (six) Branch hours as needed for Nausea and Vomiting (N/V). Yes [id number] 1{tbl} Take 1 [facility] 5-05 tablet by [facility] of n ( 00:00: mouth [place] VITAMIN) 00 daily. Medical tablet Branch proMETHazin Yes [id number] 25mg Take 1 [facility] 25 mg 5-05 tablet by [facility] of tablet 00:00: mouth [place] 00 every 6 Medical (six) Branch hours as needed for Nausea and Vomiting (N/V). Yes [id number] 1{tbl} Take 1 [facility] 5-05 tablet by [facility] of n ( 00:00: mouth [place] VITAMIN) 00 daily. Medical tablet Branch proMETHazin Yes [id number] 25mg Take 1 [facility] 25 mg 5-05 tablet by [facility] of tablet 00:00: mouth [place] 00 every 6 Medical (six) Branch hours as needed for Nausea and Vomiting (N/V). Yes [id number] 1{tbl} Take 1 [facility] 5-05 tablet by [facility] of n ( 00:00: mouth [place] VITAMIN) 00 daily. Medical tablet Branch proMETHazin Yes [id number] 25mg Take 1 [facility] 25 mg 5-05 tablet by [facility] of tablet 00:00: mouth [place] 00 every 6 Medical (six) Branch hours as needed for Nausea and Vomiting (N/V). Yes [id number] 1{tbl} Take 1 [facility] 5-05 tablet by [facility] of n ( 00:00: mouth [place] VITAMIN) 00 daily. Medical tablet Branch proMETHazin Yes [id number] 25mg Take 1 [facility] 25 mg 5-05 tablet by [facility] of tablet 00:00: mouth [place] 00 every 6 Medical (six) Branch hours as needed for Nausea and Vomiting (N/V). Yes [id number] 1{tbl} Take 1 [facility] 5-05 tablet by [facility] of n ( 00:00: mouth [place] VITAMIN) 00 daily. Medical tablet Branch proMETHazin Yes [id number] 25mg Take 1 [facility] 25 mg 5-05 tablet by [facility] of tablet 00:00: mouth [place] 00 every 6 Medical (six) Branch hours as needed for Nausea and Vomiting (N/V). Yes [id number] 1{tbl} Take 1 [facility] 5-05 tablet by [facility] of n ( 00:00: mouth [place] VITAMIN) 00 daily. Medical tablet Branch proMETHazin Yes [id number] 25mg Take 1 [facility] 25 mg 5-05 tablet by [facility] of tablet 00:00: mouth [place] 00 every 6 Medical (six) Branch hours as needed for Nausea and Vomiting (N/V). Yes [id number] 1{tbl} Take 1 [facility] 5-05 tablet by [facility] of n ( 00:00: mouth [place] VITAMIN) 00 daily. Medical tablet Branch proMETHazin Yes [id number] 25mg Take 1 [facility] 25 mg 5-05 tablet by [facility] of tablet 00:00: mouth [place] 00 every 6 Medical (six) Branch hours as needed for Nausea and Vomiting (N/V). Yes [id number] 1{tbl} Take 1 [facility] 5-05 tablet by [facility] of n ( 00:00: mouth [place] VITAMIN) 00 daily. Medical tablet Branch proMETHazin Yes [id number] 25mg Take 1 [facility] 25 mg 5-05 tablet by [facility] of tablet 00:00: mouth [place] 00 every 6 Medical (six) Branch hours as needed for Nausea and Vomiting (N/V). Yes [id number] 1{tbl} Take 1 [facility] 5-05 tablet by [facility] of n ( 00:00: mouth [place] VITAMIN) 00 daily. Medical tablet Branch proMETHazin Yes [id number] 25mg Take 1 [facility] 25 mg 5-05 tablet by [facility] of tablet 00:00: mouth [place] 00 every 6 Medical (six) Branch hours as needed for Nausea and Vomiting (N/V). Yes [id number] 1{tbl} Take 1 [facility] 5-05 tablet by [facility] n ( 00:00: mouth [place] VITAMIN) 00 daily. Medical tablet Branch proMETHazin Yes [id number] 25mg Take 1 [facility] 25 mg 5-05 tablet by [facility] of tablet 00:00: mouth [place] 00 every 6 Medical (six) Branch hours as needed for Nausea and Vomiting (N/V). Yes [id number] 1{tbl} Take 1 [facility] 5-05 tablet by [facility] n ( 00:00: mouth [place] VITAMIN) 00 daily. Medical tablet Branch proMETHazin Yes [id number] 25mg Take 1 [facility] 25 mg 5-05 tablet by [facility] of tablet 00:00: mouth [place] 00 every 6 Medical (six) Branch hours as needed for Nausea and Vomiting (N/V). Yes [id number] 1{tbl} Take 1 [facility] 5-05 tablet by [facility] of n ( 00:00: mouth [place] VITAMIN) 00 daily. Medical tablet Branch proMETHazin Yes [id number] 25mg Take 1 [facility] 25 mg 5-05 tablet by [facility] of tablet 00:00: mouth [place] 00 every 6 Medical (six) Branch hours as needed for Nausea and Vomiting (N/V). Yes [id number] 1{tbl} Take 1 [facility] 5-05 tablet by [facility] n ( 00:00: mouth [place] VITAMIN) 00 daily. Medical tablet Branch proMETHazin Yes [id number] 25mg Take 1 [facility] 25 mg 5-05 tablet by [facility] of tablet 00:00: mouth [place] 00 every 6 Medical (six) Branch hours as needed for Nausea and Vomiting (N/V). Yes [id number] 1{tbl} Take 1 [facility] 5-05 tablet by [facility] n ( 00:00: mouth [place] VITAMIN) 00 daily. Medical tablet Branch Yes [id number] 1{tbl} Take 1 [facility] 5-05 tablet by [facility] n ( 00:00: mouth [place] VITAMIN) 00 daily. Medical tablet Branch Yes [id number] 1{tbl} Take 1 [facility] 5-05 tablet by [facility] n ( 00:00: mouth [place] VITAMIN) 00 daily. Medical tablet Branch Yes [id number] 1{tbl} Take 1 [facility] multivitami 5-05 tablet by ity of n ( 00:00: mouth [place] VITAMIN) 00 daily. Medical tablet Branch 2021- No [id number] 1{tbl} Take 1 [facility] multivitami 5-05 11-22 tablet by [facility] ( [place] :[place] daily. [facility] tablet [facility] 2021- No [id number] 1{tbl} Take 1 [facility] multivitami 5-05 11-22 tablet by [facility] ( [place] :00 daily. Medical tablet [facility] proMETHazin 2021- No [id number] 25mg Take 1 Univers e 25 mg 5-05 11-17 tablet by ity of tablet 00:00: 00:00 mouth [place] 00 :00 every 6 Medical (six) Branch hours as needed for Nausea and Vomiting (N/V). Immunizations Ordered Immunization Filled Immunization Date Status Commen ts Source Name Name Influenza Virus 2022-02-19 Completed [facility], 00:00:00 [place] [facility] Preserv and ABX Free Bran ch 6 MO-64 YRS Influenza Virus 2022-02-19 Completed [facility]ine [facility], 00:00:00 [place] [facility] Preserv and ABX Free Bran ch 6 MO-64 YRS Influenza Virus 2022-02-19 Completed [facility] Vaccine [facility] IM, 00:00:00 [place] [facility] Preserv and ABX Free Bran ch 6 MO-64 YRS Influenza Virus 2022-02-19 Completed [facility] of Vaccine [facility] IM, 00:00:00 [place] [facility] Preserv and ABX Free Bran ch 6 MO-64 YRS Influenza Virus 2022-02-19 Completed [facility] of Vaccine [facility] IM, 00:00:00 [place] [facility] Preserv and ABX Free Bran ch 6 MO-64 YRS Influenza Virus 2022-02-19 Completed [facility] Vaccine [facility] IM, 00:00:00 [place] [facility] Preserv and ABX Free Bran ch 6 MO-64 YRS Influenza Virus 2022-02-19 Completed [facility] of Vaccine [facility] IM, 00:00:00 [place] [facility] Preserv and ABX Free Bran ch 6 MO-64 YRS Influenza Virus 2022-02-19 Completed [facility] of Vaccine [facility] IM, 00:00:00 [place] [facility] Preserv and ABX Free Bran ch 6 MO-64 YRS Influenza Virus 2022-02-19 Completed [facility] of Vaccine [facility] IM, 00:00:00 [place] [facility] Preserv and ABX Free Bran ch 6 MO-64 YRS Influenza Virus 2022-02-19 Completed [facility] of Vaccine [facility] IM, 00:00:00 [place] [facility] Preserv and ABX Free Bran ch 6 MO-64 YRS Influenza Virus 2022-02-19 Completed [facility] of Vaccine [facility] IM, 00:00:00 [place] [facility] Preserv and ABX Free Bran ch 6 MO-64 YRS Influenza Virus 2022-02-19 Completed [facility] of Vaccine [facility] IM, 00:00:00 [place] [facility] Preserv and ABX Free Bran ch 6 MO-64 YRS Influenza Virus 2022-02-19 Completed [facility] of Vaccine Quad IM, 00:00:00 [place] [facility] Preserv and ABX Free Bran ch 6 MO-64 YRS Influenza Virus 2022-02-19 Completed [facility] of Vaccine Quad IM, 00:00:00 [place] [facility] Preserv and ABX Free Bran ch 6 MO-64 YRS Influenza Virus 2022-02-19 Completed [facility] of Vaccine Quad IM, 00:00:00 [place] [facility] Preserv and ABX Free Bran ch 6 MO-64 YRS Influenza Virus 2022-02-19 Completed [facility] of Vaccine Quad IM, 00:00:00 [place] [facility] Preserv and ABX Free Bran ch 6 MO-64 YRS Influenza Virus 2022-02-19 Completed [facility] of Vaccine Quad IM, 00:00:00 [place] [facility] Preserv and ABX Free Bran ch 6 MO-64 YRS Influenza Virus 2022-02-19 Completed [facility] of Vaccine Quad IM, 00:00:00 [place] [facility] Preserv and ABX Free Bran ch 6 MO-64 YRS Influenza Virus 2022-02-19 Completed [facility] of Vaccine Quad IM, 00:00:00 [place] [facility] Preserv and ABX Free Bran ch 6 MO-64 YRS Influenza Virus 2022-02-19 Completed [facility]it [facility] of Vaccine Quad IM, 00:00:00 [place] [facility] Preserv and ABX Free Bran ch 6 MO-64 YRS Influenza Virus 2022-02-19 Completed [facility]it [facility] of Vaccine Quad IM, 00:00:00 [place] [facility] Preserv and ABX Free Bran ch 6 MO-64 YRS Influenza Virus 2022-02-19 Completed [facility]it [facility] of Vaccine Quad IM, 00:00:00 [place] [facility] Preserv and ABX Free Bran ch 6 MO-64 YRS Influenza Virus 2022-02-19 Completed [facility]it [facility] of Vaccine Quad IM, 00:00:00 [place] [facility] Preserv and ABX Free Bran ch 6 MO-64 YRS Influenza Virus 2022-02-19 Completed [facility]it [facility] of Vaccine Quad IM, 00:00:00 [place] [facility] Preserv and ABX Free Bran ch 6 MO-64 YRS Influenza Virus 2022-02-19 Completed [facility]it [facility] of Vaccine Quad IM, 00:00:00 [place] [facility] Preserv and ABX Free Bran ch 6 MO-64 YRS Influenza Virus 2022-02-19 Completed [facility]it [facility] of Vaccine Quad IM, 00:00:00 [place] [facility] Preserv and ABX Free Bran ch 6 MO-64 YRS Influenza Virus 2022-02-19 Completed [facility]it [facility] of Vaccine Quad IM, 00:00:00 [place] [facility] Preserv and ABX Free Bran ch 6 MO-64 YRS Influenza Virus 2022-02-19 Completed [facility]it y of Vaccine Quad IM, 00:00:00 [place] [facility] Preserv and ABX Free Bran ch 6 MO-64 YRS Influenza Virus 2022-02-19 Completed [facility]it [facility] of Vaccine Quad IM, 00:00:00 [place] [facility] Preserv and ABX Free Bran ch 6 MO-64 YRS Influenza Virus 2022-02-19 Completed [facility]it [facility] of Vaccine Quad IM, 00:00:00 [place] [facility] Preserv and ABX Free Bran ch 6 MO-64 YRS Influenza Virus 2022-02-19 Completed [facility]it [facility] of Vaccine Quad IM, 00:00:00 [place] [facility] Preserv and ABX Free Bran ch 6 MO-64 YRS Influenza Virus 2022-02-19 Completed [facility]it y of Vaccine Quad IM, 00:00:00 [place] [facility] Preserv and ABX Free Bran ch 6 MO-64 YRS Influenza Virus 2022-02-19 Completed [facility]it y of Vaccine Quad IM, 00:00:00 [place] [facility] Preserv and ABX Free Bran ch 6 MO-64 YRS Influenza Virus 2022-02-19 Completed [facility]it y of Vaccine Quad IM, 00:00:00 [place] [facility] Preserv and ABX Free Bran ch 6 MO-64 YRS Influenza Virus 2022-02-19 Completed [facility]it [facility] of Vaccine Quad IM, 00:00:00 [place] [facility] Preserv and ABX Free Bran ch 6 MO-64 YRS Influenza Virus 2022-02-19 Completed [facility]it [facility] of Vaccine Quad IM, 00:00:00 [place] [facility] Preserv and ABX Free Bran ch 6 MO-64 YRS Influenza Virus 2022-02-19 Completed [facility]it [facility] of Vaccine Quad IM, 00:00:00 [place] [facility] Preserv and ABX Free Bran ch 6 MO-64 YRS Influenza Virus 2022-02-19 Completed [facility]it y of Vaccine Quad IM, 00:00:00 [place] [facility] Preserv and ABX Free Bran ch 6 MO-64 YRS Influenza Virus 2022-02-19 Completed [facility]it [facility] of Vaccine Quad IM, 00:00:00 [place] [facility] Preserv and ABX Free Bran ch 6 MO-64 YRS Influenza Virus 2022-02-19 Completed [facility]it y of Vaccine Quad IM, 00:00:00 [place] [facility] Preserv and ABX Free Bran ch 6 MO-64 YRS Influenza Virus 2022-02-19 Completed [facility]it y of Vaccine Quad IM, 00:00:00 [place] [facility] Preserv and ABX Free Bran ch 6 MO-64 YRS Influenza Virus 2022-02-19 Completed [facility]it y of Vaccine Quad IM, 00:00:00 [place] [facility] Preserv and ABX Free Bran ch 6 MO-64 YRS Influenza Virus 2022-02-19 Completed [facility]it y of Vaccine Quad IM, 00:00:00 [place] [facility] Preserv and ABX Free Bran ch 6 MO-64 YRS [facility] 2022-02-07 Completed University of 00:00:00 [facility] 2022-02-07 Completed University of 00:00:00 [facility] 2022-02-07 Completed University of 00:00:00 [facility] 2022-02-07 Completed University of 00:00:00 [facility] 2022-02-07 Completed University of 00:00:00 [facility] 2022-02-07 Completed University of 00:00:00 [facility] 2022-02-07 Completed University of 00:00:00 [facility] 2022-02-07 Completed University of 00:00:00 [facility] 2022-02-07 Completed University of 00:00:00 [facility] 2022-02-07 Completed University of 00:00:00 [facility] 2022-02-07 Completed University of 00:00:00 [facility] 2022-02-07 Completed University of 00:00:00 [facility] 2022-02-07 Completed University of 00:00:00 [facility] 2022-02-07 Completed University of 00:00:00 [facility] 2022-02-07 Completed University of 00:00:00 [facility] 2022-02-07 Completed University of 00:00:00 [facility] 2022-02-07 Completed University of 00:00:00 [facility] 2022-02-07 Completed University of 00:00:00 [facility] 2022-02-07 Completed University of 00:00:00 [facility] 2022-02-07 Completed University of 00:00:00 [facility] 2022-02-07 Completed University of 00:00:00 [facility] 2022-02-07 Completed University of 00:00:00 [facility] 2022-02-07 Completed University of 00:00:00 [facility] 2022-02-07 Completed University of 00:00:00 [facility] 2022-02-07 Completed University of 00:00:00 [facility] 2022-02-07 Completed University of 00:00:00 [facility] 2022-02-07 Completed University of 00:00:00 [facility] TDAP 2022-02-07 Completed University of 00:00:00 [facility] TD 2022-02-07 Completed University of 00:00:00 [facility] TDAP 2022-02-07 [facility] 00:[facility]:00 [facility] 2022-02-07 Com[facility] 00:00:00 [facility] 2022-02-07 Completed University of 00:00:00 [facility] 2022-02-07 Completed University of 00:00:00 [facility] 2022-02-07 Completed University of 00:00:00 [facility] 2022-02-07 Completed University of 00:00:00 [facility] 2022-02-07 Completed University of 00:00:00 [facility] 2022-02-07 Completed University of 00:00:00 [facility] 2022-02-07 Completed University of 00:00:00 [facility] 2022-02-07 Completed University of 00:00:00 [facility] 2022-02-07 Completed University of 00:00:00 [facility] 2022-02-07 Completed University of 00:00:00 [facility] 2022-02-07 Completed [facility] 00:00:00 [facility] TDAP 2022-02-07 Completed University of 00:00:00 [facility] TDAP 2022-02-07 Completed University of 00:00:00 [facility] TDAP 2022-02-07 Completed University of 00:00:00 [facility] TDAP 2022-02-07 Completed University of 00:00:00 [facility] TDAP 2022-02-07 Completed University of 00:00:00 [facility] Influenza Virus 2020-02-29 Completed Universit y of Vaccine Quad .5 mL IM 00:00:00 [facility] 6+ [facility] Influenza Virus 2020-02-29 Completed Universit y of [...] Branch TDAP 2019-11-29 Completed University of 00:00:00 [facility] TDAP 2019-11-29 Completed University of 00:00:00 [facility] TDAP 2019-11-29 Completed University of 00:00:00 [facility] TDAP 2019-11-29 Completed University of 00:00:00 [facility] TDAP 2019-11-29 Completed University of 00:00:00 [facility] TDAP 2019-11-29 Completed University of 00:00:00 [facility] TDAP 2019-11-29 Completed University of 00:00:00 [place] [facility] TDAP 2019-11-29 Completed University of 00:00:00 [facility] TDAP 2019-11-29 Completed University of 00:00:00 [facility] TDAP 2019-11-29 Completed University of 00:00:00 [facility] TDAP 2019-11-29 Completed University of 00:00:00 [place] [facility] TDAP 2019-11-29 Completed [facility] 00:00:00 [place] [facility] TDAP 2019-11-29 Completed University of 00:00:00 [facility] TDAP 2019-11-29 Completed University of 00:00:00 [facility] TDAP 2019-11-29 Completed University of 00:00:00 [facility] TDAP 2019-11-29 Completed University of 00:00:00 [place] [facility] [place] TDAP 2019-11-29 Completed University of 00:00:00 [place] [facility] [place] TDAP 2019-11-29 Completed [facility] of 00:00:00 [place] [facility] TDAP 2019-11-29 Completed [facility] 00:00:00 [place] [facility] [place] TDAP 2019-11-29 Completed University of 00:00:00 [facility] TDAP 2019-11-29 Completed University of 00:00:00 [facility] TDAP 2019-11-29 Completed University of 00:00:00 [place] [facility] TDAP 2019-11-29 Completed University of 00:00:00 [facility] TDAP 2019-11-29 Completed University of 00:00:00 [facility] TDAP 2019-11-29 Completed University of 00:00:00 [facility] TDAP 2019-11-29 Completed University of 00:00:00 [facility] TDAP 2019-11-29 Completed University of 00:00:00 [facility] TDAP 2019-11-29 Completed University of 00:00:00 [facility] TDAP 2019-11-29 Completed University of 00:00:00 [facility] TDAP 2019-11-29 Completed University of 00:00:00 [facility] TDAP 2019-11-29 Completed [facility] of 00:00:00 [place] [facility] [place] TDAP 2019-11-29 Completed University of 00:00:00 [facility] TDAP 2019-11-29 Completed University of 00:00:00 [facility] TDAP 2019-11-29 Completed University of 00:00:00 [facility] TDAP 2019-11-29 Completed University of 00:00:00 [facility] TDAP 2019-11-29 Completed [facility] of 00:00:00 [place] [facility] [place] TDAP 2019-11-29 Completed University of 00:00:00 [facility] TDAP 2019-11-29 Completed University of 00:00:00 [place] [facility] [place] TDAP 2019-11-29 Completed [facility] of 00:00:00 [place] [facility] [place] TDAP 2019-11-29 Completed [facility] of 00:00:00 [facility] [place] TDAP 2019-11-29 Completed University of 00:00:00 [facility] TDAP 2019-11-29 Completed University of 00:00:00 [facility] TDAP 2019-11-29 Completed University of 00:00:00 [facility] TDAP 2019-11-29 Completed University of 00:00:00 [facility] TDAP 2019-11-29 Completed [facility] of 00:00:00 [facility] TDAP 2019-11-29 Completed [facility] of 00:00:00 [facility] TDAP 2019-11-29 Completed University of 00:00:00 [facility] TDAP 2019-11-29 Completed University of 00:00:00 [facility] TDAP 2019-11-29 Completed [facility] of 00:00:00 [place] [facility] TDAP 2019-11-29 Completed [facility] of 00:00:00 [facility] TDAP 2019-11-29 Completed [facility] of 00:00:00 [place] [facility] TDAP 2019-11-29 Completed [facility] of 00:00:00 [place] [facility] TDAP 2019-11-29 Completed [facility] of 00:00:00 [place] [facility] TDAP 2019-11-29 Completed [facility] of 00:00:00 [facility] TDAP 2019-11-29 Completed University of 00:00:00 [facility] TDAP 2019-11-29 Completed University of 00:00:00 [facility] TDAP 2019-11-29 Completed University of 00:00:00 [facility] TDAP 2019-11-29 Completed University of 00:00:00 [facility] TDAP 2019-11-29 Completed University of 00:00:00 [facility] Influenza Virus 2019-06-08 Completed Universit y of [...] Branch TDAP 2016-09-05 Completed University of 00:00:00 [place] [facility] TDAP 2016-09-05 Completed [facility] of 00:00:00 [place] [facility] TDAP 2016-09-05 Completed [facility] of 00:00:00 [place] [facility] TDAP 2016-09-05 Completed [facility] of 00:00:00 [place] [facility] TDAP 2016-09-05 Completed [facility] of 00:00:00 [place] [facility] TDAP 2016-09-05 Completed [facility] of 00:00:00 [place] [facility] TDAP 2016-09-05 Completed [facility] of 00:00:00 [place] [facility] TDAP 2016-09-05 Completed [facility] of 00:00:00 [place] [facility] TDAP 2016-09-05 Completed [facility] of 00:00:00 [place] [facility] TDAP 2016-09-05 Completed [facility] of 00:00:00 [place] [facility] TDAP 2016-09-05 Completed [facility] of 00:00:00 [place] [facility] TDAP 2016-09-05 Completed [facility] of 00:00:00 [place] [facility] TDAP 2016-09-05 Completed [facility] of 00:00:00 [place] [facility] TDAP 2016-09-05 Completed [facility] of 00:00:00 [place] [facility] TDAP 2016-09-05 Completed [facility] of 00:00:00 [place] [facility] TDAP 2016-09-05 Completed [facility] of 00:00:00 [place] [facility] TDAP 2016-09-05 Completed [facility] of 00:00:00 [place] [facility] TDAP 2016-09-05 Completed [facility] of 00:00:00 [place] [facility] TDAP 2016-09-05 Completed [facility] of 00:00:00 [place] [facility] TDAP 2016-09-05 Completed [facility] of 00:00:00 [place] [facility] TDAP 2016-09-05 Completed [facility] of 00:00:00 [place] [facility] TDAP 2016-09-05 Completed [facility] of 00:00:00 [place] [facility] TDAP 2016-09-05 Completed [facility] of 00:00:00 [place] [facility] TDAP 2016-09-05 Completed [facility] of 00:00:00 [place] [facility] TDAP 2016-09-05 Completed [facility] of 00:00:00 [place] [facility] TDAP 2016-09-05 Completed University of 00:00:00 [facility] TDAP 2016-09-05 Completed [facility] of 00:00:00 [place] [facility] TDAP 2016-09-05 Completed University of 00:00:00 [place] [facility] TDAP 2016-09-05 Completed University of 00:00:00 [place] [facility] TDAP 2016-09-05 Completed [facility] of 00:00:00 [place] [facility] TDAP 2016-09-05 Completed [facility] of 00:00:00 [place] [facility] TDAP 2016-09-05 Completed [facility] of 00:00:00 [place] [facility] TDAP 2016-09-05 Completed [facility] of 00:00:00 [place] [facility] TDAP 2016-09-05 Completed [facility] of 00:00:00 [place] [facility] TDAP 2016-09-05 Completed [facility] of 00:00:00 [place] [facility] TDAP 2016-09-05 Completed [facility] of 00:00:00 [place] [facility] TDAP 2016-09-05 Completed [facility] of 00:00:00 [place] [facility] TDAP 2016-09-05 Completed [facility] of 00:00:00 [place] [facility] TDAP 2016-09-05 Completed [facility] of 00:00:00 [place] [facility] TDAP 2016-09-05 Completed [facility] of 00:00:00 [place] [facility] TDAP 2016-09-05 Completed [facility] of 00:00:00 [place] [facility] TDAP 2016-09-05 Completed [facility] of 00:00:00 [place] [facility] TDAP 2016-09-05 Completed [facility] of 00:00:00 [place] [facility] TDAP 2016-09-05 Completed [facility] of 00:00:00 [place] [facility] TDAP 2016-09-05 Completed [facility] of 00:00:00 [place] [facility] TDAP 2016-09-05 Completed [facility] of 00:00:00 [place] [facility] TDAP 2016-09-05 Completed [facility] of 00:00:00 [place] [facility] TDAP 2016-09-05 Completed [facility] of 00:00:00 [place] [facility] TDAP 2016-09-05 Completed [facility] of 00:00:00 [place] [facility] TDAP 2016-09-05 Completed [facility] of 00:00:00 [place] [facility] TDAP 2016-09-05 Completed [facility] of 00:00:00 [place] [facility] TDAP 2016-09-05 Completed [facility] of 00:00:00 [place] [facility] TDAP 2016-09-05 Completed [facility] of 00:00:00 [facility] TDAP 2016-09-05 Completed University of 00:00:00 [facility] TDAP 2016-09-05 Completed University of 00:00:00 [facility] TDAP 2016-09-05 Completed University of 00:00:00 [facility] TDAP 2016-09-05 Completed University of 00:00:00 [facility] TDAP 2016-09-05 Completed University of 00:00:00 [facility] TDAP 2016-09-05 Completed University of 00:00:00 [facility] Meningococcal 2008-11-10 Completed University of Polysaccharide 00:00:00 [place] [facility] (groups A, C, Y and Branc h W-135) conjugate vaccine (MCV4P) Proquad 2008-11-10 Completed University of (MMR/VARICELLA) 00:00:00 [facility] Meningococcal 2008-11-10 Completed University of Polysaccharide 00:00:00 [place] [facility] (groups A, C, Y and Branc h W-135) conjugate vaccine (MCV4P) Proquad 2008-11-10 Completed University of (MMR/VARICELLA) 00:00:00 [facility] Meningococcal 2008-11-10 Completed University of Polysaccharide 00:00:00 [place] [facility] (groups A, C, Y and Branc h W-135) conjugate vaccine (MCV4P) Proquad 2008-11-10 Completed University of (MMR/VARICELLA) 00:00:00 [facility] Meningococcal 2008-11-10 Completed University of Polysaccharide 00:00:00 [place] [facility] (groups A, C, Y and Branc h W-135) conjugate vaccine (MCV4P) Proquad 2008-11-10 Completed University of (MMR/VARICELLA) 00:00:00 [facility] Meningococcal 2008-11-10 Completed University of Polysaccharide 00:00:00 [place] [facility] (groups A, C, Y and Branc h W-135) conjugate vaccine (MCV4P) Proquad 2008-11-10 Completed University of (MMR/VARICELLA) 00:00:00 [facility] Meningococcal 2008-11-10 Completed University of Polysaccharide 00:00:00 [place] [facility] (groups A, C, Y and Branc h W-135) conjugate vaccine (MCV4P) Proquad 2008-11-10 Completed University of (MMR/VARICELLA) 00:00:00 [facility] Meningococcal 2008-11-10 Completed University of Polysaccharide 00:00:00 [place] [facility] (groups A, C, Y and Branc h W-135) conjugate vaccine (MCV4P) Proquad 2008-11-10 Completed University of (MMR/VARICELLA) 00:00:00 [facility] Meningococcal 2008-11-10 Completed University of Polysaccharide 00:00:00 [facility] antolin (groups A, C, Y and Branc h W-135) conjugate vaccine (MCV4P) Proquad 2008-11-10 Completed University of (MMR/VARICELLA) 00:00:00 [facility] Meningococcal 2008-11-10 Completed University of Polysaccharide 00:00:00 [facility] antolin (groups A, C, Y and Branc h W-135) conjugate vaccine (MCV4P) Proquad 2008-11-10 Completed University of (MMR/VARICELLA) 00:00:00 [facility] Meningococcal 2008-11-10 Completed University of Polysaccharide 00:00:00 [facility] antolin (groups A, C, Y and Branc h W-135) conjugate vaccine (MCV4P) Proquad 2008-11-10 Completed University of (MMR/VARICELLA) 00:00:00 [facility] Meningococcal 2008-11-10 Completed University of Polysaccharide 00:00:00 [facility] antolin (groups A, C, Y and Branc h W-135) conjugate vaccine (MCV4P) Proquad 2008-11-10 Completed University of (MMR/VARICELLA) 00:00:00 [facility] Meningococcal 2008-11-10 Completed University of Polysaccharide 00:00:00 [facility] antolin (groups A, C, Y and Branc h W-135) conjugate vaccine (MCV4P) Proquad 2008-11-10 Completed University of (MMR/VARICELLA) 00:00:00 [facility] Meningococcal 2008-11-10 Completed University of Polysaccharide 00:00:00 [facility] antolin (groups A, C, Y and Branc h W-135) conjugate vaccine (MCV4P) Proquad 2008-11-10 Completed University of (MMR/VARICELLA) 00:00:00 [facility] Meningococcal 2008-11-10 Completed University of Polysaccharide 00:00:00 [place] [facility] (groups A, C, Y and Branc h W-135) conjugate vaccine (MCV4P) Proquad 2008-11-10 Completed University of (MMR/VARICELLA) 00:00:00 [facility] Meningococcal 2008-11-10 Completed University of Polysaccharide 00:00:00 [facility] antolin (groups A, C, Y and Branc h W-135) conjugate vaccine (MCV4P) Proquad 2008-11-10 Completed [facility] (MMR/VARICELLA) 00:00:00 [facility] Meningococcal 2008-11-10 Completed [facility] Polysaccharide 00:00:00 [facility] antolin (groups A, C, Y and Branc h W-135) conjugate vaccine (MCV4P) Proquad 2008-11-10 Completed [facility] (MMR/VARICELLA) 00:00:00 [facility] Meningococcal 2008-11-10 Completed [facility] Polysaccharide 00:00:00 [facility] antolin (groups A, C, Y and Branc h W-135) conjugate vaccine (MCV4P) Proquad 2008-11-10 Completed [facility] (MMR/VARICELLA) 00:00:00 [facility] Meningococcal 2008-11-10 Completed [facility] Polysaccharide 00:00:00 [facility] antolin (groups A, C, Y and Branc h W-135) conjugate vaccine (MCV4P) Proquad 2008-11-10 Completed [facility] (MMR/VARICELLA) 00:00:00 [facility] Meningococcal 2008-11-10 Completed [facility] Polysaccharide 00:00:00 [facility] antolin (groups A, C, Y and Branc h W-135) conjugate vaccine (MCV4P) Proquad 2008-11-10 Completed [facility] (MMR/VARICELLA) 00:00:00 [facility] Meningococcal 2008-11-10 Completed [facility] Polysaccharide 00:00:00 [facility] antolin (groups A, C, Y and Branc h W-135) conjugate vaccine (MCV4P) Proquad 2008-11-10 Completed [facility] (MMR/VARICELLA) 00:00:00 [facility] Meningococcal 2008-11-10 Completed [facility] Polysaccharide 00:00:00 [facility] antolin (groups A, C, Y and Branc h W-135) conjugate vaccine (MCV4P) Proquad 2008-11-10 Completed [facility] (MMR/VARICELLA) 00:00:00 [facility] Meningococcal 2008-11-10 Completed [facility] Polysaccharide 00:00:00 [facility] (groups A, C, Y and Branc h W-135) conjugate vaccine (MCV4P) Proquad 2008-11-10 Completed [facility] (MMR/VARICELLA) 00:00:00 [facility] Meningococcal 2008-11-10 Completed [facility] Polysaccharide 00:00:00 [facility] (groups A, C, Y and Branc h W-135) conjugate vaccine (MCV4P) Proquad 2008-11-10 Completed [facility] (MMR/VARICELLA) 00:00:00 [facility] Meningococcal 2008-11-10 Completed [facility] Polysaccharide 00:00:00 [facility] (groups A, C, Y and Branc h W-135) conjugate vaccine (MCV4P) Proquad 2008-11-10 Completed [facility] (MMR/VARICELLA) 00:00:00 [facility] Meningococcal 2008-11-10 Completed [facility] Polysaccharide 00:00:00 [facility] antolin (groups A, C, Y and Branc h W-135) conjugate vaccine (MCV4P) Proquad 2008-11-10 Completed [facility] (MMR/VARICELLA) 00:00:00 [facility] Meningococcal 2008-11-10 Completed [facility] Polysaccharide 00:00:00 [facility] antolin (groups A, C, Y and Branc h W-135) conjugate vaccine (MCV4P) Proquad 2008-11-10 Completed [facility] (MMR/VARICELLA) 00:00:00 [facility] Meningococcal 2008-11-10 Completed [facility] Polysaccharide 00:00:00 [facility] antolin (groups A, C, Y and Branc h W-135) conjugate vaccine (MCV4P) Proquad 2008-11-10 Completed [facility] (MMR/VARICELLA) 00:00:00 [facility] Meningococcal 2008-11-10 Completed [facility] Polysaccharide 00:00:00 [facility] antolin (groups A, C, Y and Branc h W-135) conjugate vaccine (MCV4P) Proquad 2008-11-10 Completed [facility] (MMR/VARICELLA) 00:00:00 [facility] Meningococcal 2008-11-10 Completed [facility] Polysaccharide 00:00:00 [facility] antolin (groups A, C, Y and Branc h W-135) conjugate vaccine (MCV4P) Proquad 2008-11-10 Completed [facility] (MMR/VARICELLA) 00:00:00 [facility] Meningococcal 2008-11-10 Completed [facility] Polysaccharide 00:00:00 [facility] antolin (groups A, C, Y and Branc h W-135) conjugate vaccine (MCV4P) Proquad 2008-11-10 Completed [facility] (MMR/VARICELLA) 00:00:00 [facility] Meningococcal 2008-11-10 Completed [facility] Polysaccharide 00:00:00 [facility] antolin (groups A, C, Y and Branc h W-135) conjugate vaccine (MCV4P) Proquad 2008-11-10 Completed [facility] (MMR/VARICELLA) 00:00:00 [facility] Meningococcal 2008-11-10 Completed [facility] Polysaccharide 00:00:00 [facility] antolin (groups A, C, Y and Branc h W-135) conjugate vaccine (MCV4P) Proquad 2008-11-10 Completed [facility] (MMR/VARICELLA) 00:00:00 [facility] Meningococcal 2008-11-10 Completed [facility] Polysaccharide 00:00:00 [facility] antolin (groups A, C, Y and Branc h W-135) conjugate vaccine (MCV4P) Proquad 2008-11-10 Completed [facility] (MMR/VARICELLA) 00:00:00 [facility] Meningococcal 2008-11-10 Completed [facility] Polysaccharide 00:00:00 [facility] antolin (groups A, C, Y and Branc h W-135) conjugate vaccine (MCV4P) Proquad 2008-11-10 Completed [facility] (MMR/VARICELLA) 00:00:00 [facility] Meningococcal 2008-11-10 Completed [facility] Polysaccharide 00:00:00 [facility] antolin (groups A, C, Y and Branc h W-135) conjugate vaccine (MCV4P) Proquad 2008-11-10 Completed [facility] (MMR/VARICELLA) 00:00:00 [facility] Meningococcal 2008-11-10 Completed [facility] Polysaccharide 00:00:00 [facility] antolin (groups A, C, Y and Branc h W-135) conjugate vaccine (MCV4P) Proquad 2008-11-10 Completed [facility] (MMR/VARICELLA) 00:00:00 [facility] Meningococcal 2008-11-10 Completed [facility] Polysaccharide 00:00:00 [facility] (groups A, C, Y and Branc h W-135) conjugate vaccine (MCV4P) Proquad 2008-11-10 Completed [facility] (MMR/VARICELLA) 00:00:00 [facility] Meningococcal 2008-11-10 Completed [facility] Polysaccharide 00:00:00 [facility] (groups A, C, Y and Branc h W-135) conjugate vaccine (MCV4P) Proquad 2008-11-10 Completed [facility] (MMR/VARICELLA) 00:00:00 [facility] Meningococcal 2008-11-10 Completed [facility] Polysaccharide 00:00:00 [facility] (groups A, C, Y and Branc h W-135) conjugate vaccine (MCV4P) Proquad 2008-11-10 Completed [facility] (MMR/VARICELLA) 00:00:00 [facility] Meningococcal 2008-11-10 Completed [facility] Polysaccharide 00:00:00 [facility] (groups A, C, Y and Branc h W-135) conjugate vaccine (MCV4P) Proquad 2008-11-10 Completed [facility] (MMR/VARICELLA) 00:00:00 [facility] Meningococcal 2008-11-10 Completed [facility] Polysaccharide 00:00:00 [facility] (groups A, C, Y and Branc h W-135) conjugate vaccine (MCV4P) Proquad 2008-11-10 Completed [facility] (MMR/VARICELLA) 00:00:00 [facility] Meningococcal 2008-11-10 Completed [facility] Polysaccharide 00:00:00 [facility] (groups A, C, Y and Branc h W-135) conjugate vaccine (MCV4P) Proquad 2008-11-10 Completed [facility] (MMR/VARICELLA) 00:00:00 [facility] Meningococcal 2008-11-10 Completed [facility] Polysaccharide 00:00:00 [facility] (groups A, C, Y and Branc h W-135) conjugate vaccine (MCV4P) Proquad 2008-11-10 Completed [facility] (MMR/VARICELLA) 00:00:00 [facility] Meningococcal 2008-11-10 Completed [facility] Polysaccharide 00:00:00 [facility] (groups A, C, Y and Branc h W-135) conjugate vaccine (MCV4P) Proquad 2008-11-10 Completed [facility] (MMR/VARICELLA) 00:00:00 [facility] Meningococcal 2008-11-10 Completed [facility] Polysaccharide 00:00:00 [facility] antolin (groups A, C, Y and Branc h W-135) conjugate vaccine (MCV4P) Proquad 2008-11-10 Completed [facility] (MMR/VARICELLA) 00:00:00 [facility] Meningococcal 2008-11-10 Completed [facility] Polysaccharide 00:00:00 [facility] antolin (groups A, C, Y and Branc h W-135) conjugate vaccine (MCV4P) Proquad 2008-11-10 Completed [facility] (MMR/VARICELLA) 00:00:00 [facility] Meningococcal 2008-11-10 Completed [facility] Polysaccharide 00:00:00 [facility] antolin (groups A, C, Y and Branc h W-135) conjugate vaccine (MCV4P) Proquad 2008-11-10 Completed [facility] (MMR/VARICELLA) 00:00:00 [facility] Meningococcal 2008-11-10 Completed [facility] Polysaccharide 00:00:00 [facility] antolin (groups A, C, Y and Branc h W-135) conjugate vaccine (MCV4P) Proquad 2008-11-10 Completed [facility] (MMR/VARICELLA) 00:00:00 [facility] Meningococcal 2008-11-10 Completed [facility] Polysaccharide 00:00:00 [facility] antolin (groups A, C, Y and Branc h W-135) conjugate vaccine (MCV4P) Proquad 2008-11-10 Completed [facility] (MMR/VARICELLA) 00:00:00 [facility] Meningococcal 2008-11-10 Completed [facility] Polysaccharide 00:00:00 [facility] antolin (groups A, C, Y and Branc h W-135) conjugate vaccine (MCV4P) Proquad 2008-11-10 Completed [facility] (MMR/VARICELLA) 00:00:00 [facility] Meningococcal 2008-11-10 Completed [facility] Polysaccharide 00:00:00 [facility] antolin (groups A, C, Y and Branc h W-135) conjugate vaccine (MCV4P) Proquad 2008-11-10 Completed [facility] (MMR/VARICELLA) 00:00:00 [facility] Meningococcal 2008-11-10 Completed [facility] Polysaccharide 00:00:00 [facility] antolin (groups A, C, Y and Branc h W-135) conjugate vaccine (MCV4P) Proquad 2008-11-10 Completed [facility] (MMR/VARICELLA) 00:00:00 [facility] Meningococcal 2008-11-10 Completed [facility] Polysaccharide 00:00:00 [facility] antolin (groups A, C, Y and Branc h W-135) conjugate vaccine (MCV4P) Proquad 2008-11-10 Completed [facility] (MMR/VARICELLA) 00:00:00 [facility] Meningococcal 2008-11-10 Completed [facility] Polysaccharide 00:00:00 [facility] antolin (groups A, C, Y and Branc h W-135) conjugate vaccine (MCV4P) Proquad 2008-11-10 Completed [facility] (MMR/VARICELLA) 00:00:00 [facility] Meningococcal 2008-11-10 Completed [facility] Polysaccharide 00:00:00 [facility] antolin (groups A, C, Y and Branc h W-135) conjugate vaccine (MCV4P) Proquad 2008-11-10 Completed [facility] (MMR/VARICELLA) 00:00:00 [facility] Meningococcal 2008-11-10 Completed [facility] Polysaccharide 00:00:00 [facility] antolin (groups A, C, Y and Branc h W-135) conjugate vaccine (MCV4P) Proquad 2008-11-10 Completed [facility] (MMR/VARICELLA) 00:00:00 [facility] Meningococcal 2008-11-10 Completed [facility] Polysaccharide 00:00:00 [facility] antolin (groups A, C, Y and Branc h W-135) conjugate vaccine (MCV4P) Proquad 2008-11-10 Completed [facility] (MMR/VARICELLA) 00:00:00 [facility] Meningococcal 2008-11-10 Completed [facility] Polysaccharide 00:00:00 [facility] antolin (groups A, C, Y and Branc h W-135) conjugate vaccine (MCV4P) Proquad 2008-11-10 Completed [facility] (MMR/VARICELLA) 00:00:00 [facility] Meningococcal 2008-11-10 Completed [facility] Polysaccharide 00:00:00 [facility] antolin (groups A, C, Y and Branc h W-135) conjugate vaccine (MCV4P) Proquad 2008-11-10 Completed [facility] (MMR/VARICELLA) 00:00:00 [facility] Proquad 2006-03-24 Completed [facility] (MMR/VARICELLA) 00:00:00 [facility] Proquad 2006-03-24 Completed [facility] (MMR/VARICELLA) 00:00:00 [facility] Proquad 2006-03-24 Completed [facility] (MMR/VARICELLA) 00:00:00 [facility] Proquad 2006-03-24 Completed [facility] (MMR/VARICELLA) 00:00:00 [facility] Proquad 2006-03-24 Completed [facility] (MMR/VARICELLA) 00:00:00 [facility] Proquad 2006-03-24 Completed [facility] (MMR/VARICELLA) 00:00:00 [facility] Proquad 2006-03-24 Completed [facility] (MMR/VARICELLA) 00:00:00 [facility] Proquad 2006-03-24 Completed [facility] (MMR/VARICELLA) 00:00:00 [facility] Proquad 2006-03-24 Completed [facility] (MMR/VARICELLA) 00:00:00 [facility] Proquad 2006-03-24 Completed [facility] (MMR/VARICELLA) 00:00:00 [facility] Proquad 2006-03-24 Completed [facility] (MMR/VARICELLA) 00:00:00 [facility] Proquad 2006-03-24 Completed [facility] (MMR/VARICELLA) 00:00:00 [facility] Proquad 2006-03-24 Completed [facility] (MMR/VARICELLA) 00:00:00 [facility] Proquad 2006-03-24 Completed [facility] (MMR/VARICELLA) 00:00:00 [facility] Proquad 2006-03-24 Completed [facility] (MMR/VARICELLA) 00:00:00 [facility] Proquad 2006-03-24 Completed [facility] (MMR/VARICELLA) 00:00:00 [facility] Proquad 2006-03-24 Completed [facility] (MMR/VARICELLA) 00:00:00 [facility] Proquad 2006-03-24 Completed [facility] (MMR/VARICELLA) 00:00:00 [facility] Proquad 2006-03-24 Completed [facility] (MMR/VARICELLA) 00:00:00 [facility] Proquad 2006-03-24 Completed [facility] (MMR/VARICELLA) 00:00:00 [facility] Proquad 2006-03-24 Completed [facility] (MMR/VARICELLA) 00:00:00 [facility] Proquad 2006-03-24 Completed [facility] (MMR/VARICELLA) 00:00:00 [facility] Proquad 2006-03-24 Completed [facility] (MMR/VARICELLA) 00:00:00 [facility] Proquad 2006-03-24 Completed [facility] (MMR/VARICELLA) 00:00:00 [facility] Proquad 2006-03-24 Completed [facility] (MMR/VARICELLA) 00:00:00 [facility] Proquad 2006-03-24 Completed [facility] (MMR/VARICELLA) 00:00:00 [facility] Proquad 2006-03-24 Completed [facility] (MMR/VARICELLA) 00:00:00 [facility] Proquad 2006-03-24 Completed [facility] (MMR/VARICELLA) 00:00:00 [facility] Proquad 2006-03-24 Completed [facility] (MMR/VARICELLA) 00:00:00 [facility] Proquad 2006-03-24 Completed [facility] (MMR/VARICELLA) 00:00:00 [facility] Proquad 2006-03-24 Completed [facility] (MMR/VARICELLA) 00:00:00 [facility] Proquad 2006-03-24 Completed [facility] (MMR/VARICELLA) 00:00:00 [facility] Proquad 2006-03-24 Completed [facility] (MMR/VARICELLA) 00:00:00 [facility] Proquad 2006-03-24 Completed [facility] (MMR/VARICELLA) 00:00:00 [facility] Proquad 2006-03-24 Completed [facility] (MMR/VARICELLA) 00:00:00 [facility] Proquad 2006-03-24 Completed [facility] (MMR/VARICELLA) 00:00:00 [facility] Proquad 2006-03-24 Completed [facility] (MMR/VARICELLA) 00:00:00 [facility] Proquad 2006-03-24 Completed [facility] (MMR/VARICELLA) 00:00:00 [facility] Proquad 2006-03-24 Completed [facility] (MMR/VARICELLA) 00:00:00 [facility] Proquad 2006-03-24 Completed [facility] (MMR/VARICELLA) 00:00:00 [facility] Proquad 2006-03-24 Completed [facility] (MMR/VARICELLA) 00:00:00 [facility] Proquad 2006-03-24 Completed [facility] (MMR/VARICELLA) 00:00:00 [facility] Proquad 2006-03-24 Completed [facility] (MMR/VARICELLA) 00:00:00 [facility] Proquad 2006-03-24 Completed [facility] (MMR/VARICELLA) 00:00:00 [facility] Proquad 2006-03-24 Completed [facility] (MMR/VARICELLA) 00:00:00 [facility] Proquad 2006-03-24 Completed [facility] (MMR/VARICELLA) 00:00:00 [facility] Proquad 2006-03-24 Completed [facility] (MMR/VARICELLA) 00:00:00 [facility] Proquad 2006-03-24 Completed [facility] (MMR/VARICELLA) 00:00:00 [facility] Proquad 2006-03-24 Completed [facility] (MMR/VARICELLA) 00:00:00 [facility] Proquad 2006-03-24 Completed [facility] (MMR/VARICELLA) 00:00:00 [facility] Proquad 2006-03-24 Completed [facility] (MMR/VARICELLA) 00:00:00 [facility] Proquad 2006-03-24 Completed [facility] (MMR/VARICELLA) 00:00:00 [facility] Proquad 2006-03-24 Completed [facility] (MMR/VARICELLA) 00:00:00 [facility] Proquad 2006-03-24 Completed [facility] (MMR/VARICELLA) 00:00:00 [facility] Proquad 2006-03-24 Completed [facility] (MMR/VARICELLA) 00:00:00 [facility] Proquad 2006-03-24 Completed [facility] (MMR/VARICELLA) 00:00:00 [facility] Proquad 2006-03-24 Completed [facility] (MMR/VARICELLA) 00:00:00 [facility] Proquad 2006-03-24 Completed [facility] (MMR/VARICELLA) 00:00:00 [facility] Proquad 2006-03-24 Completed [facility] (MMR/VARICELLA) 00:00:00 [facility] Polio (IPV/OPV) 2002-03-08 Completed [facility] 00:00:00 [facility] Polio (IPV/OPV) 2002-03-08 Completed [facility] 00:00:00 [facility] Polio (IPV/OPV) 2002-03-08 Completed [facility] 00:00:00 [facility] Polio (IPV/OPV) 2002-03-08 Completed [facility] 00:00:00 [facility] Polio (IPV/OPV) 2002-03-08 Completed [facility] 00:00:00 [facility] Polio (IPV/OPV) 2002-03-08 Completed [facility] 00:00:00 [facility] Polio (IPV/OPV) 2002-03-08 Completed [facility] 00:00:00 [facility] Polio (IPV/OPV) 2002-03-08 Completed [facility] 00:00:00 [facility] Polio (IPV/OPV) 2002-03-08 Completed [facility] 00:00:00 [facility] Polio (IPV/OPV) 2002-03-08 Completed [facility] 00:00:00 [facility] Polio (IPV/OPV) 2002-03-08 Completed [facility] 00:00:00 [facility] Polio (IPV/OPV) 2002-03-08 Completed [facility] 00:00:00 [facility] Polio (IPV/OPV) 2002-03-08 Completed [facility] 00:00:00 [facility] Polio (IPV/OPV) 2002-03-08 Completed [facility] 00:00:00 [facility] Polio (IPV/OPV) 2002-03-08 Completed [facility] 00:00:00 [facility] Polio (IPV/OPV) 2002-03-08 Completed [facility] 00:00:00 [facility] Polio (IPV/OPV) 2002-03-08 Completed [facility] 00:00:00 [facility] Polio (IPV/OPV) 2002-03-08 Completed [facility] 00:00:00 [facility] Polio (IPV/OPV) 2002-03-08 Completed [facility] 00:00:00 [facility] Polio (IPV/OPV) 2002-03-08 Completed [facility] 00:00:00 [facility] Polio (IPV/OPV) 2002-03-08 Completed [facility] 00:00:00 [facility] Polio (IPV/OPV) 2002-03-08 Completed [facility] 00:00:00 [facility] Polio (IPV/OPV) 2002-03-08 Completed [facility] 00:00:00 [facility] Polio (IPV/OPV) 2002-03-08 Completed [facility] 00:00:00 [facility] Polio (IPV/OPV) 2002-03-08 Completed [facility] 00:00:00 [facility] Polio (IPV/OPV) 2002-03-08 Completed [facility] 00:00:00 [facility] Polio (IPV/OPV) 2002-03-08 Completed [facility] 00:00:00 [facility] Polio (IPV/OPV) 2002-03-08 Completed [facility] 00:00:00 [facility] Polio (IPV/OPV) 2002-03-08 Completed [facility] 00:00:00 [facility] Polio (IPV/OPV) 2002-03-08 Completed [facility] 00:00:00 [facility] Polio (IPV/OPV) 2002-03-08 Completed [facility] 00:00:00 [facility] Polio (IPV/OPV) 2002-03-08 Completed [facility] 00:00:00 [facility] Polio (IPV/OPV) 2002-03-08 Completed [facility] 00:00:00 [facility] Polio (IPV/OPV) 2002-03-08 Completed [facility] 00:00:00 [facility] Polio (IPV/OPV) 2002-03-08 Completed [facility] 00:00:00 [facility] Polio (IPV/OPV) 2002-03-08 Completed [facility] 00:00:00 [facility] Polio (IPV/OPV) 2002-03-08 Completed [facility] 00:00:00 [facility] Polio (IPV/OPV) 2002-03-08 Completed [facility] 00:00:00 [facility] Polio (IPV/OPV) 2002-03-08 Completed [facility] 00:00:00 [facility] Polio (IPV/OPV) 2002-03-08 Completed [facility] 00:00:00 [facility] Polio (IPV/OPV) 2002-03-08 Completed [facility] 00:00:00 [facility] Polio (IPV/OPV) 2002-03-08 Completed [facility] 00:00:00 [facility] Polio (IPV/OPV) 2002-03-08 Completed [facility] 00:00:00 [facility] Polio (IPV/OPV) 2002-03-08 Completed [facility] 00:00:00 [facility] Polio (IPV/OPV) 2002-03-08 Completed [facility] 00:00:00 [facility] Polio (IPV/OPV) 2002-03-08 Completed [facility] 00:00:00 [facility] Polio (IPV/OPV) 2002-03-08 Completed [facility] 00:00:00 [facility] Polio (IPV/OPV) 2002-03-08 Completed [facility] 00:00:00 [facility] Polio (IPV/OPV) 2002-03-08 Completed [facility] 00:00:00 [facility] Polio (IPV/OPV) 2002-03-08 Completed [facility] 00:00:00 [facility] Polio (IPV/OPV) 2002-03-08 Completed [facility] 00:00:00 [facility] Polio (IPV/OPV) 2002-03-08 Completed [facility] 00:00:00 [facility] Polio (IPV/OPV) 2002-03-08 Completed [facility] 00:00:00 [facility] Polio (IPV/OPV) 2002-03-08 Completed [facility] 00:00:00 [facility] Polio (IPV/OPV) 2002-03-08 Completed [facility] 00:00:00 [facility] Polio (IPV/OPV) 2002-03-08 Completed [facility] 00:00:00 [facility] Polio (IPV/OPV) 2002-03-08 Completed [facility] 00:00:00 [facility] Polio (IPV/OPV) 2002-03-08 Completed [facility] 00:00:00 [facility] Polio (IPV/OPV) 2002-03-08 Completed [facility] 00:00:00 [facility] Polio (IPV/OPV) 1998-06-08 Completed [facility] 00:00:00 [facility] Polio (IPV/OPV) 1998-06-08 Completed [facility] 00:00:00 [facility] Polio (IPV/OPV) 1998-06-08 Completed [facility] 00:00:00 [facility] Polio (IPV/OPV) 1998-06-08 Completed [facility] 00:00:00 [facility] Polio (IPV/OPV) 1998-06-08 Completed [facility] 00:00:00 [facility] Polio (IPV/OPV) 1998-06-08 Completed [facility] 00:00:00 [facility] Polio (IPV/OPV) 1998-06-08 Completed [facility] 00:00:00 [facility] Polio (IPV/OPV) 1998-06-08 Completed [facility] 00:00:00 [facility] Polio (IPV/OPV) 1998-06-08 Completed [facility] 00:00:00 [facility] Polio (IPV/OPV) 1998-06-08 Completed [facility] 00:00:00 [facility] Polio (IPV/OPV) 1998-06-08 Completed [facility] 00:00:00 [facility] Polio (IPV/OPV) 1998-06-08 Completed [facility] 00:00:00 [facility] Polio (IPV/OPV) 1998-06-08 Completed [facility] 00:00:00 [facility] Polio (IPV/OPV) 1998-06-08 Completed [facility] 00:00:00 [facility] Polio (IPV/OPV) 1998-06-08 Completed [facility] 00:00:00 [facility] Polio (IPV/OPV) 1998-06-08 Completed [facility] 00:00:00 [facility] Polio (IPV/OPV) 1998-06-08 Completed [facility] 00:00:00 [facility] Polio (IPV/OPV) 1998-06-08 Completed [facility] 00:00:00 [facility] Polio (IPV/OPV) 1998-06-08 Completed [facility] 00:00:00 [facility] Polio (IPV/OPV) 1998-06-08 Completed [facility] 00:00:00 [facility] Polio (IPV/OPV) 1998-06-08 Completed [facility] 00:00:00 [facility] Polio (IPV/OPV) 1998-06-08 Completed [facility] 00:00:00 [facility] Polio (IPV/OPV) 1998-06-08 Completed [facility] 00:00:00 [facility] Polio (IPV/OPV) 1998-06-08 Completed [facility] 00:00:00 [facility] Polio (IPV/OPV) 1998-06-08 Completed [facility] 00:00:00 [facility] Polio (IPV/OPV) 1998-06-08 Completed [facility] 00:00:00 [facility] Polio (IPV/OPV) 1998-06-08 Completed [facility] 00:00:00 [facility] Polio (IPV/OPV) 1998-06-08 Completed [facility] 00:00:00 [facility] Polio (IPV/OPV) 1998-06-08 Completed [facility] 00:00:00 [facility] Polio (IPV/OPV) 1998-06-08 Completed [facility] 00:00:00 [facility] Polio (IPV/OPV) 1998-06-08 Completed [facility] 00:00:00 [facility] Polio (IPV/OPV) 1998-06-08 Completed [facility] 00:00:00 [facility] Polio (IPV/OPV) 1998-06-08 Completed [facility] 00:00:00 [facility] Polio (IPV/OPV) 1998-06-08 Completed [facility] 00:00:00 [facility] Polio (IPV/OPV) 1998-06-08 Completed [facility] 00:00:00 [facility] Polio (IPV/OPV) 1998-06-08 Completed [facility] 00:00:00 [facility] Polio (IPV/OPV) 1998-06-08 Completed [facility] 00:00:00 [facility] Polio (IPV/OPV) 1998-06-08 Completed [facility] 00:00:00 [facility] Polio (IPV/OPV) 1998-06-08 Completed [facility] 00:00:00 [facility] Polio (IPV/OPV) 1998-06-08 Completed [facility] 00:00:00 [facility] Polio (IPV/OPV) 1998-06-08 Completed [facility] 00:00:00 [facility] Polio (IPV/OPV) 1998-06-08 Completed [facility] 00:00:00 [facility] Polio (IPV/OPV) 1998-06-08 Completed [facility] 00:00:00 [facility] Polio (IPV/OPV) 1998-06-08 Completed [facility] 00:00:00 [facility] Polio (IPV/OPV) 1998-06-08 Completed [facility] 00:00:00 [facility] Polio (IPV/OPV) 1998-06-08 Completed [facility] 00:00:00 [facility] Polio (IPV/OPV) 1998-06-08 Completed [facility] 00:00:00 [facility] Polio (IPV/OPV) 1998-06-08 Completed [facility] 00:00:00 [facility] Polio (IPV/OPV) 1998-06-08 Completed [facility] 00:00:00 [facility] Polio (IPV/OPV) 1998-06-08 Completed [facility] 00:00:00 [facility] Polio (IPV/OPV) 1998-06-08 Completed [facility] 00:00:00 [facility] Polio (IPV/OPV) 1998-06-08 Completed [facility] 00:00:00 [facility] Polio (IPV/OPV) 1998-06-08 Completed [facility] 00:00:00 [facility] Polio (IPV/OPV) 1998-06-08 Completed [facility] 00:00:00 [facility] Polio (IPV/OPV) 1998-06-08 Completed [facility] 00:00:00 [facility] Polio (IPV/OPV) 1998-06-08 Completed [facility] 00:00:00 [facility] Polio (IPV/OPV) 1998-06-08 Completed [facility] 00:00:00 [facility] Polio (IPV/OPV) 1998-06-08 Completed [facility] 00:00:00 [facility] Polio (IPV/OPV) 1998-06-08 Completed [facility] 00:00:00 [facility] Hep B, Adol or Pedi 1997-04-05 Completed [facility] Dosage 00:00:00 [facility] Meningococcal 1997-04-05 Completed [facility] Polysaccharide 00:00:00 [facility] (groups A, C, Y and Branc h W-135) conjugate vaccine (MCV4P) Proquad 1997-04-05 Completed [facility] (MMR/VARICELLA) 00:00:00 [facility] Hep B, Adol or Pedi 1997-04-05 Completed [facility] Dosage 00:00:00 [facility] Meningococcal 1997-04-05 Completed [facility] Polysaccharide 00:00:00 [facility] (groups A, C, Y and Branc h W-135) conjugate vaccine (MCV4P) Proquad 1997-04-05 Completed [facility] (MMR/VARICELLA) 00:00:00 [facility] Hep B, Adol or Pedi 1997-04-05 Completed [facility] Dosage 00:00:00 [facility] Meningococcal 1997-04-05 Completed [facility] Polysaccharide 00:00:00 [facility] (groups A, C, Y and Branc h W-135) conjugate vaccine (MCV4P) Proquad 1997-04-05 Completed [facility] (MMR/VARICELLA) 00:00:00 [facility] Hep B, Adol or Pedi 1997-04-05 Completed [facility] Dosage 00:00:00 [facility] Meningococcal 1997-04-05 Completed [facility] Polysaccharide 00:00:00 [facility] (groups A, C, Y and Branc h W-135) conjugate vaccine (MCV4P) Proquad 1997-04-05 Completed [facility] (MMR/VARICELLA) 00:00:00 [facility] Hep B, Adol or Pedi 1997-04-05 Completed [facility] Dosage 00:00:00 [facility] Meningococcal 1997-04-05 Completed [facility] Polysaccharide 00:00:00 [facility] (groups A, C, Y and Branc h W-135) conjugate vaccine (MCV4P) Proquad 1997-04-05 Completed [facility] (MMR/VARICELLA) 00:00:00 [facility] Hep B, Adol or Pedi 1997-04-05 Completed [facility] Dosage 00:00:00 [facility] Meningococcal 1997-04-05 Completed [facility] Polysaccharide 00:00:00 [facility] (groups A, C, Y and Branc h W-135) conjugate vaccine (MCV4P) Proquad 1997-04-05 Completed [facility] (MMR/VARICELLA) 00:00:00 [facility] Hep B, Adol or Pedi 1997-04-05 Completed [facility] Dosage 00:00:00 [facility] Meningococcal 1997-04-05 Completed [facility] Polysaccharide 00:00:00 [facility] (groups A, C, Y and Branc h W-135) conjugate vaccine (MCV4P) Proquad 1997-04-05 Completed [facility] (MMR/VARICELLA) 00:00:00 [facility] Hep B, Adol or Pedi 1997-04-05 Completed [facility] Dosage 00:00:00 [facility] Meningococcal 1997-04-05 Completed [facility] Polysaccharide 00:00:00 [facility] (groups A, C, Y and Branc h W-135) conjugate vaccine (MCV4P) Proquad 1997-04-05 Completed [facility] (MMR/VARICELLA) 00:00:00 [facility] Hep B, Adol or Pedi 1997-04-05 Completed [facility] Dosage 00:00:00 [facility] Meningococcal 1997-04-05 Completed [facility] Polysaccharide 00:00:00 [facility] (groups A, C, Y and Branc h W-135) conjugate vaccine (MCV4P) Proquad 1997-04-05 Completed [facility] (MMR/VARICELLA) 00:00:00 [facility] Hep B, Adol or Pedi 1997-04-05 Completed [facility] Dosage 00:00:00 [facility] Meningococcal 1997-04-05 Completed [facility] Polysaccharide 00:00:[address] [facility] antolin (groups A, C, Y and Branc h W-135) conjugate vaccine (MCV4P) Proquad 1997-04-05 Completed [facility] (MMR/VARICELLA) 00:00:00 [facility] Hep B, Adol or Pedi 1997-04-05 Completed [facility] Dosage 00:00:00 [facility] Meningococcal 1997-04-05 Completed [facility] Polysaccharide 00:00:00 [facility] (groups A, C, Y and Branc h W-135) conjugate vaccine (MCV4P) Proquad 1997-04-05 Completed [facility] (MMR/VARICELLA) 00:00:00 [facility] Hep B, Adol or Pedi 1997-04-05 Completed [facility] Dosage 00:00:00 [facility] Meningococcal 1997-04-05 Completed [facility] Polysaccharide 00:00:00 [facility] (groups A, C, Y and Branc h W-135) conjugate vaccine (MCV4P) Proquad 1997-04-05 Completed [facility] (MMR/VARICELLA) 00:00:00 [facility] Hep B, Adol or Pedi 1997-04-05 Completed [facility] Dosage 00:00:00 [facility] Meningococcal 1997-04-05 Completed [facility] Polysaccharide 00:00:[address] [facility] antolin (groups A, C, Y and Branc h W-135) conjugate vaccine (MCV4P) Proquad 1997-04-05 Completed [facility] (MMR/VARICELLA) 00:00:00 [facility] Hep B, Adol or Pedi 1997-04-05 Completed [facility] Dosage 00:00:00 [facility] Meningococcal 1997-04-05 Completed [facility] Polysaccharide 00:00:00 [facility] antolin (groups A, C, Y and Branc h W-135) conjugate vaccine (MCV4P) Proquad 1997-04-05 Completed [facility] (MMR/VARICELLA) 00:00:00 [facility] Hep B, Adol or Pedi 1997-04-05 Completed [facility] Dosage 00:00:00 [facility] Meningococcal 1997-04-05 Completed [facility] Polysaccharide 00:00:00 [facility] (groups A, C, Y and Branc h W-135) conjugate vaccine (MCV4P) Proquad 1997-04-05 Completed [facility] (MMR/VARICELLA) 00:00:00 [facility] Hep B, Adol or Pedi 1997-04-05 Completed [facility] Dosage 00:00:00 [facility] Meningococcal 1997-04-05 Completed [facility] Polysaccharide 00:00:00 [facility] (groups A, C, Y and Branc h W-135) conjugate vaccine (MCV4P) Proquad 1997-04-05 Completed [facility] (MMR/VARICELLA) 00:00:00 [facility] Hep B, Adol or Pedi 1997-04-05 Completed [facility] Dosage 00:00:00 [facility] Meningococcal 1997-04-05 Completed [facility] Polysaccharide 00:00:00 [facility] (groups A, C, Y and Branc h W-135) conjugate vaccine (MCV4P) Proquad 1997-04-05 Completed [facility] (MMR/VARICELLA) 00:00:00 [facility] Hep B, Adol or Pedi 1997-04-05 Completed [facility] Dosage 00:00:00 [facility] Meningococcal 1997-04-05 Completed [facility] Polysaccharide 00:00:00 [facility] (groups A, C, Y and Branc h W-135) conjugate vaccine (MCV4P) Proquad 1997-04-05 Completed [facility] (MMR/VARICELLA) 00:00:00 [facility] Hep B, Adol or Pedi 1997-04-05 Completed [facility] Dosage 00:00:00 [facility] Meningococcal 1997-04-05 Completed [facility] Polysaccharide 00:00:00 [facility] (groups A, C, Y and Branc h W-135) conjugate vaccine (MCV4P) Proquad 1997-04-05 Completed [facility] (MMR/VARICELLA) 00:00:00 [facility] Hep B, Adol or Pedi 1997-04-05 Completed [facility] Dosage 00:00:00 [facility] Meningococcal 1997-04-05 Completed [facility] Polysaccharide 00:00:00 [facility] (groups A, C, Y and Branc h W-135) conjugate vaccine (MCV4P) Proquad 1997-04-05 Completed [facility] (MMR/VARICELLA) 00:00:00 [facility] Hep B, Adol or Pedi 1997-04-05 Completed [facility] Dosage 00:00:00 [facility] Meningococcal 1997-04-05 Completed [facility] Polysaccharide 00:00:00 [facility] (groups A, C, Y and Branc h W-135) conjugate vaccine (MCV4P) Proquad 1997-04-05 Completed [facility] (MMR/VARICELLA) 00:00:00 [facility] Hep B, Adol or Pedi 1997-04-05 Completed [facility] Dosage 00:00:00 [facility] Meningococcal 1997-04-05 Completed [facility] Polysaccharide 00:00:00 [facility] (groups A, C, Y and Branc h W-135) conjugate vaccine (MCV4P) Proquad 1997-04-05 Completed [facility] (MMR/VARICELLA) 00:00:00 [facility] Hep B, Adol or Pedi 1997-04-05 Completed [facility] Dosage 00:00:00 [facility] Meningococcal 1997-04-05 Completed [facility] Polysaccharide 00:00:00 [facility] (groups A, C, Y and Branc h W-135) conjugate vaccine (MCV4P) Proquad 1997-04-05 Completed [facility] (MMR/VARICELLA) 00:00:00 [facility] Hep B, Adol or Pedi 1997-04-05 Completed [facility] Dosage 00:00:00 [facility] Meningococcal 1997-04-05 Completed [facility] Polysaccharide 00:00:00 [facility] (groups A, C, Y and Branc h W-135) conjugate vaccine (MCV4P) Proquad 1997-04-05 Completed [facility] (MMR/VARICELLA) 00:00:00 [facility] Hep B, Adol or Pedi 1997-04-05 Completed [facility] Dosage 00:00:00 [facility] Meningococcal 1997-04-05 Completed [facility] Polysaccharide 00:00:00 [facility] (groups A, C, Y and Branc h W-135) conjugate vaccine (MCV4P) Proquad 1997-04-05 Completed [facility] (MMR/VARICELLA) 00:00:00 [facility] Hep B, Adol or Pedi 1997-04-05 Completed [facility] Dosage 00:00:00 [facility] Meningococcal 1997-04-05 Completed [facility] Polysaccharide 00:00:00 [facility] (groups A, C, Y and Branc h W-135) conjugate vaccine (MCV4P) Proquad 1997-04-05 Completed [facility] (MMR/VARICELLA) 00:00:00 [facility] Hep B, Adol or Pedi 1997-04-05 Completed [facility] Dosage 00:00:00 [facility] Meningococcal 1997-04-05 Completed [facility] Polysaccharide 00:00:00 [facility] (groups A, C, Y and Branc h W-135) conjugate vaccine (MCV4P) Proquad 1997-04-05 Completed [facility] (MMR/VARICELLA) 00:00:00 [facility] Hep B, Adol or Pedi 1997-04-05 Completed [facility] Dosage 00:00:00 [facility] Meningococcal 1997-04-05 Completed [facility] Polysaccharide 00:00:00 [facility] (groups A, C, Y and Branc h W-135) conjugate vaccine (MCV4P) Proquad 1997-04-05 Completed [facility] (MMR/VARICELLA) 00:00:00 [facility] Hep B, Adol or Pedi 1997-04-05 Completed [facility] Dosage 00:00:00 [facility] Meningococcal 1997-04-05 Completed [facility] Polysaccharide 00:00:00 [facility] (groups A, C, Y and Branc h W-135) conjugate vaccine (MCV4P) Proquad 1997-04-05 Completed [facility] (MMR/VARICELLA) 00:00:00 [facility] Hep B, Adol or Pedi 1997-04-05 Completed [facility] Dosage 00:00:00 [facility] Meningococcal 1997-04-05 Completed [facility] Polysaccharide 00:00:00 [facility] (groups A, C, Y and Branc h W-135) conjugate vaccine (MCV4P) Proquad 1997-04-05 Completed [facility] (MMR/VARICELLA) 00:00:00 [facility] Hep B, Adol or Pedi 1997-04-05 Completed [facility] Dosage 00:00:00 [facility] Meningococcal 1997-04-05 Completed [facility] Polysaccharide 00:00:00 [facility] (groups A, C, Y and Branc h W-135) conjugate vaccine (MCV4P) Proquad 1997-04-05 Completed [facility] (MMR/VARICELLA) 00:00:00 [facility] Hep B, Adol or Pedi 1997-04-05 Completed [facility] Dosage 00:00:00 [facility] Meningococcal 1997-04-05 Completed [facility] Polysaccharide 00:00:00 [facility] (groups A, C, Y and Branc h W-135) conjugate vaccine (MCV4P) Proquad 1997-04-05 Completed [facility] (MMR/VARICELLA) 00:00:00 [facility] Hep B, Adol or Pedi 1997-04-05 Completed [facility] Dosage 00:00:00 [facility] Meningococcal 1997-04-05 Completed [facility] Polysaccharide 00:00:00 [facility] (groups A, C, Y and Branc h W-135) conjugate vaccine (MCV4P) Proquad 1997-04-05 Completed [facility] (MMR/VARICELLA) 00:00:00 [facility] Hep B, Adol or Pedi 1997-04-05 Completed [facility] Dosage 00:00:00 [facility] Meningococcal 1997-04-05 Completed [facility] Polysaccharide 00:00:00 [facility] (groups A, C, Y and Branc h W-135) conjugate vaccine (MCV4P) Proquad 1997-04-05 Completed [facility] (MMR/VARICELLA) 00:00:00 [facility] Hep B, Adol or Pedi 1997-04-05 Completed [facility] Dosage 00:00:00 [facility] Meningococcal 1997-04-05 Completed [facility] Polysaccharide 00:00:00 [facility] (groups A, C, Y and Branc h W-135) conjugate vaccine (MCV4P) Proquad 1997-04-05 Completed [facility] (MMR/VARICELLA) 00:00:00 [facility] Hep B, Adol or Pedi 1997-04-05 Completed [facility] Dosage 00:00:00 [facility] Meningococcal 1997-04-05 Completed [facility] Polysaccharide 00:00:00 [facility] (groups A, C, Y and Branc h W-135) conjugate vaccine (MCV4P) Proquad 1997-04-05 Completed [facility] (MMR/VARICELLA) 00:00:00 [facility] Hep B, Adol or Pedi 1997-04-05 Completed [facility] Dosage 00:00:00 [facility] Meningococcal 1997-04-05 Completed [facility] Polysaccharide 00:00:00 [facility] (groups A, C, Y and Branc h W-135) conjugate vaccine (MCV4P) Proquad 1997-04-05 Completed [facility] (MMR/VARICELLA) 00:00:00 [facility] Hep B, Adol or Pedi 1997-04-05 Completed [facility] Dosage 00:00:00 [facility] Meningococcal 1997-04-05 Completed [facility] Polysaccharide 00:00:00 [facility] (groups A, C, Y and Branc h W-135) conjugate vaccine (MCV4P) Proquad 1997-04-05 Completed [facility] (MMR/VARICELLA) 00:00:00 [facility] Hep B, Adol or Pedi 1997-04-05 Completed [facility] Dosage 00:00:00 [facility] Meningococcal 1997-04-05 Completed [facility] Polysaccharide 00:00:00 [facility] (groups A, C, Y and Branc h W-135) conjugate vaccine (MCV4P) Proquad 1997-04-05 Completed [facility] (MMR/VARICELLA) 00:00:00 [facility] Hep B, Adol or Pedi 1997-04-05 Completed [facility] Dosage 00:00:00 [facility] Meningococcal 1997-04-05 Completed [facility] Polysaccharide 00:00:00 [facility] (groups A, C, Y and Branc h W-135) conjugate vaccine (MCV4P) Proquad 1997-04-05 Completed [facility] (MMR/VARICELLA) 00:00:00 [facility] Hep B, Adol or Pedi 1997-04-05 Completed [facility] Dosage 00:00:00 [facility] Meningococcal 1997-04-05 Completed [facility] Polysaccharide 00:00:00 [facility] (groups A, C, Y and Branc h W-135) conjugate vaccine (MCV4P) Proquad 1997-04-05 Completed [facility] (MMR/VARICELLA) 00:00:00 [facility] Hep B, Adol or Pedi 1997-04-05 Completed [facility] Dosage 00:00:00 [facility] Meningococcal 1997-04-05 Completed [facility] Polysaccharide 00:00:00 [facility] (groups A, C, Y and Branc h W-135) conjugate vaccine (MCV4P) Proquad 1997-04-05 Completed [facility] (MMR/VARICELLA) 00:00:00 [facility] Hep B, Adol or Pedi 1997-04-05 Completed [facility] Dosage 00:00:00 [facility] Meningococcal 1997-04-05 Completed [facility] Polysaccharide 00:00:00 [facility] (groups A, C, Y and Branc h W-135) conjugate vaccine (MCV4P) Proquad 1997-04-05 Completed [facility] (MMR/VARICELLA) 00:00:00 [facility] Hep B, Adol or Pedi 1997-04-05 Completed [facility] of Dosage 00:00:00 [facility] Meningococcal 1997-04-05 Completed [facility] Polysaccharide 00:00:00 [facility] (groups A, C, Y and Branc h W-135) conjugate vaccine (MCV4P) Proquad 1997-04-05 Completed [facility] (MMR/VARICELLA) 00:00:00 [facility] Hep B, Adol or Pedi 1997-04-05 Completed [facility] Dosage 00:00:00 [facility] Meningococcal 1997-04-05 Completed [facility] Polysaccharide 00:00:00 [facility] (groups A, C, Y and Branc h W-135) conjugate vaccine (MCV4P) Proquad 1997-04-05 Completed [facility] (MMR/VARICELLA) 00:00:00 [facility] Hep B, Adol or Pedi 1997-04-05 Completed [facility] Dosage 00:00:00 [facility] Meningococcal 1997-04-05 Completed [facility] Polysaccharide 00:00:[address] [facility] antolin (groups A, C, Y and Branc h W-135) conjugate vaccine (MCV4P) Proquad 1997-04-05 Completed [facility] (MMR/VARICELLA) 00:00:00 [facility] Hep B, Adol or Pedi 1997-04-05 Completed [facility] Dosage 00:00:00 [facility] Meningococcal 1997-04-05 Completed [facility] Polysaccharide 00:00:00 [facility] (groups A, C, Y and Branc h W-135) conjugate vaccine (MCV4P) Proquad 1997-04-05 Completed [facility] (MMR/VARICELLA) 00:00:00 [facility] Hep B, Adol or Pedi 1997-04-05 Completed [facility] Dosage 00:00:00 [facility] [facility] Meningococcal 1997-04-05 Completed [facility] Polysaccharide 00:00:00 [facility] (groups A, C, Y and Branc h W-135) conjugate vaccine (MCV4P) Proquad 1997-04-05 Completed [facility] (MMR/VARICELLA) 00:00:00 [facility] Hep B, Adol or Pedi 1997-04-05 Completed [facility]ive [facility]ity of Dosage 00:00:00 [facility] Meningococcal 1997-04-05 Completed [facility] Polysaccharide 00:00:00 [facility] (groups A, C, Y and Branc h W-135) conjugate vaccine (MCV4P) Proquad 1997-04-05 Completed [facility] (MMR/VARICELLA) 00:00:00 [facility] Hep B, Adol or Pedi 1997-04-05 Completed [facility] of Dosage 00:00:00 [facility] Meningococcal 1997-04-05 Completed [facility] Polysaccharide 00:00:00 [facility] (groups A, C, Y and Branc h W-135) conjugate vaccine (MCV4P) Proquad 1997-04-05 Completed [facility] (MMR/VARICELLA) 00:00:00 [facility] Hep B, Adol or Pedi 1997-04-05 Completed [facility]ive [facility]ity [facility] Dosage 00:00:00 [facility] Meningococcal 1997-04-05 Completed [facility] Polysaccharide 00:00:00 [facility] (groups A, C, Y and Branc h W-135) conjugate vaccine (MCV4P) Proquad 1997-04-05 Completed [facility] (MMR/VARICELLA) 00:00:00 [facility] Hep B, Adol or Pedi 1997-04-05 Completed [facility]ive rsity of Dosage 00:00:00 [facility] Meningococcal 1997-04-05 Completed [facility] Polysaccharide 00:00:00 [facility] (groups A, C, Y and Branc h W-135) conjugate vaccine (MCV4P) Proquad 1997-04-05 Completed [facility] (MMR/VARICELLA) 00:00:00 [facility] Hep B, Adol or Pedi 1997-04-05 Completed [facility] Dosage 00:00:00 [facility] Meningococcal 1997-04-05 Completed [facility] Polysaccharide 00:00:00 [facility] (groups A, C, Y and Branc h W-135) conjugate vaccine (MCV4P) Proquad 1997-04-05 Completed [facility] (MMR/VARICELLA) 00:00:00 [facility] Hep B, Adol or Pedi 1997-04-05 Completed [facility]ive rsity of Dosage 00:00:00 [facility] Meningococcal 1997-04-05 Completed [facility] of Polysaccharide 00:00:00 [facility] antolin (groups A, C, Y and Branc h W-135) conjugate vaccine (MCV4P) Proquad 1997-04-05 Completed [facility] (MMR/VARICELLA) 00:00:00 [facility] Hep B, Adol or Pedi 1997-04-05 Completed [facility]ive rsity of Dosage 00:00:00 [facility] Meningococcal 1997-04-05 Completed [facility] Polysaccharide 00:00:00 [facility] (groups A, C, Y and Branc h W-135) conjugate vaccine (MCV4P) Proquad 1997-04-05 Completed [facility] (MMR/VARICELLA) 00:00:00 [facility] Hep B, Adol or Pedi 1997-04-05 Completed [facility]ive rsity of Dosage 00:00:00 [facility] Meningococcal 1997-04-05 Completed [facility] of Polysaccharide 00:00:00 [facility] antolin (groups A, C, Y and Branc h W-135) conjugate vaccine (MCV4P) Proquad 1997-04-05 Completed [facility] (MMR/VARICELLA) 00:00:00 [facility] Hep B, Adol or Pedi 1997-04-05 Completed [facility]ive rsity of Dosage 00:00:00 [facility] Meningococcal 1997-04-05 Completed [facility] of Polysaccharide 00:00:00 [facility] antolin (groups A, C, Y and Branc h W-135) conjugate vaccine (MCV4P) Proquad 1997-04-05 Completed [facility] (MMR/VARICELLA) 00:00:00 [facility] Hep B, Adol or Pedi 1997-04-05 Completed [facility]ive rsity of Dosage 00:00:00 [facility] Meningococcal 1997-04-05 Completed [facility] of Polysaccharide 00:00:00 [facility] (groups A, C, Y and Branc h W-135) conjugate vaccine (MCV4P) Proquad 1997-04-05 Completed [facility] (MMR/VARICELLA) 00:00:00 [facility] Hep B, Adol or Pedi 1997-04-05 Completed [facility]ive rsity of Dosage 00:00:00 [facility] Meningococcal 1997-04-05 Completed [facility] of Polysaccharide 00:00:00 [facility] antolin (groups A, C, Y and Branc h W-135) conjugate vaccine (MCV4P) Proquad 1997-04-05 Completed [facility] (MMR/VARICELLA) 00:00:00 [facility] HIB 3 Dose Schedule 1996 Completed Unive rsity of 00:00:00 [facility] Polio (IPV/OPV) 1996 Completed [facility] of 00:00:00 [facility] HIB 3 Dose Schedule 1996 Completed [facility]ive rsity of 00:00:00 [facility] Polio (IPV/OPV) 1996 Completed [facility] of 00:00:00 [facility] HIB 3 Dose Schedule 1996 Completed [facility]ive rsity of 00:00:00 [facility] Polio (IPV/OPV) 1996 Completed [facility] of 00:00:00 [facility] HIB 3 Dose Schedule 1996 Completed [facility]ive rsity of 00:00:00 [facility] Polio (IPV/OPV) 1996 Completed [facility] of 00:00:00 [facility] HIB 3 Dose Schedule 1996 Completed [facility]ive rsity of 00:00:00 [facility] Polio (IPV/OPV) 1996 Completed [facility] of 00:00:00 [facility] HIB 3 Dose Schedule 1996 Completed [facility]ive rsity of 00:00:00 [facility] Polio (IPV/OPV) 1996 Completed [facility] of 00:00:00 [facility] HIB 3 Dose Schedule 1996 Completed [facility]ive rsity of 00:00:00 [facility] Polio (IPV/OPV) 1996 Completed [facility] y of [...] (IPV/OPV) 1996 Completed [facility] of 00:00:00 [facility] HIB 3 Dose Schedule 1996 Completed [facility]ity of 00:00:00 [facility] Polio (IPV/OPV) 1996 Completed [facility] of 00:00:00 [facility] HIB 3 Dose Schedule 1996 Completed [facility]ity of 00:00:00 [facility] Polio (IPV/OPV) 1996 Completed [facility] of 00:00:00 [facility] HIB 3 Dose Schedule 1996 Completed [facility]ity of 00:00:00 [facility] Polio (IPV/OPV) 1996 Completed [facility] [...] (IPV/OPV) 1996 Completed [facility] of 00:00:00 [facility] HIB 3 Dose Schedule 1996 Completed [facility] rsity of 00:00:00 [facility] Polio (IPV/OPV) 1996 Completed [facility] of 00:00:00 [facility] HIB 3 Dose Schedule 1996 Completed [facility] rsity of 00:00:00 [facility] Polio (IPV/OPV) 1996 Completed [facility] of 00:00:00 [facility] HIB 3 Dose Schedule 1996 Completed [facility] rsity of 00:00:00 [facility] Polio (IPV/OPV) 1996 Completed [facility] of 00:00:00 [facility] HIB 3 Dose Schedule 1996 Completed [facility] rsity of 00:00:00 [facility] Polio (IPV/OPV) 1996 Completed [facility] of 00:00:00 [facility] HIB 3 Dose Schedule 1996 Completed [facility] rsity of 00:00:00 [facility] Polio (IPV/OPV) 1996 Completed [facility] of 00:00:00 [facility] HIB 3 Dose Schedule 1996 Completed [facility] rsity of 00:00:00 [facility] Polio (IPV/OPV) 1996 Completed [facility] of 00:00:00 [facility] HIB 3 Dose Schedule 1996 Completed [facility] of 00:00:00 [facility] Polio (IPV/OPV) 1996 Completed [facility] of 00:00:00 [facility] HIB 3 Dose Schedule 1996 Completed [facility] rs[facility] of 00:00:00 [facility] Polio (IPV/OPV) 1996 Completed [facility] of 00:00:00 [facility] HIB 3 Dose Schedule 1996 Completed [facility] rsity of 00:00:00 [facility] Polio (IPV/OPV) 1996 Completed [facility] of 00:00:00 [facility] HIB 3 Dose Schedule 1996 Completed [facility]ity of 00:00:00 [facility] Polio (IPV/OPV) 1996 Completed [facility] of 00:00:00 [facility] HIB 3 Dose Schedule 1996 Completed [facility] rsity of 00:00:00 [facility] Polio (IPV/OPV) 1996 Completed [facility] of 00:00:00 [facility] HIB 3 Dose Schedule 1996 Completed [facility] rsity of 00:00:00 [facility] Polio (IPV/OPV) 1996 Completed [facility] of 00:00:00 [facility] HIB 3 Dose Schedule 1996 Completed [facility] rsity of 00:00:00 [facility] Polio (IPV/OPV) 1996 Completed [facility] of 00:00:00 [facility] HIB 3 Dose Schedule 1996 Completed Unive rsity of 00:00:00 [facility] Polio (IPV/OPV) 1996 Completed [facility] of 00:00:00 [facility] HIB 3 Dose Schedule 1996 Completed [facility]ive rsity of 00:00:00 [facility] Polio (IPV/OPV) 1996 Completed [facility] of 00:00:00 [facility] HIB 3 Dose Schedule 1996 Completed Unive rsity of 00:00:00 [facility] Polio (IPV/OPV) 1996 Completed [facility] of 00:00:00 [facility] HIB 3 Dose Schedule 1996 Completed [facility]ive rsity of 00:00:00 [facility] Polio (IPV/OPV) 1996 Completed [facility] of 00:00:00 [facility] HIB 3 Dose Schedule 1996 Completed [facility]ity of 00:00:00 [facility] Polio (IPV/OPV) 1996 Completed [facility] of 00:00:00 [facility] HIB 3 Dose Schedule 1996 Completed [facility] rsity of 00:00:00 [facility] Polio (IPV/OPV) 1996 Completed [facility] of 00:00:00 [facility] HIB 3 Dose Schedule 1996 Completed Unive [...] Schedule 1996 Completed Unive rsity of 00:00:00 [facility] Polio (IPV/OPV) 1996 Completed [facility] of 00:00:00 [facility] HIB 3 Dose Schedule 1996 Completed [facility]ity of 00:00:00 [facility] Polio (IPV/OPV) 1996 Completed [facility] of 00:00:00 [facility] HIB 3 Dose Schedule 1996 Completed [facility]ity of 00:00:00 [facility] Polio (IPV/OPV) 1996 Completed [facility] of 00:00:00 [facility] HIB 3 Dose Schedule 1996 [...] (IPV/OPV) 1996 Completed [facility] of 00:00:00 [facility] HIB 3 Dose Schedule 1996 Completed [facility]ity of 00:00:00 [facility] Polio (IPV/OPV) 1996 Completed [facility] of 00:00:00 [facility] HIB 3 Dose Schedule 1996 Completed [facility]ive [facility]ity of 00:00:00 [facility] Polio (IPV/OPV) 1996 Completed [facility] of 00:00:00 [facility] HIB 3 Dose Schedule 1996 Completed [facility]ive [facility]ity of 00:00:00 [facility] Polio (IPV/OPV) 1996 Completed [facility] 00:00:00 [facility] HIB 3 Dose Schedule 1996 Completed [facility]ity of 00:00:00 [facility] Polio (IPV/OPV) 1996 Completed [facility] of 00:00:00 [facility] HIB 3 Dose Schedule 1996 Completed [facility]ity of 00:00:00 [facility] Polio (IPV/OPV) 1996 Completed [facility] of 00:00:00 [facility] HIB 3 Dose Schedule 1996 Completed [facility]ity of 00:00:00 [facility] Polio (IPV/OPV) 1996 Completed [facility] of 00:00:00 [facility] HIB 3 Dose Schedule 1996 Completed [facility] of 00:00:00 [facility] Polio (IPV/OPV) 1996 Completed [facility] of 00:00:00 [facility] HIB 3 Dose Schedule 1996 Completed [facility]ity of 00:00:00 [facility] Polio (IPV/OPV) 1996 Completed [facility] of 00:00:00 [facility] HIB 3 Dose Schedule 1996 [...] (IPV/OPV) 1996 Completed [facility] of 00:00:00 [facility] HIB 3 Dose Schedule 1996 Completed [facility]ity of 00:00:00 [facility] Polio (IPV/OPV) 1996 Completed [facility] of 00:00:00 [facility] HIB 3 Dose Schedule 1996 Completed [facility]ive rsity of 00:00:00 [facility] Polio (IPV/OPV) 1996 Completed [facility] of 00:00:00 [facility] HIB 3 Dose Schedule 1996 Completed [facility]ity of 00:00:00 [facility] Polio (IPV/OPV) 1996 Completed [facility] of 00:00:00 [facility] HIB 3 Dose Schedule 1996 Completed [facility]ity of 00:00:00 [facility] Polio (IPV/OPV) 1996 Completed [facility] of 00:00:00 [facility] HIB 3 Dose Schedule 1996 Completed [facility]ity of 00:00:00 [facility] Polio (IPV/OPV) 1996 Completed [facility] of 00:00:00 [facility] HIB 3 Dose Schedule 1996 Completed [facility]ity of 00:00:00 [facility] Polio (IPV/OPV) 1996 Completed [facility] of 00:00:00 [facility] HIB 3 Dose Schedule 1996 Completed [facility]ity of 00:00:00 [facility] Polio (IPV/OPV) 1996 Completed [facility] of 00:00:00 [facility] HIB 3 Dose Schedule 1996 Completed [facility]ity of 00:00:00 [facility] Polio (IPV/OPV) 1996 Completed [facility] of 00:00:00 [facility] HIB 3 Dose Schedule 1996 Completed [facility]ity of 00:00:00 [facility] Polio (IPV/OPV) 1996 Completed [facility] of 00:00:00 [facility] HIB 3 Dose Schedule 1996 Completed [facility]ity of 00:00:00 [facility] Polio (IPV/OPV) 1996 Completed [facility] of 00:00:00 [facility] HIB 3 Dose Schedule 1996 Completed [facility]ity of 00:00:00 [facility] Polio (IPV/OPV) 1996 Completed [facility] 00:00:00 [facility] HIB 3 Dose Schedule 1996 Completed [facility]ity of 00:00:00 [facility] Polio (IPV/OPV) 1996 Completed [facility] of 00:00:00 [facility] HIB 3 Dose Schedule 1996 Completed [facility] of 00:00:00 [facility] Polio (IPV/OPV) 1996 Completed [facility] 00:00:00 [facility] HIB 3 Dose Schedule 1996 Completed [facility]ity of 00:00:00 [facility] Polio (IPV/OPV) 1996 Completed [facility] of 00:00:00 [facility] HIB 3 Dose Schedule 1996 Completed [facility]ity of 00:00:00 [facility] Polio (IPV/OPV) 1996 Completed [facility] 00:00:00 [facility] HIB 3 Dose Schedule 1996 Completed [facility] of 00:00:00 [facility] Polio (IPV/OPV) 1996 Completed [facility] 00:00:00 [facility] Hep B, Adol or Pedi 1996 Completed [facility] rsity of Dosage 00:00:00 [facility] Polio (IPV/OPV) 1996 Completed [facility] of 00:00:00 [facility] Hep B, Adol or Pedi 1996 Completed [facility]ity of Dosage 00:00:00 [facility] Polio (IPV/OPV) 1996 Completed [facility] of 00:00:00 [facility] Hep B, Adol or Pedi 1996 Completed [facility] rsity of Dosage 00:00:00 [facility] Polio (IPV/OPV) 1996 Completed [facility] of 00:00:00 [facility] Hep B, Adol or Pedi 1996 Completed [facility]ity of Dosage 00:00:00 [facility] Polio (IPV/OPV) 1996 Completed [facility] of 00:00:00 [facility] Hep B, Adol or Pedi 1996 Completed [facility] of Dosage 00:00:00 [facility] Polio (IPV/OPV) 1996 Completed [facility] 00:00:00 [facility] Hep B, Adol or Pedi 1996 Completed [facility] of Dosage 00:00:00 [facility] Polio (IPV/OPV) 1996 Completed [facility] 00:00:00 [facility] Hep B, Adol or Pedi 1996 Completed [facility] of Dosage 00:00:00 [facility] Polio (IPV/OPV) 1996 Completed [facility] 00:00:00 [facility] Hep B, Adol or Pedi 1996 Completed [facility] of Dosage 00:00:00 [facility] Polio (IPV/OPV) 1996 Completed [facility] of 00:00:00 [facility] Hep B, Adol or Pedi 1996 Completed [facility] of Dosage 00:00:00 [facility] Polio (IPV/OPV) 1996 Completed [facility] of 00:00:00 [facility] Hep B, Adol or Pedi 1996 Completed [facility] of Dosage 00:00:00 [facility] Polio (IPV/OPV) 1996 Completed [facility] 00:00:00 [facility] Hep B, Adol or Pedi 1996 Completed [facility] of Dosage 00:00:00 [facility] Polio (IPV/OPV) 1996 Completed [facility] 00:00:00 [facility] Hep B, Adol or Pedi 1996 Completed [facility] of Dosage 00:00:00 [facility] Polio (IPV/OPV) 1996 Completed [facility] 00:00:00 [facility] Hep B, Adol or Pedi 1996 Completed [facility] of Dosage 00:00:00 [facility] Polio (IPV/OPV) 1996 Completed [facility] 00:00:00 [facility] Hep B, Adol or Pedi 1996 Completed [facility] of Dosage 00:00:00 [facility] Polio (IPV/OPV) 1996 Completed [facility] 00:00:00 [facility] Hep B, Adol or Pedi 1996 Completed [facility] of Dosage 00:00:00 [facility] Polio (IPV/OPV) 1996 Completed [facility] 00:00:00 [facility] Hep B, Adol or Pedi 1996 Completed [facility] of Dosage 00:00:00 [facility] Polio (IPV/OPV) 1996 Completed [facility] 00:00:00 [facility] Hep B, Adol or Pedi 1996 Completed [facility] of Dosage 00:00:00 [facility] Polio (IPV/OPV) 1996 Completed [facility] 00:00:00 [facility] Hep B, Adol or Pedi 1996 Completed [facility] of Dosage 00:00:00 [facility] Polio (IPV/OPV) 1996 Completed [facility] 00:00:00 [facility] Hep B, Adol or Pedi 1996 Completed [facility] of Dosage 00:00:00 [facility] Polio (IPV/OPV) 1996 Completed [facility] of 00:00:00 [facility] Hep B, Adol or Pedi 1996 Completed [facility] of Dosage 00:00:00 [facility] Polio (IPV/OPV) 1996 Completed [facility] 00:00:00 [facility] Hep B, Adol or Pedi 1996 Completed [facility] of Dosage 00:00:00 [facility] Polio (IPV/OPV) 1996 Completed [facility] of 00:00:00 [facility] Hep B, Adol or Pedi 1996 Completed [facility] of Dosage 00:00:00 [facility] Polio (IPV/OPV) 1996 Completed [facility] 00:00:00 [facility] Hep B, Adol or Pedi 1996 Completed [facility] of Dosage 00:00:00 [facility] Polio (IPV/OPV) 1996 Completed [facility] 00:00:00 [facility] Hep B, Adol or Pedi 1996 Completed [facility] of Dosage 00:00:00 [facility] Polio (IPV/OPV) 1996 Completed [facility] 00:00:00 [facility] Hep B, Adol or Pedi 1996 Completed [facility] of Dosage 00:00:00 [facility] Polio (IPV/OPV) 1996 Completed [facility] 00:00:00 [facility] Hep B, Adol or Pedi 1996 Completed [facility] of Dosage 00:00:00 [facility] Polio (IPV/OPV) 1996 Completed [facility] 00:00:00 [facility] Hep B, Adol or Pedi 1996 Completed [facility] of Dosage 00:00:00 [facility] Polio (IPV/OPV) 1996 Completed [facility] 00:00:00 [facility] Hep B, Adol or Pedi 1996 Completed [facility] of Dosage 00:00:00 [facility] Polio (IPV/OPV) 1996 Completed [facility] 00:00:00 [facility] Hep B, Adol or Pedi 1996 Completed [facility] of Dosage 00:00:00 [facility] Polio (IPV/OPV) 1996 Completed [facility] 00:00:00 [facility] Hep B, Adol or Pedi 1996 Completed [facility] of Dosage 00:00:00 [facility] Polio (IPV/OPV) 1996 Completed [facility] 00:00:00 [facility] Hep B, Adol or Pedi 1996 Completed [facility] of Dosage 00:00:00 [facility] Polio (IPV/OPV) 1996 Completed [facility] 00:00:00 [facility] Hep B, Adol or Pedi 1996 Completed [facility] of Dosage 00:00:00 [facility] Polio (IPV/OPV) 1996 Completed [facility] 00:00:00 [facility] Hep B, Adol or Pedi 1996 Completed [facility] of Dosage 00:00:00 [facility] Polio (IPV/OPV) 1996 Completed [facility] 00:00:00 [facility] Hep B, Adol or Pedi 1996 Completed [facility] of Dosage 00:00:00 [facility] Polio (IPV/OPV) 1996 Completed [facility] 00:00:00 [facility] Hep B, Adol or Pedi 1996 Completed [facility] of Dosage 00:00:00 [facility] Polio (IPV/OPV) 1996 Completed [facility] 00:00:00 [facility] Hep B, Adol or Pedi 1996 Completed [facility] of Dosage 00:00:00 [facility] Polio (IPV/OPV) 1996 Completed [facility] 00:00:00 [facility] Hep B, Adol or Pedi 1996 Completed [facility] of Dosage 00:00:00 [facility] Polio (IPV/OPV) 1996 Completed [facility] 00:00:00 [facility] Hep B, Adol or Pedi 1996 Completed [facility] of Dosage 00:00:00 [facility] Polio (IPV/OPV) 1996 Completed [facility] 00:00:00 [facility] Hep B, Adol or Pedi 1996 Completed [facility] of Dosage 00:00:00 [facility] Polio (IPV/OPV) 1996 Completed [facility] 00:00:00 [facility] Hep B, Adol or Pedi 1996 Completed [facility] of Dosage 00:00:00 [facility] Polio (IPV/OPV) 1996 Completed [facility] 00:00:00 [facility] Hep B, Adol or Pedi 1996 Completed [facility] of Dosage 00:00:00 [facility] Polio (IPV/OPV) 1996 Completed [facility] 00:00:00 [facility] Hep B, Adol or Pedi 1996 Completed [facility] of Dosage 00:00:00 [facility] Polio (IPV/OPV) 1996 Completed [facility] 00:00:00 [facility] Hep B, Adol or Pedi 1996 Completed [facility] of Dosage 00:00:00 [facility] Polio (IPV/OPV) 1996 Completed [facility] 00:00:00 [facility] Hep B, Adol or Pedi 1996 Completed [facility] of Dosage 00:00:00 [facility] Polio (IPV/OPV) 1996 Completed [facility] 00:00:00 [facility] Hep B, Adol or Pedi 1996 Completed [facility] of Dosage 00:00:00 [facility] Polio (IPV/OPV) 1996 Completed [facility] 00:00:00 [facility] Hep B, Adol or Pedi 1996 Completed [facility] of Dosage 00:00:00 [facility] Polio (IPV/OPV) 1996 Completed [facility] 00:00:00 [facility] Hep B, Adol or Pedi 1996 Completed [facility] of Dosage 00:00:00 [facility] Polio (IPV/OPV) 1996 Completed [facility] 00:00:00 [facility] Hep B, Adol or Pedi 1996 Completed [facility] of Dosage 00:00:00 [facility] Polio (IPV/OPV) 1996 Completed [facility] 00:00:00 [facility] Hep B, Adol or Pedi 1996 Completed [facility] of Dosage 00:00:00 [facility] Polio (IPV/OPV) 1996 Completed [facility] 00:00:00 [facility] Hep B, Adol or Pedi 1996 Completed [facility] of Dosage 00:00:00 [facility] Polio (IPV/OPV) 1996 Completed [facility] 00:00:00 [facility] Hep B, Adol or Pedi 1996 Completed [facility] of Dosage 00:00:00 [facility] Polio (IPV/OPV) 1996 Completed [facility] 00:00:00 [facility] Hep B, Adol or Pedi 1996 Completed [facility] of Dosage 00:00:00 [facility] Polio (IPV/OPV) 1996 Completed [facility] 00:00:00 [facility] Hep B, Adol or Pedi 1996 Completed [facility] Dosage 00:00:00 [facility] Polio (IPV/OPV) 1996 Completed [facility] 00:00:00 [facility] Hep B, Adol or Pedi 1996 Completed [facility] of Dosage 00:00:00 [facility] Polio (IPV/OPV) 1996 Completed [facility] 00:00:00 [facility] Hep B, Adol or Pedi 1996 Completed [facility] Dosage 00:00:00 [facility] Polio (IPV/OPV) 1996 Completed [facility] 00:[facility]00 [facility] Hep B, Adol or Pedi 1996 Completed Unive rsity of Dosage 00:00:00 [facility] Polio (IPV/OPV) 1996 Completed [facility] 00:00:00 [facility] Hep B, Adol or Pedi 1996 Completed [facility]ive rsity of Dosage 00:00:00 [facility] Polio (IPV/OPV) 1996 Completed [facility] 00:00:00 [facility] Hep B, Adol or Pedi 1996 Completed Unive rsity of Dosage 00:00:00 [facility] Polio (IPV/OPV) 1996 Completed [facility] 00:00:00 [facility] Hep B, Adol or Pedi 1996 Completed Unive rsity of Dosage 00:00:00 [facility] Polio (IPV/OPV) 1996 Completed [facility] 00:00:00 [facility] Hep B, Adol or Pedi 1996 Completed Unive rsity of Dosage 00:00:00 [facility] Hep B, Adol or Pedi 1996 Completed Unive rsity of Dosage 00:00:00 [facility] Hep B, Adol or Pedi 1996 Completed Unive rsity of Dosage 00:00:00 [facility] Hep B, Adol or Pedi 1996 Completed Unive rsity of Dosage 00:00:00 [facility] Hep B, Adol or Pedi 1996 Completed Unive rsity of Dosage 00:00:00 [facility] Hep B, Adol or Pedi 1996 Completed [facility]ive rsity of Dosage 00:00:00 [facility] Hep B, Adol or Pedi 1996 Completed Unive rsity of Dosage 00:00:00 [facility] Hep B, Adol or Pedi 1996 Completed [facility]ive rsity of Dosage 00:00:00 [facility] Hep B, Adol or Pedi 1996 Completed Unive rsity of Dosage 00:00:00 [facility] Hep B, Adol or Pedi 1996 Completed Unive rsity of Dosage 00:00:00 [facility] Hep B, Adol or Pedi 1996 Completed Unive rsity of Dosage 00:00:00 [facility] Hep B, Adol or Pedi 1996 Completed [facility]ive rsity of Dosage 00:00:00 [facility] Hep B, Adol or Pedi 1996 Completed Unive rsity of Dosage 00:00:00 [facility] Hep B, Adol or Pedi 1996 Completed [facility]ive rsity of Dosage 00:00:00 [facility] Hep B, Adol or Pedi 1996 Completed Unive rsity of Dosage 00:00:00 [facility] Hep B, Adol or Pedi 1996 Completed Unive rsity of Dosage 00:00:00 [facility] Hep B, Adol or Pedi 1996 Completed Unive rsity of Dosage 00:00:00 [facility] Hep B, Adol or Pedi 1996 Completed [facility]ive rsity of Dosage 00:00:00 [facility] Hep B, Adol or Pedi 1996 Completed Unive rsity of Dosage 00:00:00 [facility] Hep B, Adol or Pedi 1996 Completed [facility]ive rsity of Dosage 00:00:00 [facility] Hep B, Adol or Pedi 1996 Completed [facility] of Dosage 00:00:00 [facility] Hep B, Adol or Pedi 1996 Completed [facility]ive rsity of Dosage 00:00:00 [facility] Hep B, Adol or Pedi 1996 Completed [facility]ive rsity of Dosage 00:00:00 [facility] Hep B, Adol or Pedi 1996 Completed Unive rsity of Dosage 00:00:00 [facility] Hep B, Adol or Pedi 1996 Completed Unive rsity of Dosage 00:00:00 [facility] Hep B, Adol or Pedi 1996 Completed [facility]ive rsity of Dosage 00:00:00 [facility] Hep B, Adol or Pedi 1996 Completed Unive rsity of Dosage 00:00:00 [facility] Hep B, Adol or Pedi 1996 Completed Unive rsity of Dosage 00:00:00 [facility] Hep B, Adol or Pedi 1996 Completed Unive rsity of Dosage 00:00:00 [facility] Hep B, Adol or Pedi 1996 Completed Unive rsity of Dosage 00:00:00 [facility] Hep B, Adol or Pedi 1996 Completed [facility]ive rsity of Dosage 00:00:00 [facility] Hep B, Adol or Pedi 1996 Completed [facility]ive rsity of Dosage 00:00:00 [facility] Hep B, Adol or Pedi 1996 Completed [facility]ive rsity of Dosage 00:00:00 [facility] Hep B, Adol or Pedi 1996 Completed [facility]ive rsity of Dosage 00:00:00 [facility] Hep B, Adol or Pedi 1996 Completed [facility]ive rsity of Dosage 00:00:00 [facility] Hep B, Adol or Pedi 1996 Completed [facility]ive rsity of Dosage 00:00:00 [facility] Hep B, Adol or Pedi 1996 Completed [facility]ive rsity of Dosage 00:00:00 [facility] Hep B, Adol or Pedi 1996 Completed [facility]ive rsity of Dosage 00:00:00 [facility] Hep B, Adol or Pedi 1996 Completed [facility]ive rsity of Dosage 00:00:00 [facility] Hep B, Adol or Pedi 1996 Completed [facility]ive rsity of Dosage 00:00:00 [facility] Hep B, Adol or Pedi 1996 Completed [facility]ive rsity of Dosage 00:00:00 [facility] Hep B, Adol or Pedi 1996 Completed Unive rsity of Dosage 00:00:00 [facility] Hep B, Adol or Pedi 1996 Completed Unive rsity of Dosage 00:00:00 [facility] Hep B, Adol or Pedi 1996 Completed [facility]ive rsity of Dosage 00:00:00 [facility] Hep B, Adol or Pedi 1996 Completed Unive rsity of Dosage 00:00:00 [facility] Hep B, Adol or Pedi 1996 Completed Unive rsity of Dosage 00:00:00 [facility] Hep B, Adol or Pedi 1996 Completed Unive rsity of Dosage 00:00:00 [facility] Hep B, Adol or Pedi 1996 Completed Unive rsity of Dosage 00:00:00 [facility] Hep B, Adol or Pedi 1996 Completed Unive rsity of Dosage 00:00:00 [facility] Hep B, Adol or Pedi 1996 Completed [facility] of Dosage 00:00:00 [facility] Hep B, Adol or Pedi 1996 Completed Unive rsity of Dosage 00:00:00 [facility] Hep B, Adol or Pedi 1996 Completed Unive rsity of Dosage 00:00:00 [facility] Hep B, Adol or Pedi 1996 Completed [facility]ive [facility] of Dosage 00:00:00 [facility] Hep B, Adol or Pedi 1996 Completed [facility]ive rsity of Dosage 00:00:00 [facility] Hep B, Adol or Pedi 1996 Completed [facility]ive rsity of Dosage 00:00:00 [facility] Hep B, Adol or Pedi 1996 Completed Unive rsity of Dosage 00:00:00 [facility] Hep B, Adol or Pedi 1996 Completed Unive rsity of Dosage 00:00:00 [facility] Hep B, Adol or Pedi 1996 Completed Unive rsity of Dosage 00:00:00 [facility] Hep B, Adol or Pedi 1996 Completed Unive rsity of Dosage 00:00:00 [facility] Vital Signs Vital Name Observation Time Observation Value Comments Source Systolic blood 2022-04-16 17:12:00 105 mm[Hg] Univer sity of pressure [facility] Diastolic blood 2022-04-16 17:12:00 61 mm[Hg] Unive rsity of pressure [facility] Heart rate 2022-04-16 17:12:00 76 /min [facility] Body temperature 2022-04-16 17:12:00 36.94 Sosa [facility] 2022-04-16 17:12:00 18 /min [facility] Oxygen saturation in 2022-04-16 17:12:00 98 /min [facility] Arterial blood by [facility] Pulse oximetry [place] Body height 2022-04-14 13:39:00 162.6 cm [facility] Body weight 2022-04-14 13:39:00 92.534 kg [facility] BMI 2022-04-14 13:39:00 35.00 kg/m2 [facility] Systolic blood 2022-04-11 16:31:00 117 mm[Hg] Univer sity of pressure [facility] Diastolic blood 2022-04-11 16:31:00 75 mm[Hg] Unive rsity of pressure [facility] Heart rate 2022-04-11 16:31:00 105 /min [facility] Body temperature 2022-04-11 16:31:00 36.44 Sosa Univ ersity of [facility] Respiratory rate 2022-04-11 16:31:00 18 /min Univ ersity of [facility] Body height 2022-04-11 16:31:00 162.6 cm [facility] Body weight 2022-04-11 16:31:00 93.305 kg [facility] BMI 2022-04-11 16:31:00 35.31 kg/m2 [facility] Systolic blood 2022-04-04 14:02:00 92 mm[Hg] Univer sity of pressure [facility] Diastolic blood 2022-04-04 14:02:00 64 mm[Hg] Unive rsity of pressure [facility] Heart rate 2022-04-04 14:02:00 93 /min [facility] Body temperature 2022-04-04 14:02:00 36.5 Sosa Univ ersity of [facility] Respiratory rate 2022-04-04 14:02:00 20 /min Univ ersity of [facility] Body height 2022-04-04 14:02:00 162.6 cm [facility] Body weight 2022-04-04 14:02:00 93.123 kg [facility] BMI 2022-04-04 14:02:00 35.24 kg/m2 [facility] Systolic blood 2022-04-02 18:30:00 101 mm[Hg] Univer sity of pressure [facility] Diastolic blood 2022-04-02 18:30:00 61 mm[Hg] Unive rsity of pressure [facility] Heart rate 2022-04-02 18:30:00 82 /min [facility] Oxygen saturation in 2022-04-02 18:30:00 99 /min University of Arterial blood by [facility] Pulse oximetry Branch Body temperature 2022-04-02 17:34:00 36.78 Sosa Univ ersity of [facility] Respiratory rate 2022-04-02 17:34:00 17 /min Univ ersity of [facility] Body height 2022-04-02 17:34:00 162.6 cm [facility] Body weight 2022-04-02 17:34:00 91.627 kg [facility] BMI 2022-04-02 17:34:00 34.67 kg/m2 Universi ty of [facility] Systolic blood 2022-04-01 14:44:00 118 mm[Hg] Univer sity of pressure [facility] Diastolic blood 2022-04-01 14:44:00 67 mm[Hg] Unive rsity of pressure [facility] Heart rate 2022-04-01 14:44:00 73 /min Universi ty of [facility] Body temperature 2022-04-01 14:44:00 36.22 Sosa Univ ersity of [facility] Respiratory rate 2022-04-01 14:44:00 18 /min Univ ersity of [facility] Body weight 2022-04-01 14:44:00 91.717 kg [facility] BMI 2022-04-01 14:44:00 34.71 kg/m2 [facility] Systolic blood 2022-03-28 13:21:00 101 mm[Hg] Univer sity of pressure [facility] Diastolic blood 2022-03-28 13:21:00 54 mm[Hg] Unive rsity of pressure [facility] Heart rate 2022-03-28 13:21:00 86 /min [facility] Body temperature 2022-03-28 13:21:00 36.39 Sosa Univ ersity of [facility] Respiratory rate 2022-03-28 13:21:00 16 /min Univ ersity of [facility] Body height 2022-03-28 13:21:00 162.6 cm [facility] Body weight 2022-03-28 13:21:00 91.218 kg [facility] BMI 2022-03-28 13:21:00 34.52 kg/m2 [facility] Systolic blood 2022-03-25 21:11:00 100 mm[Hg] Univer sity of pressure [facility] Diastolic blood 2022-03-25 21:11:00 67 mm[Hg] Unive rsity of pressure [facility] Heart rate 2022-03-25 21:11:00 91 /min [facility] Body temperature 2022-03-25 21:11:00 36.67 Sosa Univ ersity of [facility] Respiratory rate 2022-03-25 21:11:00 18 /min Univ ersity of [facility] Body height 2022-03-25 21:11:00 162.6 cm [facility] Body weight 2022-03-25 21:11:00 90.804 kg [facility] BMI 2022-03-25 21:11:00 34.36 kg/m2 [facility] Systolic blood 2022-03-21 13:17:00 100 mm[Hg] Univer sity of pressure [facility] Diastolic blood 2022-03-21 13:17:00 56 mm[Hg] Unive rsity of pressure [facility] Heart rate 2022-03-21 13:17:00 92 /min [facility] Body temperature 2022-03-21 13:17:00 36.33 Sosa Univ ersity of [facility] Respiratory rate 2022-03-21 13:17:00 17 /min Univ ersity of [facility] Body height 2022-03-21 13:17:00 162.6 cm [facility] Body weight 2022-03-21 13:17:00 90.402 kg [facility] BMI 2022-03-21 13:17:00 34.21 kg/m2 [facility] Systolic blood 2022-03-11 14:18:00 106 mm[Hg] Univer sity of pressure [facility] Diastolic blood 2022-03-11 14:18:00 57 mm[Hg] Unive rsity of pressure [facility] Heart rate 2022-03-11 14:18:00 85 /min [facility] Body temperature 2022-03-11 14:18:00 36.39 Sosa Univ ersity of [facility] Respiratory rate 2022-03-11 14:18:00 18 /min Univ ersity of [facility] Body height 2022-03-11 14:18:00 162.6 cm [facility] Body weight 2022-03-11 14:18:00 90.81 kg [facility] BMI 2022-03-11 14:18:00 34.36 kg/m2 [facility] Systolic blood 2022-02-19 17:30:00 102 mm[Hg] Univer sity of pressure [facility] Diastolic blood 2022-02-19 17:30:00 55 mm[Hg] Unive rsity of pressure [facility] Heart rate 2022-02-19 17:30:00 75 /min [facility] Body temperature 2022-02-19 17:30:00 36.22 Sosa Univ ersity of [facility] Respiratory rate 2022-02-19 17:30:00 18 /min Univ ersity of [facility] Body height 2022-02-19 17:30:00 162.6 cm [facility] Body weight 2022-02-19 17:30:00 86.694 kg [facility] BMI 2022-02-19 17:30:00 32.81 kg/m2 [facility] Systolic blood 2022-02-07 18:26:00 121 mm[Hg] Univer sity of pressure [facility] Diastolic blood 2022-02-07 18:26:00 70 mm[Hg] Unive rsity of pressure [facility] Heart rate 2022-02-07 18:26:00 96 /min [facility] Body temperature 2022-02-07 18:26:00 36.56 Sosa Univ ers[facility] of [facility] Respiratory rate 2022-02-07 18:26:00 16 /min Univ ersity of [facility] Body height 2022-02-07 18:26:00 162.6 cm [facility] Body weight 2022-02-07 18:26:00 86.637 kg [facility] BMI 2022-02-07 18:26:00 32.79 kg/m2 [facility] Systolic blood 2022-01-24 00:46:00 108 mm[Hg] Univer sity of pressure [facility] Diastolic blood 2022-01-24 00:46:00 70 mm[Hg] Unive rsity of pressure [facility] Heart rate 2022-01-24 00:46:00 116 /min [facility] Body temperature 2022-01-24 00:46:00 38.56 Sosa Univ ersity of [facility] Respiratory rate 2022-01-24 00:46:00 18 /min Univ ersity of [facility] Body height 2022-01-24 00:46:00 162.6 cm [facility] Body weight 2022-01-24 00:46:00 83.371 kg [facility] BMI 2022-01-24 00:46:00 31.55 kg/m2 Universi ty of [facility] Oxygen saturation in 2022-01-24 00:46:00 96 /min University Arterial blood by [facility] Pulse oximetry Branch Systolic blood 2022-01-18 13:38:00 116 mm[Hg] Univer sity of pressure [facility] Diastolic blood 2022-01-18 13:38:00 63 mm[Hg] Unive rsity of pressure [facility] Heart rate 2022-01-18 13:38:00 86 /min [facility] Body temperature 2022-01-18 13:38:00 36.5 Sosa Univ ersity of [facility] Respiratory rate 2022-01-18 13:38:00 18 /min Univ ersity of [facility] Body height 2022-01-18 13:38:00 162.6 cm [facility] Body weight 2022-01-18 13:38:00 83.915 kg [facility] BMI 2022-01-18 13:38:00 31.76 kg/m2 [facility] Systolic blood 2021-10-26 15:57:00 100 mm[Hg] Univer sity of pressure [facility] Diastolic blood 2021-10-26 15:57:00 59 mm[Hg] Unive rsity of pressure [facility] Heart rate 2021-10-26 15:57:00 82 /min [facility] Body temperature 2021-10-26 15:57:00 36.33 Sosa [facility] Respiratory rate 2021-10-26 15:57:00 16 /min [facility] Body height 2021-10-26 15:57:00 162.6 cm [facility] Body weight 2021-10-26 15:57:00 80.831 kg [facility] BMI 2021-10-26 15:57:00 30.59 kg/m2 [facility] Procedures Procedure Date / Time Performing Clinician Source Performed CBC WITH DIFF 2022-04-16 10:35:[address] [facility] [place] [place] VENOUS CORD GAS 2022-04-15 12:35:[address] [facility] [place] [place] CENTRAL NEURAXIAL BLOCK 2022-04-15 05:45:53 Leticia Bardales [facility] URINALYSIS 2022-04-14 18:53:00 Shanthi [facility] URINE CULTURE 2022-04-14 18:53[facility] - INFLU[facility]ZA A B 2022-04-14 17:56:00 Sharri Maki [facility] RSV PCR [facility] COVID-19 (ID NOW RAPID 2022-04-14 17:56:00 Roopa Petit [facility] TESTING) Medical Branch LAB ONLY COVID 2022-04-14 17:56:00 Roopa Petit [facility] CBC WITH DIFF 2022-04-14 15:43:[address] [facility] [place] HEPATITIS B SURFACE 2022-04-14 15:43:00 Abram Cox [facility] ANTIGEN [facility] HIV 1/2 AG-AB WITH REFLEX 2022-04-14 15:43:[address] [facility] GALV ONLY - SYPHILIS 2022-04-14 15:43:00 Abram Cox [facility] IGG/IGM [facility] HB ABO GROUPING 2022-04-14 15:36:00 [facility] IMMUNE GLOBULIN 2022-04-14 15:36:00 Charlotte Laurenjosefa Pandya [facility] HOSPITAL ADMISSION 2022-04-14 06:01:00 Doctor Unatrace, [facility] Name [facility] NON-STRESS TEST 2022-04-12 02:18:30 Alondra Flowers [facility] POCT URINALYSIS 2022-04-11 16:33:00 Akinsipe, Roseanne C [facility] NON-STRESS TEST 2022-04-04 14:20:59 Holly Marie [facility] POCT URINALYSIS 2022-04-04 00:00:00 Akinsipe, Roseanne C [facility] CONSENT/REFUSAL FOR 2022-04-02 06:01:00 Doctor Unatrace, [facility] DIAGNOSIS AND TREATMENT [place] [facility] NON-STRESS TEST 2022-04-01 15:46:41 Akinsipe, Roseanne C U [facility] POCT URINALYSIS 2022-04-01 14:48:00 Akinsipe, Roseanne C [facility] NON-STRESS TEST 2022-03-28 15:05:04 Gonzales Gonzalez [facility] POCT URINALYSIS 2022-03-28 00:00:00 Akinsipe, Roseanne C [facility] NON-STRESS TEST 2022-03-25 21:41:16 Akinsipe, Roseanne C U [facility] POCT URINALYSIS 2022-03-25 21:12:00 Akinsipe, Roseanne C [facility] NON-STRESS TEST 2022-03-21 14:10:31 Gonzales Gonzalez [facility] POCT URINALYSIS 2022-03-21 00:00:00 Akinsipe, Roseanne C [facility] SECOND AND THIRD 2022-03-11 15:46:00 Akinsipe Roseanne C [facility] TRIMESTER ULTRASOUND [facility] NON-STRESS TEST 2022-03-11 15:22:06 Roseanne Gordon [facility] POCT URINALYSIS 2022-03-11 00:00:00 Roseanne Gordon [facility] SECOND AND THIRD 2022-02-26 15:50:00 Roseanne Gordon [facility] TRIMESTER ULTRASOUND [facility] POCT URINALYSIS 2022-02-19 18:29:00 Roseanne Gordon [facility] NON-STRESS TEST 2022-02-19 18:13:51 Cinthya Alex [facility] SECOND AND THIRD 2022-02-19 16:56:00 Roseanne Gordon [facility] TRIMESTER ULTRASOUND [facility] POCT URINALYSIS 2022-02-07 19:32:00 Roseanne Gordon [facility] TDAP VACCINE, >11 YRS, IM 2022-02-07 18:30:[address] [facility] [place] STERILIZATION CONSENT 2022-02-07 05:01:00 Doctor Unassigned, [facility] FORM [place] RAPID INFLUENZA A/B 2022-01-24 00:54:00 Imtiaz Alvarado [facility] COVID-19 (ID NOW RAPID 2022-01-24 00:54:[address] [facility] TESTING) [facility] CONSENT/REFUSAL FOR 2022-01-24 00:32:54 Doctor Unassabigail, [facility] DIAGNOSIS AND TREATMENT [place] POCT URINALYSIS 2021-10-26 15:58:00 Roseanne Gordon [facility] Encounters Start End Encounter Admission Attending Care Care Encounter Source Date/Time Date/Time Type Type Clinicians Facility Department ID 2021-03-23 Emergency [facility] [id number] Univers 20:38:[address] [facility] 2021-03-23 Outpatient [facility] [id number] Univers 15:53:[address] [facility] 2021-03-23 Outpatient P [facility] JACQUELYN [id number] Univers 01:45:44 ity of [facility] 2022-04-14 2022-04-16 Hospital Michael Francis 1.2.840 .114 [id number] Univers 07:24:00 16:02:00 Encounter Farrah Ho JEY [id number] ity of [address]686 [place] [id number] [facility] 134 Branch 2022-04-14 2022-04-16 Inpatient P VIC [facility] JACQUELYN [id number] Univers 07:24:00 16:02:00 FARRAH ity [facility] 2022-04-14 2022-04-15 Anesthesia Leticia Bardales 1.2.840.1 [id number] Univers 22:16:00 07:53:00 Event Kary Mejia 350 .1.13.10 ity of [place] [id number] [place] [id number] [facility] [address] [place] 2022-04-14 2022-04-14 Anesthesia JANETTE Bardales 1.2.840.114 [id number] Univers 13:54:23 13:54:23 Event Leticia KHANNA 350.1.13.10 it y of [place] [id number] [place] [id number] [facility] [address] [place] 2022-04-14 2022-04-14 Orders Doctor SAVAGE 1.2.840.114 [id number] Univers 00:00:00 00:00:00 Only Unassigned, JEY 350.1.13.10 ity of [place] [address]2.686 [place] [id number] [facility] 009 Branch 2022-04-11 2022-04-11 Outpatient R HEIDI, [facility] [id number] Univers 15:45:00 15:45:00 ROSEANNE dee o f [facility] 2022-04-11 2022-04-11 Outpatient R SHAYNA, [facility] [id number] Univers 10:30:00 11:11:21 ALONDRA ity [facility] 2022-04-11 2022-04-11 Routine Provider, Jae Temp [facility] 1 .2.840.114 [id number] Univers 10:30:00 11:11:21 Alondra Flowers TALENT ACQUISITION ADMINISTRATOR 350.1.13. 10 ity of Visit REGIONAL [id number] [place] MATERNAL [id number] [facility] CH[facility] [address] [place] [address] 2022-04-11 2022-04-11 Outpatient R [facility] [id number] Univers 10:00:00 10:00:00 ity of [facility] 2022-04-09 2022-04-09 Abstract Heidi, [facility] 1.2.840.114 [id number] Univers 00:00:00 00:00:00 Roseanne Bustillo TALENT ACQUISITION ADMINISTRATOR 350.1.13.10 ity of REGIONAL 4.2.7.2.686 [place] MATERNAL [id number] [facility] & [address] 2022-04-08 2022-04-08 Programmer Business Ultrasound, Wm [facility] 1.2 .840.114 [id number] Univers 10:30:00 11:00:00 Visit Maurice Pichardo TALENT ACQUISITION ADMINISTRATOR 350.1.13.10 ity of REGIONAL 4.2.7.2.686 [place] MATERNAL [id number] [facility] CHILD [address] [place] [address] 2022-04-08 2022-04-08 Outpatient P MOISES [facility] [id number] Univers 10:30:00 10:30:00 MAURICE ity of [facility] 2022-04-08 2022-04-08 Torie Gonzalez [facility] 1.2.840.114 [id number] Univers 00:00:00 00:00:00 Gonzales Bowen TALENT ACQUISITION ADMINISTRATOR 350.1.13.10 i ty of REGIONAL 4.2.7.2.686 [place] MATERNAL [id number] [facility] CHILD [address] [place] [address] 2022-04-04 2022-04-04 Routine Risk, Zjn-Qraay-Cv/High [facility] 1. 2.840.114 [id number] Univers 08:15:00 08:30:00 Holly Marie TALENT ACQUISITION ADMINISTRATOR 350.1.13.10 ity of Visit REGIONAL 4.2.7.2.686 [place] as MATERNAL [phone] [facility] & CHILD [address] [place] [address] 2022-04-04 2022-04-04 Outpatient R CYNTHIA [facility] [id number] Univers 08:15:00 08:15:00 HOLLY dee [facility] 2022-04-02 2022-04-02 Outpatient P ABRAHAN [facility] JACQUELYN [id number] Univers 11:34:00 12:47:00 [facility]IGUES [facility] 2022-04-02 2022-04-02 [facility] AbrahanJANETTE 1.2.824.570 [id number] Univers 11:34:00 12:47:00 Encounter Ravi LOGANY 350.1.13.10 ity of [facility] 4.2.7.2.686 [place] as [phone] [address] 2022-04-02 2022-04-02 Telephone [facility] 1.2.840.114 [id number] Univers 00:00:00 00:00:00 Roseanne C TALENT ACQUISITION ADMINISTRATOR 350.1.13.10 ity of [facility] 4.2.7.2.686 [place] as MATERNAL [id number] [facility] & CHILD [address] [place] [address] 2022-04-01 2022-04-01 Programmer Business Ultrasound, [facility] 1.2 .840.114 [id number] Univers 10:30:00 11:00:00 Visit Herminia Davis TALENT ACQUISITION ADMINISTRATOR 350.1. 13.10 ity of [facility] 4.2.7.2.686 [place] as MATERNAL [id number] [facility] ical & CHILD 369 [facility] 2022-04-01 2022-04-01 Outpatient P RYAN [facility] [id number] Univers 10:30:00 10:30:32 HERMINIA [facility] 2022-04-01 2022-04-01 Routine [facility] 1.2.676.356 [id number] Univers 08:45:00 09:53:03 Roseanne C TALENT ACQUISITION ADMINISTRATOR 350.1.13.10 ity of Visit REGIONAL 4.2.7.2.686 [place] as MATERNAL [id number] [facility] [address] [place] [address] 2022-04-01 2022-04-01 Abstract Heidi [facility] 1.2.840.114 [id number] Univers 00:00:00 00:00:00 Roseanne C TALENT ACQUISITION ADMINISTRATOR 350.1.13.10 ity of REGIONAL 4.2.7.2.686 [place] as MATERNAL [phone] [facility] ical & CHILD [address] [place] [address] 2022-03-28 2022-03-28 Outpatient R AIRAM [facility] [id number] Univers 08:15:00 09:26:55 GONZALES dee [facility] 2022-03-28 2022-03-28 Routine Risk, Mof-Xezld-Mq/High [facility] 1. 2.840.114 [id number] Univers 08:15:00 09:26:55 Gonzales Gnozalez TALENT ACQUISITION ADMINISTRATOR 350.1.13.10 ity of Visit REGIONAL 4.2.7.2.686 [place] as MATERNAL [id number] [facility] & CHILD [address] [place] [address] 2022-03-26 2022-03-26 Abstract Heidi [facility] 1.2.840.114 [id number] Univers 00:00:00 00:00:00 Roseanne C TALENT ACQUISITION ADMINISTRATOR 350.1.13.10 ity of REGIONAL 4.2.7.2.686 [place] as MATERNAL [id number] [facility] & CHILD [address] [place] [address] 2022-03-25 2022-03-25 Routine Heidi, [facility] 1.2.644.719 [id number] Univers 16:00:00 16:41:21 Roseanne C TALENT ACQUISITION ADMINISTRATOR 350.1.13.10 ity of Visit REGIONAL 4.2.7.2.686 [place] as MATERNAL [id number] [facility] [address] [place] [address] 2022-03-25 2022-03-25 Programmer Business Ultrasound, Wm [facility] 1.2 .840.114 [id number] Univers 10:45:00 11:15:00 Visit Moises, Maurice TALENT ACQUISITION ADMINISTRATOR 350.1.13.10 ity of REGIONAL 4.2.7.2.686 [place] as MATERNAL [id number] [facility] [address] [place] [address] 2022-03-25 2022-03-25 Outpatient P MOISES [facility] [id number] Univers 10:45:00 11:02:[address] [facility] 2022-03-21 2022-03-21 Outpatient R AIRAM [facility] [id number] Univers 08:30:00 08:58:[address] [facility] 2022-03-21 2022-03-21 Routine Risk, Ils-Pglio-Ct/High [facility] 1. 2.840.114 [id number] Univers 08:30:00 08:58:18 Gonzales Gonzalez TALENT ACQUISITION ADMINISTRATOR 350.1.13.10 ity of Visit REGIONAL 4.2.7.2.686 [place] as MATERNAL [id number] [facility] & CHILD [address] [place] [address] 2022-03-18 2022-03-18 Programmer Business Ultrasound, Wm [facility] 1.2 .840.114 [id number] Univers 10:30:00 11:00:00 Visit Herminia Davis TALENT ACQUISITION ADMINISTRATOR 350.1. 13.10 ity of REGIONAL 4.2.7.2.686 [place] as MATERNAL [id number] [facility] & CHILD [address] [place] [address] 2022-03-18 2022-03-18 Outpatient P RYAN [facility] [id number] Univers 10:30:00 10:30:00 [facility] 2022-03-13 2022-03-13 Abstract Scotreid [facility] 1.2.840.114 [id number] Univers 00:00:00 00:00:00 Roseanne Bustillo TALENT ACQUISITION ADMINISTRATOR 350.1.13.10 ity of REGIONAL 4.2.7.2.686 [place] as MATERNAL [id number] [facility] [address] [place] [address] 2022-03-12 2022-03-12 Telephone Heidi [facility] 1.2.840.114 [id number] Univers 00:00:00 00:00:00 Roseanne C TALENT ACQUISITION ADMINISTRATOR 350.1.13.10 ity of REGIONAL 4.2.7.2.686 [place] as MATERNAL [id number] [facility] ical & CHILD [address] [place] [address] 2022-03-11 2022-03-11 Outpatient P RYAN [facility] [id number] Univers 10:30:00 11:29:36 CHASEY ity of [facility] 2022-03-11 2022-03-11 Programmer Business Ultrasound, [facility] 1.2 .840.114 [id number] [facility] 10:30:00 11:29:36 Visit Roseanne Gordon TALENT ACQUISITION ADMINISTRATOR 350.1.13. 10 ity of Ryan Herminia luis daniel REGIONAL 4.2.7.2 .686 [place] MATERNAL [id number] [facility] & CHILD [address] [place] [address] 2022-03-11 2022-03-11 Routine Heidi, [facility] 1.2.447.482 [id number] Univers 09:15:00 10:32:01 Roseanne C TALENT ACQUISITION ADMINISTRATOR 350.1.13.10 ity of Visit REGIONAL 4.2.7.2.686 [place] as MATERNAL [id number] [facility] [address] [place] [address] 2022-03-05 2022-03-05 Abstract eHidi [facility] 1.2.840.114 [id number] Univers 00:00:00 00:00:00 Roseanne C TALENT ACQUISITION ADMINISTRATOR 350.1.13.10 ity of REGIONAL 4.2.7.2.686 [place] as MATERNAL [id number] [facility] ical & CHILD [address] [place] [address] 2022-03-04 2022-03-04 Programmer Business Ultrasound, [facility] 1.2 .840.114 [id number] [facility] 11:30:00 12:00:00 Visit Rajesh Duvall TALENT ACQUISITION ADMINISTRATOR 350.1. 13.10 ity of REGIONAL 4.2.7.2.686 [place] as MATERNAL [id number] [facility] ical & CHILD [address] [place] [address] 2022-03-042022-03-04 Outpatient P JAMIE [facility] [id number] Univers 11:30:00 11:30:00 ZITA goetz y RAJESH Sharif [facility] 2022-03-04 2022-03-04 [facility] 1.2.840.114 [id number] Univers 00:00:00 00:00:00 Roseanne C TALENT ACQUISITION ADMINISTRATOR 350.1.13.10 ity of REGIONAL 4.2.7.2.686 [place] as MATERNAL [id number] Med ical & CHILD [address] [place] [address] 2022-02-26 2022-02-26 Programmer Business 1, [facility] Room [facility] 1.2. 840.114 [id number] Univers 10:30:00 10:55:22 Visit Lisa Weinstein TALENT ACQUISITION ADMINISTRATOR 350.1.13.10 ity of REGIONAL 4.2.7.2.686 [place] as MATERNAL [id number] Med ical & CHILD [address] [place] [address] 2022-02-26 2022-02-26 Outpatient P LISA WEINSTEIN [facility] [id number] Univers 10:30:00 10:30:00 LISA WEINSTEIN [facility] 2022-02-22 2022-02-22 Outpatient [facility] [id number] Univers 08:00:00 08:00:00 ROSEANNE dee o f [facility] 2022-02-22 2022-02-22 Abstract [facility] 1.2.840.114 [id number] Univers 00:00:00 00:00:00 Roseanne Bustillo TALENT ACQUISITION ADMINISTRATOR 350.1.13.10 ity of REGIONAL 4.2.7.2.686 [place] as MATERNAL [id number] Med ical & CHILD [address] [place] [address] 2022-02-19 2022-02-19 Routine Sergei [facility] 1.2.840.114 [id number] Univers 15:30:00 15:30:00 Cinthya Toure TALENT ACQUISITION ADMINISTRATOR 350.1.13.10 ity of Visit REGIONAL 4.2.7.2.686 [place] as MATERNAL [phone] Med ical & CHILD 125 [facility] 2022-02-19 2022-02-19 Outpatient [facility] [id number] Univers 10:30:00 12:30:[address] [facility] 2022-02-19 2022-02-19 Programmer Business 2, [facility] Us Room [facility] 1.2. 840.114 [id number] Univers 10:30:00 12:30:14 Visit Farrah Ho TALENT ACQUISITION ADMINISTRATOR 350.1.13.10 ity of REGIONAL 4.2.7.2.686 [place] as MATERNAL [id number] Med ical & CHILD 369 [facility] 2022-02-14 2022-02-14 Outpatient P ABRAHAN [facility] [id number] Univers 11:15:00 12:44:[address] [facility] 2022-02-14 2022-02-14 Programmer Business 2, [facility] Us Room [facility] 1.2. 840.114 [id number] Univers 11:15:00 12:44:07 Visit Ravi Gauthier TALENT ACQUISITION ADMINISTRATOR 350.1.13.10 ity of REGIONAL 4.2.7.2.686 [place] as MATERNAL [id number] Med ical & CHILD 369 [facility] 2022-02-14 2022-02-14 Abstract [facility] 1.2.840.114 [id number] Univers 00:00:00 00:00:00 Rosibrahimanda R TALENT ACQUISITION ADMINISTRATOR 350.1.13.10 ity of REGIONAL 4.2.7.2.686 [place] as MATERNAL [id number] Med ical & CHILD 107 [facility] 2022-02-14 2022-02-14 Abstract [facility] 1.2.840.114 [id number] Univers 00:00:00 00:00:00 Ninfanda R TALENT ACQUISITION ADMINISTRATOR 350.1.13.10 ity of REGIONAL 4.2.7.2.686 [place] as MATERNAL [id number] Med ical & CHILD [address] [place] [address] 2022-02-13 2022-02-13 Outpatient P [facility] [id number] Univers 13:00:00 13:00:00 ity of [facility] 2022-02-08 2022-02-08 Abstract [facility] 1.2.840.114 [id number] Univers 00:00:00 00:00:00 Evelyn Casas TALENT ACQUISITION ADMINISTRATOR 350.1.13.10 ity of [facility] 4.2.7.2.686 [place] as MATERNAL [id number] [facility] & CHILD 107 [facility] 2022-02-07 2022-02-07 Routine [facility] 1.2.686.184 [id number] Univers 13:15:00 14:01:17 Roseanne C TALENT ACQUISITION ADMINISTRATOR 350.1.13.10 ity of Visit [facility] 4.2.7.2.686 [place] as MATERNAL [id number] [facility] & CHILD [address] [place] [address] 2022-02-07 2022-02-07 Outpatient P MOISES [facility] [id number] Univers 10:00:00 11:03:43 [facility] 2022-02-07 2022-02-07 Programmer Business 1, [facility] Room [facility] 1.2. 840.114 [id number] Univers 10:00:00 10:45:00 Visit Maurice Pichardo TALENT ACQUISITION ADMINISTRATOR 350.1.13.10 ity of [facility] 4.2.7.2.686 [place] as MATERNAL [id number] [facility] 369 [facility] 2022-02-07 2022-02-07 Orders Doctor JANETTE 1.2.840.114 [id number] Univers 00:00:00 00:00:00 Only Unassigned, JEY 350.1.13.10 ity of [place] [facility] 4.2.7.2.686 Bla[place] as [phone] [address] 2022-01-23 2022-01-23 Emergency X [facility] ERT [id number] Univers 20:38:00 21:27:00 IMTIAZ dee [facility] 2022-01-23 2022-01-23 Emergency [facility] 1.2.386.168 [id number] Univers 20:38:00 21:27:00 Imtiaz [facility] 350.1.13.10 ity of [place] 4.2.7.2.686 [place] [facility] [id number] [facility] [address] 2022-01-21 2022-01-21 Outpatient R STEFANI [facility] [id number] Univers 08:00:00 08:00:00 ROSHUNDA ity o f [facility] 2022-01-18 2022-01-18 Outpatient R HEIDI [facility] [id number] Univers 08:00:00 08:56:37 ROSEANNE ity o f [facility] 2022-01-18 2022-01-18 Routine [facility] 1.2.847.043 [id number] Univers 08:00:00 08:56:37 Roseanne C TALENT ACQUISITION ADMINISTRATOR 350.1.13.10 ity of Visit REGIONAL 4.2.7.2.686 [place] as MATERNAL [id number] Med ical & CHILD [address] [place] [address] 2022-01-18 2022-01-18 Letter [facility] 1.2.889.342 [id number] Univers 00:00:00 00:00:00 (Out) Roseanne C TALENT ACQUISITION ADMINISTRATOR 350.1.13.10 ity of REGIONAL 4.2.7.2.686 [place] as MATERNAL [id number] Med ical & CHILD [address] [place] [address] 2022-01-16 2022-01-16 [facility] 1.2.081.657 [id number] Univers 00:00:00 00:00:00 Ninfanda R TALENT ACQUISITION ADMINISTRATOR 350.1.13.10 ity of REGIONAL 4.2.7.2.686 [place] as MATERNAL [id number] Med ical & CHILD [address] [place] [address] 2022-01-10 2022-01-10 Programmer Business 1[facility] Room [facility] 1.2. 840.114 [id number] Univers 10:00:00 11:20:11 Visit Farrah Ho TALENT ACQUISITION ADMINISTRATOR 350.1.13.10 ity of Maurice Pichardo REGIONAL 4.2.7.2.686 [place] MATERNAL [phone] Med ical & CHILD 369 [facility] 2022-01-10 2022-01-10 Outpatient P MOISES, [facility] [id number] Univers 10:00:00 10:00:[address] [facility] 2022-01-10 2022-01-10 Abstract [facility] 1.2.840.114 [id number] Univers 00:00:00 00:00:00 Evelyn Casas TALENT ACQUISITION ADMINISTRATOR 350.1.13.10 ity of [facility] 4.2.7.2.686 [place] as MATERNAL [id number] [facility] 107 [facility] 2022-01-08 2022-01-08 Telephone [facility] 1.2.188.656 [id number] Univers 00:00:00 00:00:00 Cinthya Toure TALENT ACQUISITION ADMINISTRATOR 350.1.13.10 ity of [facility] 4.2.7.2.686 [place] as MATERNAL [id number] [facility] 125 [facility] 2021-12-24 2021-12-24 Outpatient R AKINJOVAN, [facility] [id number] Univers 08:00:00 08:00:00 ROSEANNE ity o [facility] 2021-12-21 2021-12-21 Outpatient R AKINJOVAN, [facility] [id number] Univers 16:00:00 16:00:00 ROSEANNE ity o f [facility] 2021-12-10 2021-12-10 Outpatient P [facility] [id number] Univers 10:00:00 10:00:00 ity [facility] 2021-11-23 2021-11-23 Outpatient R STEFANI [facility] [id number] Univers 10:45:00 10:45:00 ROSHUNDA ity o f [facility] 2021-10-29 2021-10-29 Outpatient R AKINSIREID, [facility] [id number] Univers 12:45:00 12:45:00 ROSEANNE ity o f [facility] 2021-10-26 2021-10-26 Outpatient R STEFANI [facility] [id number] Univers 10:15:00 11:09:15 ROSHUNDA ity o f [facility] 2021-10-26 2021-10-26 Routine Stefani [facility] 1.2.840.114 [id number] Univers 10:15:00 11:09:15 Ninfanda R TALENT ACQUISITION ADMINISTRATOR 350.1.13.10 ity of Visit REGIONAL 4.2.7.2.686 [place] as MATERNAL [id number] [facility] & CHILD [address] [place] [address] 2021-10-25 2021-10-25 Outpatient [facility] [id number] Univers 09:15:00 09:15:00 ROSEANNE ity o f [facility] 2021-10-24 2021-10-24 Telephone [facility] 1.2.840.114 [id number] Univers 00:00:00 00:00:00 Roseanne Bustillo TALENT ACQUISITION ADMINISTRATOR 350.1.13.10 ity of REGIONAL 4.2.7.2.686 [place] as MATERNAL [id number] [facility] & CHILD [address] [place] [address] 2021-10-17 2021-10-17 Abstract [facility] 1.2.840.114 [id number] Univers 00:00:00 00:00:00 Roseanne C TALENT ACQUISITION ADMINISTRATOR 350.1.13.10 ity of REGIONAL 4.2.7.2.686 [place] as MATERNAL [id number] [facility] & [address] 2021-10-15 2021-10-15 Programmer Business Ultrasound, [facility] 1.2 .840.114 [id number] Univers 11:15:00 11:45:00 Visit Rajesh Duvall TALENT ACQUISITION ADMINISTRATOR 350.1. 13.10 ity of REGIONAL 4.2.7.2.686 [place] as MATERNAL [id number] [facility] & CHILD [address] [place] [address] 2021-10-15 2021-10-15 Outpatient P [facility] [id number] Univers 11:15:00 11:15:00 ity of [facility] 2021-10-15 2021-10-15 Outpatient P JAMIE [facility] [id number] Univers 11:15:00 11:15:00 ZITA it y of S, MENA [facility] 2021-10-11 2021-10-11 Telephone [facility] 1.2.840.114 [id number] Univers 00:00:00 00:00:00 Roseanne C TALENT ACQUISITION ADMINISTRATOR 350.1.13.10 ity of REGIONAL 4.2.7.2.686 [place] MATERNAL [id number] [facility] [address] [place] [address] 2021-10-01 2021-10-01 Telephone [facility] 1.2.840.114 [id number] Univers 00:00:00 00:00:00 Roseanne C TALENT ACQUISITION ADMINISTRATOR 350.1.13.10 ity of REGIONAL 4.2.7.2.686 [place] MATERNAL [id number] [facility] & [address] 2021-09-27 2021-09-27 Outpatient R ALEKSANDAR, [facility] [id number] Univers 08:15:00 09:23:03 ROSEANNE ity o [facility] 2021-09-27 2021-09-27 Initial [facility] 1.2.046.681 [id number] Univers 08:15:00 09:23:03 Roseanne C TALENT ACQUISITION ADMINISTRATOR 350.1.13.10 ity of Visit [facility] 4.2.7.2.686 [place] as MATERNAL [id number] [facility] & [address] 2021-09-27 2021-09-27 Outpatient R AKINFAIZANPE, [facility] [id number] Univers 08:15:00 09:23:03 ROSEANNE ity o [facility] 2021-09-27 2021-09-27 Outpatient R AKINSIPE, [facility] [id number] Univers 08:15:00 09:23:03 ROSEANNE ity o [facility] 2021-09-27 2021-09-27 Orders Doctor SAVAGE 1.2.840.114 [id number] Univers 00:00:00 00:00:00 Only Unassigned, JEY 350.1.13.10 ity of [place] [facility] 4.2.7.2.686 [place] as [id number] [address] 2021-09-03 2021-09-03 Outpatient R HEIDI, [facility] [id number] Univers 17:00:00 17:00:00 ROSEANNE dee o [facility] 2021-06-09 2021-06-09 Outpatient R ANUEL, [facility] [id number] Univers 11:45:00 11:45:00 SYDNIE dee [facility] 2021-06-02 2021-06-02 Outpatient R JOSHUA, [facility] [id number] Univers 10:30:00 10:30:00 JULI ity o [facility] 2021-01-01 2021-01-01 Telephone Regina Mata 1.2.840.114 [id number] Univers 00:00:00 00:00:00 , Barbara Nunez 350.1.13.10 ity of [place]2.7.2.686 [place] [id number] [facility] [address] 2020-09-05 2020-09-05 Outpatient [facility] [id number] Univers 09:40:00 09:40:00 [facility] 2020-09-05 2020-09-05 Urgent Provider, [facility] 1.2.840.114 [id number] Univers 09:03:58 09:23:58 Care Kirstin Villalobos [facility] 350.1.13.10 ity of [place] 4.2.7.2.686 [place] as Professio [phone] [place] [address] 2020-08-15 2020-08-15 Patient Js [facility] 1.2.840.114 [id number] Univers 00:00:00 00:00:00 Outreach Maxime PRIMARY 350.1.13.10 i ty of [place] [facility] 4.2.7.2.686 [place] [phone] [place]ical [address] 2020-06-28 2020-06-28 Outpatient [facility]essenia [facility] [id number] Univers 09:30:00 09:30:00 EVELYN dee o [facility] 2020-06-27 2020-06-27 Outpatient R STEFANI, [facility] [id number] Univers 10:30:00 10:30:00 EVELYN goetzy o f [facility] 2020-06-15 2020-06-15 Telephone [facility] 1.2.409.218 [id number] Univers 00:00:00 00:00:00 Evelyn Casas TALENT ACQUISITION ADMINISTRATOR 350.1.13.10 ity of [facility] 4.2.7.2.686 [place] as MATERNAL [id number] [facility] ical & CHILD [address] [place] [address] 2020-06-13 2020-06-13 Office [facility] 1.2.840.114 [id number] Univers 08:17:25 09:20:19 Visit Evelyn Casas TALENT ACQUISITION ADMINISTRATOR 350.1.13.10 ity of [facility] 4.2.7.2.686 [place] MATERNAL [id number] [facility] & [address] 2020-06-13 2020-06-13 Outpatient R [facility] [id number] Univers 07:45:00 07:45:00 EVELYN dee o susan [facility] 2020-06-13 2020-06-13 Orders Doctor JANETTE 1.2.840.114 [id number] Univers 00:00:00 00:00:00 Only Unassigned, JEY [id number] ity of [place] [facility] [id number] [place] as [phone] [address] 2020-04-18 2020-04-18 Urgent Provider, [facility] [id number] Univers 08:33:48 08:53:48 [facility] [id number] ity [facility] [id number] [place] [phone] [address] 2020-04-18 2020-04-18 Outpatient Yessenia CORDERO [facility] [id number] Univers 08:20:00 08:20:00 SONI dee [facility] 2020-04-12 2020-04-12 Outpatient R HEIDI [facility] [id number] Univers 09:45:00 09:45:00 ROSEANNE dee o f [facility] 2020-03-30 2020-03-30 Outpatient R WILFREDO [facility] [id number] Univers 18:40:00 18:40:00 KIRSTIN dee [facility] 2020-03-30 2020-03-30 Laboratory Lab, Adc Fam Pob I [facility] [id number]. [id number] Univers 16:20:42 16:21:25 Only Wilfredo Kirstin [facility] [id number] ity of [place] [id number] [place] Professio [phone] [facility] dical nal [address] 2020-03-30 2020-03-30 Outpatient Yessenia NAIRWILFREDO [facility] [id number] Univers 15:40:00 15:40:00 KIRSTIN dee [facility] 2020-03-21 2020-03-21 Outpatient R AKINFAIZANPE, [facility] [id number] Univers 10:30:00 10:30:00 ROSEANNE dee o susan [facility] 2020-02-29 2020-03-02 Routine Akinreid, [facility] [id number] Univers 13:03:25 09:03:08 Roseanne Bustillo TALENT ACQUISITION ADMINISTRATOR [id number] ity of [facility] [id number] [place] MATERNAL [phone] Med ical & CH[place] 107 [facility] 2020-02-29 2020-02-29 Outpatient R HEIDI, [facility] [id number] Univers 12:45:00 12:45:00 ROSEANNE dee o f [facility] 2020-02-28 2020-02-28 Outpatient R AKINSIPE, [facility] [id number] Univers 10:00:00 10:00:00 ROSEANNE dee o f [facility] 2020-02-25 2020-02-25 [facility] 1.2.386.689 [id number] Univers 04:57:00 05:36:00 Imtiaz Duran [place] 350.1.13.10 ity of [place] 4.2.7.2.686 [place] [phone] [address] 2020-02-22 2020-02-22 Outpatient R VIANCA [facility] [id number] Univers 11:00:00 11:00:00 ZINA itneville [facility] 2020-02-10 2020-02-10 Nurse Visit, Ang-Rmchp Nurse [facility] 1.2 .840.114 [id number] Univers 09:48:10 10:04:02 Visit Evelyn Ko TALENT ACQUISITION ADMINISTRATOR 350.1.13.10 ity of [facility] 4.2.7.2.686 [place] as MATERNAL [id number] Med ical & CHILD [address] [place] [address] 2020-02-10 2020-02-10 Outpatient R STEFANI [facility] [id number] Univers 09:30:00 09:30:00 EVELYN ity o f [facility] 2020-02-07 2020-02-07 Outpatient R [facility] [id number] Univers 09:30:00 09:30:00 ity of [facility] 2020-01-28 2020-01-30 [facility] 1.2.843.880 [id number] Univers 07:01:00 16:39:00 Encounter Rodrigues Jazzy JEY 350.1.13.10 ity of [facility] 4.2.7.2.686 [place] as [phone] [facility] [address] 2020-01-26 2020-01-26 Telephone Stefani [facility] 1.2.283.216 [id number] Univers 00:00:00 00:00:00 Rosrhonda R TALENT ACQUISITION ADMINISTRATOR 350.1.13.10 ity of [facility] 4.2.7.2.686 [place] as MATERNAL [id number] Med ical & CHILD [address] [place] [address] 2020-01-24 2020-01-24 Routine Stefani [facility] 1.2.840.114 [id number] Univers 08:37:41 09:17:40 Rosrhonda R TALENT ACQUISITION ADMINISTRATOR 350.1.13.10 ity of Visit [facility] 4.2.7.2.686 [place] as MATERNAL [id number] [facility] ical & CHILD [address] [place] [address] 2020-01-24 2020-01-24 Outpatient R STEFANI [facility] [id number] Univers 08:30:00 08:30:00 ROSHUNDA ity o f [facility] 2020-01-17 2020-01-17 Routine [facility] 1.2.840.114 [id number] Univers 07:49:10 08:15:50 Roshunda R TALENT ACQUISITION ADMINISTRATOR 350.1.13.10 ity of Visit REGIONAL 4.2.7.2.686 [place] as MATERNAL [id number] [facility] [address] [place] [address] 2020-01-17 2020-01-17 Outpatient R [facility] [id number] Univers 07:45:00 07:45:00 ROSIBRAHIMANDA ity o f [facility] 2020-01-13 2020-01-13 Telephone [facility] 1.2.104.925 [id number] Univers 00:00:00 00:00:00 Roshunda R TALENT ACQUISITION ADMINISTRATOR 350.1.13.10 ity of REGIONAL 4.2.7.2.686 [place] as MATERNAL [phone] [facility] & CHILD [address] [place] [address] 2020-01-11 2020-01-11 Telephone [facility] 1.2.467.669 [id number] Univers 00:00:00 00:00:00 Roshunda R TALENT ACQUISITION ADMINISTRATOR 350.1.13.10 ity of REGIONAL 4.2.7.2.686 [place] as MATERNAL [id number] [facility] & [address] 2020-01-10 2020-01-10 Routine [facility] 1.2.840.114 [id number] Univers 10:47:16 11:13:48 Roshunda R TALENT ACQUISITION ADMINISTRATOR 350.1.13.10 ity of Visit REGIONAL 4.2.7.2.686 [place] as MATERNAL [phone] [address] 2020-01-10 2020-01-10 Outpatient R [facility] [id number] Univers 10:45:00 10:45:00 NINFANDA ity o f [facility] 2020-01-08 2020-01-08 Laboratory Lab, Adc Fam Pob I [facility] 1.2. 840.114 [id number] Univers 12:27:28 12:47:28 Only Soni Cordero [facility] 350.1.13.10 ity of [place] 4.2.7.2.686 [place] as Professio [phone] [place] dical [address] Office [facility] 2020-01-08 2020-01-08 Outpatient R ARGENTINA [facility] [id number] Univers 12:20:00 12:20:00 SONI ity of [facility] 2020-01-04 2020-01-04 Telephone [facility] 1.2.007.545 [id number] Univers 00:00:00 00:00:00 Roshunda R TALENT ACQUISITION ADMINISTRATOR 350.1.13.10 ity of REGIONAL 4.2.7.2.686 [place] as MATERNAL [phone] Med ical & CHILD [address] [place] [address] 2019-12-30 2019-12-30 Telephone [facility] 1.2.395.132 [id number] Univers 00:00:00 00:00:00 Roshunda R TALENT ACQUISITION ADMINISTRATOR 350.1.13.10 ity of REGIONAL 4.2.7.2.686 [place] as MATERNAL [phone] Med ical & CHILD [address] [place] [address] 2019-12-27 2019-12-27 Routine [facility] 1.2.840.114 [id number] Univers 08:05:01 08:50:11 Roshunda R TALENT ACQUISITION ADMINISTRATOR 350.1.13.10 ity of Visit REGIONAL 4.2.7.2.686 [place] as MATERNAL [id number] [facility] ical & CHILD [address] [place] [address] 2019-12-27 2019-12-27 Outpatient R [facility] [id number] Univers 08:00:00 08:00:00 ROSHUNDA ity o f [facility] 2019-12-24 2019-12-24 Abstract [facility] 1.2.840.114 [id number] Univers 00:00:00 00:00:00 Roshunda R TALENT ACQUISITION ADMINISTRATOR 350.1.13.10 ity of REGIONAL 4.2.7.2.686 [place] as MATERNAL [phone] [facility] ical & CHILD [address] [place] [address] 2019-12-23 2019-12-23 Programmer Business Ultrasound, [facility] 1.2 .840.114 [id number] Univers 09:52:51 10:33:34 Visit Misbah Louie R TALENT ACQUISITION ADMINISTRATOR 350.1.13.10 ity of REGIONAL 4.2.7.2.686 [place] as MATERNAL [id number] [facility] ical & CHILD [address] [place] [address] 2019-12-23 2019-12-23 Outpatient P [facility] [id number] Univers 10:00:00 10:00:00 ity of [facility] 2019-12-23 2019-12-23 [facility]phone [facility] 1.2.957.769 [id number] Univers 00:00:00 00:00:00 Roshunda R TALENT ACQUISITION ADMINISTRATOR 350.1.13.10 ity of REGIONAL 4.2.7.2.686 [place] as MATERNAL [phone] [facility] ical & CHILD [address] [place] [address] 2019-12-13 2019-12-13 Routine [facility] 1.2.840.114 [id number] Univers 12:45:44 13:00:44 Roshunda R TALENT ACQUISITION ADMINISTRATOR 350.1.13.10 ity of Visit REGIONAL 4.2.7.2.686 [place] as MATERNAL [id number] [facility] & [address] 2019-12-13 2019-12-13 Outpatient R [facility] [id number] Univers 12:45:00 12:45:00 ROSHUNDA ity o f [facility] 2019-11-29 2019-11-29 [facility]ine [facility] 1.2.840.114 [id number] Univers 10:27:37 11:06:47 Roshunda R TALENT ACQUISITION ADMINISTRATOR 350.1.13.10 ity of Visit REGIONAL 4.2.7.2.686 [place] as MATERNAL [phone] [facility] & CHILD [address] [place] [address] 2019-11-29 2019-11-29 Outpatient R [facility] [id number] Univers 10:15:00 10:15:00 ROSHUNDA ity o f [facility] 2019-11-11 2019-11-11 [facility] Dustin Enriquez [facility] 1.2.840.114 [id number] Univers 18:38:00 20:50:00 Encounter Cam [place] 350.1.13.10 ity of [place] 4.2.7.2.686 [place] [facility] [phone] [facility] [address] 2019-11-08 2019-11-08 [facility] 1.2.840.114 [id number] Univers 09:43:02 10:56:35 Evelyn Casas TALENT ACQUISITION ADMINISTRATOR 350.1.13.10 ity of Visit [facility] 4.2.7.2.686 [place] as MATERNAL [id number] Med ical & CHILD [address] [place] [address] 2019-11-08 2019-11-08 Outpatient R [facility] [id number] Univers 09:15:00 09:15:00 YURIYA ity o f [facility] 2019-11-05 2019-11-05 Telephone Risk, [facility] 1.2.813.617 [id number] Univers 00:00:00 00:00:00 Ang-Rmchp-N TALENT ACQUISITION ADMINISTRATOR 350.1.13.10 ity of p/High [facility] 4.2.7.2.686 [place] as MATERNAL [phone] [facility] ica & CHILD [address] [place] [address] 2019-11-05 2019-11-05 Telephone Akinsipe, [facility] 1.2.840.114 [id number] Univers 00:00:00 00:00:00 Roseanne Bustillo TALENT ACQUISITION ADMINISTRATOR 350.1.13.10 ity of [facility] 4.2.7.2.686 [place] as MATERNAL [phone] Med ical & CHILD [address] [place] [address] 2019-11-04 2019-11-04 Routine Risk, Yfd-Azpin-Sn/High [facility] 1. 2.840.114 [id number] Univers 13:41:23 14:23:45 Holly Marie TALENT ACQUISITION ADMINISTRATOR 350.1.13.10 ity of Visit [facility] 4.2.7.2.686 [place] as MATERNAL [id number] [facility] ical & CHILD [address] [place] [address] 2019-11-04 2019-11-04 Outpatient R CYNTHIA [facility] [id number] Univers 13:30:00 13:30:00 HOLLY ity of [facility] 2019-10-28 2019-10-28 Telephone [facility] 1.2.693.659 [id number] Univers 00:00:00 00:00:00 Roshunda R TALENT ACQUISITION ADMINISTRATOR 350.1.13.10 ity of [facility] 4.2.7.2.686 [place] as MATERNAL [phone] [facility] CH[facility] [address] [place] [address] 2019-10-19 2019-10-19 Telemedici [facility] 1.2.840.114 [id number] Univers 07:30:31 09:05:06 ne Visit Ninfacarolynea R TALENT ACQUISITION ADMINISTRATOR 350.1.13.10 ity of [facility] 4.2.7.2.686 [place] as MATERNAL [phone] [address] 2019-10-19 2019-10-19 Outpatient R STEFANI [facility] [id number] Univers 07:45:00 07:45:00 ROSIBRAHIMANDA ity o f [facility] 2019-10-15 2019-10-15 Telephone [facility] 1.2.189.550 [id number] Univers 00:00:00 00:00:00 Rosibrahimanda R TALENT ACQUISITION ADMINISTRATOR 350.1.13.10 ity of [facility] 4.2.7.2.686 [place] as MATERNAL [phone] [address] 2019-10-04 2019-10-04 Outpatient P [facility] [id number] Univers 10:15:00 10:15:00 ity of [facility] 2019-10-04 2019-10-04 Telemedici Eliana Soto [facility] 1. 2.840.114 [id number] Univers 09:04:36 09:49:36 ne Visit Allen Saeed TALENT ACQUISITION ADMINISTRATOR 350.1.13.10 ity of [place]ION[place] 4.2.7.2.686 [place] as MATERNAL [id number] [facility] & CHILD [address] [place] [address] 2019-09-30 2019-09-30 Abstract [facility] 1.2.840.114 [id number] Univers 00:00:00 00:00:00 Roshunda R TALENT ACQUISITION ADMINISTRATOR 350.1.13.10 ity of [facility] 4.2.7.2.686 [place] as MATERNAL [id number] [facility] CH[facility] [address] [place] [address] 2019-09-22 2019-09-22 Telemedicjasmine Ko [facility] 1.2.840.114 [id number] Univers 07:38:18 08:14:04 ne Visit Yuriya R TALENT ACQUISITION ADMINISTRATOR 350.1.13.10 ity of [facility] 4.2.7.2.686 [place] as MATERNAL [id number] [facility] & [address] 2019-09-22 2019-09-22 Outpatient R STEFANI [facility] [id number] Univers 07:45:00 07:45:00 EVELYN dee o susan [facility] 2019-09-21 2019-09-21 Outpatient Yessenia KO [facility] [id number] Univers 11:00:00 11:00:00 EVELYN dee o susan [facility] 2019-09-20 2019-09-20 Programmer Business Ultrasound, [facility] 1.2 .840.114 [id number] Univers 13:35:00 16:56:35 Visit Jamie Gavino Rajesh TALENT ACQUISITION ADMINISTRATOR 350.1. 13.10 ity of [facility] 4.2.7.2.686 [place] as MATERNAL [phone] [facility] & [address] 2019-09-20 2019-09-20 Outpatient P [facility] [id number] Univers 13:30:00 13:30:00 ity of [facility] 2019-09-20 2019-09-20 Abstract Stefani [facility] 1.2.840.114 [id number] Univers 00:00:00 00:00:00 Ninfanda R TALENT ACQUISITION ADMINISTRATOR 350.1.13.10 ity of [facility] 4.2.7.2.686 [place] as MATERNAL [id number] [facility] & CHILD [address] [place] [address] 2019-09-20 2019-09-20 Abstract Stefani [facility] 1.2.840.114 [id number] Univers 00:00:00 00:00:00 Rosibrahimanda R TALENT ACQUISITION ADMINISTRATOR 350.1.13.10 ity of REGIONAL 4.2.7.2.686 [place] as MATERNAL [id number] [facility] CHILD [address] [place] [address] 2019-09-15 2019-09-15 [place] [facility] 1.2.016.146 [id number] Univers 00:00:00 00:00:00 Roshunda R TALENT ACQUISITION ADMINISTRATOR 350.1.13.10 ity of REGIONAL 4.2.7.2.686 [place] as MATERNAL [id number] [facility] CHILD [address] [place] [address] 2019-08-26 2019-08-26 [place] [facility] 1.2.542.073 [id number] Univers 00:00:00 00:00:00 Roshunda R TALENT ACQUISITION ADMINISTRATOR 350.1.13.10 ity of REGIONAL 4.2.7.2.686 [place] as MATERNAL [id number] [facility] CHILD [address] [place] [address] 2019-08-26 2019-08-26 [place] [facility] 1.2.309.353 [id number] Univers 00:00:00 00:00:00 Roshunda R TALENT ACQUISITION ADMINISTRATOR 350.1.13.10 ity of REGIONAL 4.2.7.2.686 [place] as MATERNAL [id number] [facility] & CHILD [address] [place] [address] 2019-08-25 2019-08-25 Routine [facility] 1.2.840.114 [id number] Univers 09:26:32 10:17:15 Roshunda R TALENT ACQUISITION ADMINISTRATOR 350.1.13.10 ity of Visit REGIONAL 4.2.7.2.686 [place] as MATERNAL [id number] [facility] & CHILD [address] [place] [address] 2019-08-25 2019-08-25 Outpatient Yessenia KO [facility] [id number] Univers 09:30:00 09:30:00 NINFANDA [place]ne[place] o f [facility] 2019-08-24 2019-08-24 Outpatient Yessenia [facility] [id number] Univers 09:30:00 09:30:00 NINFANDA [place] o f [facility] 2019-08-12 2019-08-12 Sarah [facility] 1.2.481.241 [id number] Univers 00:00:00 00:00:00 Rosibrahimanda R TALENT ACQUISITION ADMINISTRATOR 350.1.13.10 ity of REGIONAL 4.2.7.2.686 [place] as MATERNAL [phone] [facility] ical & CHILD [address] [place] [address] 2019-08-11 2019-08-11 Telephone Stefani [facility] 1.2.057.376 [id number] Univers 00:00:00 00:00:00 Rosibrahimanda R TALENT ACQUISITION ADMINISTRATOR 350.1.13.10 ity of REGIONAL 4.2.7.2.686 [place] as MATERNAL [id number] [facility] ical & CHILD [address] [place] [address] 2019-08-10 2019-08-10 Telephone [facility] 1.2.720.199 [id number] Univers 00:00:00 00:00:00 Ninfanda R TALENT ACQUISITION ADMINISTRATOR 350.1.13.10 ity of REGIONAL 4.2.7.2.686 [place] as MATERNAL [id number] [facility] CH[facility] [address] [place] [address] 2019-08-09 2019-08-09 Routine StefaniEvelyn [facility] 1.2.840 .114 [id number] Univers 15:46:10 16:37:15 Roseanne Gordon TALENT ACQUISITION ADMINISTRATOR 350.1.13 .10 ity of Visit REGIONAL 4.2.7.2.686 [place] as MATERNAL [id number] [facility] & [address] 2019-08-09 2019-08-09 Outpatient R HEIDI WAJULIANNE [facility] [id number] Univers 16:00:00 16:00:00 ROSEANNE dee o f [facility] 2019-08-05 2019-08-05 Telephone [facility] 1.2.035.700 [id number] Univers 00:00:00 00:00:00 Ninfanda R TALENT ACQUISITION ADMINISTRATOR 350.1.13.10 ity of REGIONAL 4.2.7.2.686 [place] as MATERNAL [id number] [facility] [address] [place] [address] 2019-07-27 2019-07-27 Routine [facility] 1.2.840.114 [id number] Univers 11:06:05 11:49:49 Roshunda R TALENT ACQUISITION ADMINISTRATOR 350.1.13.10 ity of Visit REGIONAL 4.2.7.2.686 [place] as MATERNAL [id number] Med ical & CHILD [address] [place] [address] 2019-07-27 2019-07-27 Outpatient R STEFANI [facility] [id number] Univers 09:30:00 09:30:00 ROSHUNDA ity o f [facility] 2019-07-21 2019-07-21 Telephone [facility] 1.2.120.272 [id number] Univers 00:00:00 00:00:00 Roshunda R TALENT ACQUISITION ADMINISTRATOR 350.1.13.10 ity of REGIONAL 4.2.7.2.686 [place] as MATERNAL [id number] [facility] [address] [place] [address] 2019-07-02 2019-07-02 Emergency X [facility] E[facility] [id number] Univers 03:23:23 05:56:00 MERA ity of [facility] 2019-07-02 2019-07-02 Emergency [facility] 1.2.141.227 [id number] Univers 03:23:23 05:56:00 [facility] 350.1.13.10 i ty [facility] 4.2.7.2.686 [place] [facility] [id number] [address] 2019-06-29 2019-06-29 Telephone [facility] 1.2.948.147 [id number] Univers 00:00:00 00:00:00 Rosibrahimanda R TALENT ACQUISITION ADMINISTRATOR 350.1.13.10 ity of REGIONAL 4.2.7.2.686 [place] as MATERNAL [id number] Med ical & CHILD [address] [place] [address] 2019-06-22 2019-06-22 [place] [facility] 1.2.513.949 [id number] Univers 00:00:00 00:00:00 Roshunda R TALENT ACQUISITION ADMINISTRATOR 350.1.13.10 ity of [facility] 4.2.7.2.686 [place] as MATERNAL [phone] [facility] ical & CHILD [address] [place] [address] 2019-06-08 2019-06-08 Initial [facility] 1.2.840.114 [id number] Univers 13:33:47 15:54:49 Roshunda R TALENT ACQUISITION ADMINISTRATOR 350.1.13.10 ity of Visit [facility] 4.2.7.2.686 [place] as MATERNAL [phone] Med ical & CHILD [address] [place] [address] 2019-06-08 2019-06-08 Orders Doctor JANETTE 1.2.840.114 [id number] Univers 00:00:00 00:00:00 Only Unassigned, JEY 350.1.13.10 ity of [place] [facility] 4.2.7.2.686 [place] as [id number] [address] Results Test Description Test Time Test Comments Results Result Comments Source [facility] ONLY - SYPHILIS IGG/IGM 2022-04-15 17:49:06 Test Item Value Reference Range Interpretation Comme nts Syphilis IgG/IgM (test code = Non-reactive Non-reactive 03682-6) STACEY (test code = STACEY) Non-reactive - No serologic evidence of T. pallidum infection. Cannot exclude incubating or early syphilis. Submit a second specimen in 2-4 weeks if syphilis is clinically suspected. Equivocal - Further testing to follow. Reactive - Further testing to follow. Lab Interpretation (test code = Normal 50613-2) [facility] ONLY - SYPHILIS [id number] 17:49:06 Test Item Value Reference Range Interpretation Comments Syphilis IgG/IgM (test Non-reactive Non-reactive code = 22660-3) STACEY (test code = STACEY) Non-reactive - No serologic evidence of T. pallidum infection. Cannot exclude incubating or early syphilis. Submit a second specimen in 2-4 weeks if syphilis is clinically suspected. Equivocal - Further testing to follow. Reactive - Further testing to follow. Lab Interpretation (test Normal code = 21226-3) [facility], [place]HO (D) IMMUNE [id number] 15:50:29 Test Item Value Reference Range Interpretation Comments RHIG CANDIDATE? No- see comment Patient i s not a (test code = candidate for R [facility]- 5055) Patient is Rh Positive.Perfor med at [facility] Laboratory Services - [facility] Blood [address] [place] [address] 52071Okzf Free: [phone] A No. [id number] [facility], [place]RHO (D) IMMUNE [id number] 15:50:29 Test Item Value Reference Range Interpretation Comments RHIG CANDIDATE? No- see comment Patient i s not a (test code = candidate for R hIg- 5055) Patient is Rh Positive.Perfor med at [facility] Laboratory Services - [facility] Blood Q[address] [place] [address] 96294Btbg Free: [phone] A No. [id number] [facility] [id number] 12:48:45 Test Item Value Reference Range Interpretation Comments VENOUS BASE EXCESS, mEq/L CORD (test code = 3609512483) VENOUS PH, CORD (test 7.25-7.45 code = 9774690416) VENOUS PC02, CORD See_Comment [Automate d message] The (test code = system which ge nerated 9069685145) this result tra nsmitted reference range : 27 - 49 mmHg. The refer ence range was not used to interpret this result as normal/abnormal . VENOUS PO2, CORD (test See_Comment [Aut omated message] The code = 2119827190) system [facility] generated this result tra nsmitted reference range : 17 - 41 mmHg. The refer ence range was not used to interpret this result as normal/abnormal . VENOUS BICARBONATE, See_Comment [Automa lisa message] The CORD (test code = system [facility] ch generated 6836913914) this result tra nsmitted reference range : 12 - 29 mEq/L. The refe rence range was not used to interpret this result as normal/abnormal . [facility] CORD [id number] 12:48:45 Test Item Value Reference Range Interpretation Comments VENOUS BASE EXCESS, mEq/L CORD (test code = 9524332231) VENOUS PH, CORD (test 7.25-7.45 code = 6991894222) VENOUS PC02, CORD See_Comment [Automate d message] The (test code = system which ge nerated 7034199369) this result tra nsmitted reference range : 27 - 49 mmHg. The refer ence range was not used to interpret this result as normal/abnormal . VENOUS PO2, CORD (test See_Comment [Aut omated message] The code = 1031071618) system [facility] generated this result tra nsmitted reference range : 17 - 41 mmHg. The refer ence range was not used to interpret this result as normal/abnormal . VENOUS BICARBONATE, See_Comment [Automa lisa message] The CORD (test code = system [facility] ch generated 3705877861) this result tra nsmitted reference range : 12 - 29 mEq/L. The refe rence range was not used to interpret this result as normal/abnormal . [facility] CORD [id number] 12:48:30 Test Item Value Reference Range Interpretation Comments BASE EXCESS, CORD (test mEq/L code = [id number]) AC PH, CORD (BEAKER) 7.18-7.38 H (test code = [id number]) PC02, CORD (test code = See_Comment [Au tomated message] [id number]) The [facility] generated this result transmitted ref erence range: 32 - 66 mmHg. The reference r nestor was not used to interpret this result as normal/abnor mal. PO2, CORD (test code = See_Comment H [Aut omated message] [id number]) The system [employer] generated this result transmitted ref erence range: 10 - 30 mmHg. The reference r nestor was not used to interpret this result as normal/abnor mal. BICARBONATE, CORD (test See_Comment [Au tomated message] code = [id number]) The syste m which generated this result transmitted ref erence range: 17 - 27 mEq/L. The reference r nestor was not used to interpret this result as normal/abnor mal. Lab Interpretation (test Abnormal code = 46731-2) [facility] CORD [id number] 12:48:30 Test Item Value Reference Range Interpretation Comments BASE EXCESS, CORD (test mEq/L code = 4852962236) AC PH, CORD (BEAKER) 7.18-7.38 H (test code = 9061730409) PC02, CORD (test code = See_Comment [Au tomated message] [id number]) The system [employer] generated this result transmitted ref erence range: 32 - 66 mmHg. The reference r nestor was not used to interpret this result as normal/abnor mal. PO2, CORD (test code = See_Comment H [Aut omated message] [id number]) The system whic h generated this result transmitted ref erence range: 10 - 30 mmHg. The reference r nestor was not used to interpret this result as normal/abnor mal. BICARBONATE, CORD (test See_Comment [Au tomated message] code = 3904482530) The syste m which generated this result transmitted ref erence range: 17 - 27 mEq/L. The reference r nestor was not used to interpret this result as normal/abnor mal. Lab Interpretation (test Abnormal code = 62994-6) [facility] 1/2 AG-AB WITH [id number] 18:52:46 Test Item Value Reference Range Interpretation Comments HIV Negative Negative Semi-quantitative (test code = 79097-5) STACEY (test code = Non-reactive for HIV-1 STACEY) antigen and HIV-1/HIV-2 antibodies. ?No laboratory evidence of HIV infection. ?Repeat in 2-4 weeks if acute HIV infection is suspected. [facility] 1/2 AG-AB WITH [id number] 18:52:46 Test Item Value Reference Range Interpretation Comments HIV Negative Negative Semi-quantitative (test code = 09979-6) STACEY (test code = Non-reactive for HIV-1 STACEY) antigen and HIV-1/HIV-2 antibodies. ?No laboratory evidence of HIV infection. ?Repeat in 2-4 weeks if acute HIV infection is suspected. [facility] B Surface [id number] 17:07:01 Test Item Value Reference Range Interpretation Comments HBsAg Semi-Quantitative (test code = Negative Negative 5195-3) [facility] B Surface [id number] 17:07:01 Test Item Value Reference Range Interpretation Comments HBsAg Semi-Quantitative (test code = Negative Negative 5195-3) [facility] [place] [id number] 16:32:23 Test Item Value Reference Range Interpretation Comments ABO & RH (test code O POSITIVE Performe d at [facility] = 20) Laboratory Serv [facility] Blood Bank3 [facility] [address]Bmms Free: [phone] A No. [id number] IAT (test code = Negative Performed a t [facility] 1185) Laboratory Serv ices - GAL Blood Bank3 01 [facility] [address]Qhlu Free: [phone] A No. [id number] [facility] [place] [id number] 16:32:23 Test Item Value Reference Range Interpretation Comments ABO & RH (test code O POSITIVE Performe d at [facility] = 20) Laboratory [facility] Blood Bank3 [address] [place] [address] 7[address]Vsnc Free: [phone] A No. [id number] IAT (test code = Negative Performed a t [facility] 1185) Laboratory [facility] Blood [facility] [address] [place] [address]Pwkp Free: [phone] A No. [id number] [facility] [place] with [id number] 15:54:59 Test Item Value Reference Range Interpretation Comments WBC (test code = See_Comment [Automated 4490-2) message] The sy stem which generated this result transmitted reference range : 4.30 - 11.10 10*3/?L. The reference range was not used to interpret this result as normal/abnormal . RBC (test code = See_Comment L [Automated 359-8) message] The sy stem which generated this result transmitted reference range : 3.93 - 5.25 10*6/?L. The reference range was not used to interpret this result as normal/abnormal . HGB (test code = 11.3 g/dL 11.6-15.0 L 718-7) HCT (test code = 34.6 % 35.7-45.2 L 4544-3) MCV (test code = 92.5 fL 80.6-95.5 787-2) MCH (test code = 30.2 pg 25.9-32.8 785-6) MCHC (test code = 32.7 g/dL 31.6-35.1 786-4) RDW-SD (test code = 45.3 fL 39.0-49.9 86552-0) RDW-CV (test code = 13.4 % 12.0-15.5 788-0) PLT (test code = See_Comment [Automated 777-3) message] The sy stem which generated this result transmitted reference range : 166 - 358 10*3/ ?L. The reference r nestor was not used to interpret this result as normal/abnormal . MPV (test code = 11.0 fL 9.5-12.9 58362-4) NRBC/100 WBC (test See_Comment [Automat ed code = [id number]) message] The system which generated this result transmitted reference range : 0.0 - 10.0 /100 WBCs. The refer ence range was not u sed to interpret th is result as normal/abnormal . NRBC x10^3 (test code See_Comment [Auto mated = [id number]) message] The s ystem which generated this result transmitted reference range : 10*3/?L. The reference range was not used to interpret this result as normal/abnormal . GRAN MAT (NEUT) % 89.1 % (test code = 770-8) IMM GRAN % (test code 0.60 % = 1124123062) LYMPH % (test code = 5.6 % 736-9) MONO % (test code = 4.3 % 5905-5) EOS % (test code = 0.2 % 713-8) BASO % (test code = 0.2 % 706-2) GRAN MAT x10^3(ANC) 8.24 10*3/uL 1.88-7.09 H (test code = 5387755192) IMM GRAN x10^3 (test 0.06 10*3/uL 0.00-0.06 code = 0981638283) LYMPH x10^3 (test code 0.52 10*3/uL 1.32-3.29 L = 731-0) MONO x10^3 (test code 0.40 10*3/uL 0.33-0.92 = 742-7) EOS x10^3 (test code = 0.03-0.39 L 711-2) BASO x10^3 (test code 0.01-0.07 = 704-7) Lab Interpretation Abnormal (test code = 01052-3) [facility] with [id number] 15:54:59 Test Item Value Reference Range Interpretation Comments WBC (test code = See_Comment [Automated 6690-2) message] The sy stem which generated this result transmitted reference range : 4.30 - 11.10 10*3/?L. The reference range was not used to interpret this result as normal/abnormal . RBC (test code = See_Comment L [Automated 789-8) message] The sy stem which generated this result transmitted reference range : 3.93 - 5.25 10*6/?L. The reference range was not used to interpret this result as normal/abnormal . HGB (test code = 11.3 g/dL 11.6-15.0 L 718-7) HCT (test code = 34.6 % 35.7-45.2 L 4544-3) MCV (test code = 92.5 fL 80.6-95.5 787-2) MCH (test code = 30.2 pg 25.9-32.8 785-6) MCHC (test code = 32.7 g/dL 31.6-35.1 786-4) RDW-SD (test code = 45.3 fL 39.0-49.9 99332-1) RDW-CV (test code = 13.4 % 12.0-15.5 788-0) PLT (test code = See_Comment [Automated 777-3) message] The sy stem which generated this result transmitted reference range : 166 - 358 10*3/ ?L. The reference r nestor was not used to interpret this result as normal/abnormal . MPV (test code = 11.0 fL 9.5-12.9 78788-1) NRBC/100 WBC (test See_Comment [Automat ed code = [id number]) message] The system which generated this result transmitted reference range : 0.0 - 10.0 /100 WBCs. The refer ence range was not u sed to interpret th is result as normal/abnormal . NRBC x10^3 (test code See_Comment [Auto mated = 7042504313) message] The s ystem which generated this result transmitted reference range : 10*3/?L. The reference range was not used to interpret this result as normal/abnormal . GRAN MAT (NEUT) % 89.1 % (test code = 770-8) IMM GRAN % (test code 0.60 % = 4517327733) LYMPH % (test code = 5.6 % 736-9) MONO % (test code = 4.3 % 5905-5) EOS % (test code = 0.2 % 713-8) BASO % (test code = 0.2 % 706-2) GRAN MAT x10^3(ANC) 8.24 10*3/uL 1.88-7.09 H (test code = 0240227721) IMM GRAN x10^3 (test 0.06 10*3/uL 0.00-0.06 code = 8233435620) LYMPH x10^3 (test code 0.52 10*3/uL 1.32-3.29 L = 731-0) MONO x10^3 (test code 0.40 10*3/uL 0.33-0.92 = 742-7) EOS x10^3 (test code = 0.03-0.39 L 711-2) BASO x10^3 (test code 0.01-0.07 = 704-7) Lab Interpretation Abnormal (test code = 10152-5) [facility] URINALYSIS W SPECIFIC [id number] 16:33:00 Test Item Value Reference Range Interpretation Comments POCT U SP GRAV (test code = * 1.005-1.025 3255) POCT PH U (test code = 3254) * 5-8 POCT U LEUK EST (test code = * Negative - Negative 3263) POCT U NIT (test code = 3262) * Negative - Negative POCT U PROT (test code = 3259) trace Negative - Negative POCT U GLU (test code = 3256) negative Negative - Negative POCT U KETONE (test code = 3258) * Negative - Negative POCT U UROBILI (test code = * 0.2-1 3260) POCT U BILI (test code = 3261) * Negative - Negative POCT U BLD (test code = 3257) * Negative - Negative POCT U COLOR (test code = 3266) * POCT U APPEAR (test code = 3267) * [facility] URINALYSIS W SPECIFIC [id number] 14:05:00 Test Item Value Reference Range Interpretation Comments POCT U SP GRAV (test code = . 1.005-1.025 3255) POCT PH U (test code = 3254) 7 mg/dl 5-8 POCT U LEUK EST (test code = trace Negative - Negative 3263) POCT U NIT (test code = 3262) negative Negative - Negative POCT U PROT (test code = 3259) trace Negative - Negative POCT U GLU (test code = 3256) negative Negative - Negative POCT U KETONE (test code = 3258) negative Negative - Negative POCT U UROBILI (test code = . 0.2-1 3260) POCT U BILI (test code = 3261) . Negative - Negative POCT U BLD (test code = 3257) Negative - Negative POCT U COLOR (test code = 3266) . POCT U APPEAR (test code = 3267) . [facility] URINALYSIS W SPECIFIC [id number] 14:48:00 Test Item Value Reference Range Interpretation Comments POCT U SP GRAV (test code = * 1.005-1.025 3255) POCT PH U (test code = 3254) * 5-8 POCT U LEUK EST (test code = * Negative - Negative 3263) POCT U NIT (test code = 3262) * Negative - Negative POCT U PROT (test code = 3259) trace Negative - Negative POCT U GLU (test code = 3256) negative Negative - Negative POCT U KETONE (test code = 3258) * Negative - Negative POCT U UROBILI (test code = * 0.2-1 3260) POCT U BILI (test code = 3261) * Negative - Negative POCT U BLD (test code = 3257) * Negative - Negative POCT U COLOR (test code = 3266) POCT U APPEAR (test code = 3267) [facility] URINALYSIS W SPECIFIC [id number] 14:48:00 Test Item Value Reference Range Interpretation Comments POCT U SP GRAV (test code = * 1.005-1.025 3255) POCT PH U (test code = 3254) * 5-8 POCT U LEUK EST (test code = * Negative - Negative 3263) POCT U NIT (test code = 3262) * Negative - Negative POCT U PROT (test code = 3259) trace Negative - Negative POCT U GLU (test code = 3256) negative Negative - Negative POCT U KETONE (test code = 3258) * Negative - Negative POCT U UROBILI (test code = * 0.2-1 3260) POCT U BILI (test code = 3261) * Negative - Negative POCT U BLD (test code = 3257) * Negative - Negative POCT U COLOR (test code = 3266) POCT U APPEAR (test code = 3267) [facility] URINALYSIS W SPECIFIC [id number] 14:48:00 Test Item Value Reference Range Interpretation Comments POCT U SP GRAV (test code = * 1.005-1.025 3255) POCT PH U (test code = 3254) * 5-8 POCT U LEUK EST (test code = * Negative - Negative 3263) POCT U NIT (test code = 3262) * Negative - Negative POCT U PROT (test code = 3259) trace Negative - Negative POCT U GLU (test code = 3256) negative Negative - Negative POCT U KETONE (test code = 3258) * Negative - Negative POCT U UROBILI (test code = * 0.2-1 3260) POCT U BILI (test code = 3261) * Negative - Negative POCT U BLD (test code = 3257) * Negative - Negative POCT U COLOR (test code = 3266) POCT U APPEAR (test code = 3267) [facility] URINALYSIS W SPECIFIC [id number] 13:31:00 Test Item Value Reference Range Interpretation Comments POCT U SP GRAV (test code = . 1.005-1.025 3255) POCT PH U (test code = 3254) 8 mg/dl 5-8 POCT U LEUK EST (test code = 2++ Negative - Negative 3263) POCT U NIT (test code = 3262) negative Negative - Negative POCT U PROT (test code = 3259) 1+ Negative - Negative POCT U GLU (test code = 3256) negative Negative - Negative POCT U KETONE (test code = 3258) negative Negative - Negative POCT U UROBILI (test code = . 0.2-1 3260) POCT U BILI (test code = 3261) . Negative - Negative POCT U BLD (test code = 3257) negative Negative - Negative POCT U COLOR (test code = 3266) yellow POCT U APPEAR (test code = 3267) clear [facility] URINALYSIS W SPECIFIC [id number] 21:12:00 Test Item Value Reference Range Interpretation Comments POCT U SP GRAV (test code = 3255) . 1.005-1.025 POCT PH U (test code = 3254) . 5-8 POCT U LEUK EST (test code = 3263) . Negative - Negative POCT U NIT (test code = 3262) . Negative - Negative POCT U PROT (test code = 3259) Trace Negative - Negative POCT U GLU (test code = 3256) Neg Negative - Negative POCT U KETONE (test code = 3258) . Negative - Negative POCT U UROBILI (test code = 3260) . 0.2-1 POCT U BILI (test code = 3261) . Negative - Negative POCT U BLD (test code = 3257) . Negative - Negative POCT U COLOR (test code = 3266) . POCT U APPEAR (test code = 3267) . [facility] URINALYSIS W SPECIFIC [id number] 13:28:00 Test Item Value Reference Range Interpretation Comments POCT U SP GRAV (test code = . 1.005-1.025 3255) POCT PH U (test code = 3254) 8 mg/dl 5-8 POCT U LEUK EST (test code = 2+ Negative - Negative 3263) POCT U NIT (test code = 3262) negative Negative - Negative POCT U PROT (test code = 3259) 1+ Negative - Negative POCT U GLU (test code = 3256) negative Negative - Negative POCT U KETONE (test code = 3258) negative Negative - Negative POCT U UROBILI (test code = . 0.2-1 3260) POCT U BILI (test code = 3261) . Negative - Negative POCT U BLD (test code = 3257) negative Negative - Negative POCT U COLOR (test code = 3266) yellow POCT U APPEAR (test code = 3267) clear [facility] URINALYSIS W SPECIFIC [id number] 14:20:00 Test Item Value Reference Range Interpretation Comments POCT U SP GRAV (test code = . 1.005-1.025 3255) POCT PH U (test code = 3254) . 5-8 POCT U LEUK EST (test code = . Negative - Negative 3263) POCT U NIT (test code = 3262) . Negative - Negative POCT U PROT (test code = 3259) trace Negative - Negative POCT U GLU (test code = 3256) negative Negative - Negative POCT U KETONE (test code = 3258) . Negative - Negative POCT U UROBILI (test code = . 0.2-1 3260) POCT U BILI (test code = 3261) . Negative - Negative POCT U BLD (test code = 3257) . Negative - Negative POCT U COLOR (test code = 3266) dionte POCT U APPEAR (test code = 3267) clear [facility] URINALYSIS W SPECIFIC [id number] 14:20:00 Test Item Value Reference Range Interpretation Comments POCT U SP GRAV (test code = . 1.005-1.025 3255) POCT PH U (test code = 3254) . 5-8 POCT U LEUK EST (test code = . Negative - Negative 3263) POCT U NIT (test code = 3262) . Negative - Negative POCT U PROT (test code = 3259) trace Negative - Negative POCT U GLU (test code = 3256) negative Negative - Negative POCT U KETONE (test code = 3258) . Negative - Negative POCT U UROBILI (test code = . 0.2-1 3260) POCT U BILI (test code = 3261) . Negative - Negative POCT U BLD (test code = 3257) . Negative - Negative POCT U COLOR (test code = 3266) dionte POCT U APPEAR (test code = 3267) clear [facility] URINALYSIS W SPECIFIC [id number] 14:20:00 Test Item Value Reference Range Interpretation Comments POCT U SP GRAV (test code = . 1.005-1.025 3255) POCT PH U (test code = 3254) . 5-8 POCT U LEUK EST (test code = . Negative - Negative 3263) POCT U NIT (test code = 3262) . Negative - Negative POCT U PROT (test code = 3259) trace Negative - Negative POCT U GLU (test code = 3256) negative Negative - Negative POCT U KETONE (test code = 3258) . Negative - Negative POCT U UROBILI (test code = . 0.2-1 3260) POCT U BILI (test code = 3261) . Negative - Negative POCT U BLD (test code = 3257) . Negative - Negative POCT U COLOR (test code = 3266) dionte POCT U APPEAR (test code = 3267) clear [facility] URINALYSIS W SPECIFIC [id number] 14:20:00 Test Item Value Reference Range Interpretation Comments POCT U SP GRAV (test code = . 1.005-1.025 3255) POCT PH U (test code = 3254) . 5-8 POCT U LEUK EST (test code = . Negative - Negative 3) POCT U NIT (test code = 3262) . Negative - Negative POCT U PROT (test code = 3259) trace Negative - Negative POCT U GLU (test code = 3256) negative Negative - Negative POCT U KETONE (test code = 3258) . Negative - Negative POCT U UROBILI (test code = . 0.2-1 3260) POCT U BILI (test code = 3261) . Negative - Negative POCT U BLD (test code = 3257) . Negative - Negative POCT U COLOR (test code = 3266) dionte POCT U APPEAR (test code = 3267) clear [facility] URINALYSIS W SPECIFIC [id number] 14:20:00 Test Item Value Reference Range Interpretation Comments POCT U SP GRAV (test code = . 1.005-1.025 3255) POCT PH U (test code = 3254) . 5-8 POCT U LEUK EST (test code = . Negative - Negative 3263) POCT U NIT (test code = 3262) . Negative - Negative POCT U PROT (test code = 3259) trace Negative - Negative POCT U GLU (test code = 3256) negative Negative - Negative POCT U KETONE (test code = 3258) . Negative - Negative POCT U UROBILI (test code = . 0.2-1 3260) POCT U BILI (test code = 3261) . Negative - Negative POCT U BLD (test code = 3257) . Negative - Negative POCT U COLOR (test code = 3266) dionte POCT U APPEAR (test code = 3267) clear [facility] URINALYSIS W SPECIFIC [id number] 14:20:00 Test Item Value Reference Range Interpretation Comments POCT U SP GRAV (test code = . 1.005-1.025 3255) POCT PH U (test code = 3254) . 5-8 POCT U LEUK EST (test code = . Negative - Negative 3263) POCT U NIT (test code = 3262) . Negative - Negative POCT U PROT (test code = 3259) trace Negative - Negative POCT U GLU (test code = 3256) negative Negative - Negative POCT U KETONE (test code = 3258) . Negative - Negative POCT U UROBILI (test code = . 0.2-1 3260) POCT U BILI (test code = 3261) . Negative - Negative POCT U BLD (test code = 3257) . Negative - Negative POCT U COLOR (test code = 3266) dionte POCT U APPEAR (test code = 3267) clear [facility] URINALYSIS W SPECIFIC [id number] 18:30:00 Test Item Value Reference Range Interpretation Comments POCT U SP GRAV (test code = na 1.005-1.025 3255) POCT PH U (test code = 3254) 8 mg/dl 5-8 POCT U LEUK EST (test code = 1+ Negative - Negative 3263) POCT U NIT (test code = 3262) neg Negative - Negative POCT U PROT (test code = 3259) neg Negative - Negative POCT U GLU (test code = 3256) neg Negative - Negative POCT U KETONE (test code = 3258) small Negative - Negative POCT U UROBILI (test code = na 0.2-1 3260) POCT U BILI (test code = 3261) na Negative - Negative POCT U BLD (test code = 3257) trace Negative - Negative POCT U COLOR (test code = 3266) POCT U APPEAR (test code = 3267) Lab Interpretation (test code = Abnormal 27869-6) [facility] URINALYSIS W SPECIFIC [id number] 19:32:00 Test Item Value Reference Range Interpretation Comments POCT U SP GRAV (test code = 3255) . 1.005-1.025 POCT PH U (test code = 3254) . 5-8 POCT U LEUK EST (test code = 3263) . Negative - Negative POCT U NIT (test code = 3262) . Negative - Negative POCT U PROT (test code = 3259) Trace Negative - Negative POCT U GLU (test code = 3256) Neg Negative - Negative POCT U KETONE (test code = 3258) . Negative - Negative POCT U UROBILI (test code = 3260) . 0.2-1 POCT U BILI (test code = 3261) . Negative - Negative POCT U BLD (test code = 3257) . Negative - Negative POCT U COLOR (test code = 3266) . POCT U APPEAR (test code = 3267) . [facility] URINALYSIS W SPECIFIC [id number] 15:58:00 Test Item Value Reference Range Interpretation Comments POCT U SP GRAV (test code = [...] POCT U APPEAR (test code = 3267) [facility] [place]
[2022-05-07 04:25] LABS: Urine Blood Negative (Negative); Urine Glucose Negative (Negative); Urine Protein 3+ (Negative); Urine Specific Gravity >=1.030 (1.005-1.030)
[2022-05-07 04:52] LABS: Urine Bacteria >50 /HPF (<20)
[2022-05-07 05:06] LABS: SARS-COV-2 RT PCR NEGATIVE (NEGATIVE)
[2022-05-07] MEDS ORDERED: NA CHLORIDE 0.9% 1,000 ML ONE (05:17)
[2022-05-07 05:19] LABS: Urine Specific Gravity/Preg >1.030 (1.005-1.030)
[2022-05-07] MEDS ORDERED: CEFTRIAXONE 1000 MG/VIAL ONE (05:36)
[2022-05-07 05:44] LABS: Absolute Lymphocytes (CBC) 0.9 K/uL (0.7-4.9); Hematocrit 43.7 % (36.0-45.0); Lymphocytes % 13.3 % (15.3-44.8); MCV 90.1 fL (80-100); MPV 9.3 fL (7.6-11.3); RBC Red Blood Cell Count 4.85 M/uL (3.86-4.86)
[2022-05-07 05:59] LABS: Potassium 3.7 mmol/L (3.5-5.1)
--- NOTE | 2022-05-07 06:22 | EDPHYS ---
Physician Documentation [facility] Name: Aida Rodriguez Age: 27 yrs Sex: Female : 1995 Arrival Date: 05/07/2022 Time: 03:58 Bed 11 Private MD: ED Physician Noman Crowley HPI: 05/07 04:27 This 27 yrs old Female presents to ER via Ambulatory with complaints of Fever, rn Congestion, Dizziness. 04:27 The patient reports fever, not measured (subjective). Onset: The symptoms/episode rn began/occurred 2 day(s) ago. Modifying factors: there are no obvious modifying factors. Associated signs and symptoms: Pertinent positives: chills, cough, earache, Pertinent negatives: abdominal pain, altered mental status, backache, diarrhea, headache, skin rash, shortness of breath, swelling, vomiting. Severity of symptoms: At their worst the symptoms were mild in the emergency department the symptoms are unchanged. The patient has experienced similar episodes in the past. The patient has not recently seen a physician. 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 - Social history:: Smoking status: Patient denies any tobacco usage or history of. - Family history:: not pertinent. - Hospitalizations: : No recent hospitalization is reported. 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 Exam: 04:28 Constitutional: This is a well developed, well nourished patient who is awake, alert, rn and in no acute distress. Head/Face: Normocephalic, atraumatic. Eyes: Periorbital areas with no swelling, redness, or edema. ENT: no stridor, MMM Neck: Trachea midline, no masses palpated, and no cervical lymphadenopathy. Supple, full range of motion without nuchal rigidity, or vertebral point tenderness. No Meningismus. Cardiovascular: Tachycardic, regular Respiratory: No increased work of breathing, no retractions or nasal flaring. Abdomen/GI: Soft, non-tender Skin: Warm, dry MS/ Extremity: Pulses equal, no cyanosis. Neuro: Awake and alert, GCS 15 Vital Signs: 04:05 Weight 83.46 kg; Height 5 ft. 4 in. (162.56 cm); vc1 04:06 BP 99 / 64; Pulse 113; Resp 18; Temp 100; Pulse Ox 99% ; Pain 0/10; vc1 06:00 BP 98 / 58; Pulse 90; Resp 17; Pulse Ox 98% ; vc1 04:05 Body Mass Index 31.58 (83.46 kg, 162.56 cm) vc1 MDM: 03:59 Patient medically screened. rn 05:33 Differential diagnosis: viral Infection, bacterial infection, URI, UTI. Data reviewed: rn vital signs, nurses notes, lab test result(s), and as a result, I will discharge patient. Counseling: I had a detailed discussion with the patient and/or guardian regarding: the historical points, exam findings, and any diagnostic results supporting the discharge/admit diagnosis, lab results, the need for outpatient follow up, to return to the emergency department if symptoms worsen or persist or if there are any questions or concerns that arise at home. 05:33 Response to treatment: the patient's symptoms have mildly improved after treatment, and rn as a result, I will discharge patient. Special discussion: I discussed with the patient/guardian in detail that at this point there is no indication for admission to the hospital. It is understood, however, that if the symptoms persist or worsen the patient needs to return immediately for re-evaluation. 05/07 04:07 Order name: COVID-19/FLU A+B; Complete Time: 05:26 rn 05/07 04:07 Order name: Strep; Complete Time: 04:49 rn 05/07 04:07 Order name: Urine Microscopic Only; Complete Time: 04:54 rn 05/07 04:25 Order name: Urine Dipstick-Ancillary; Complete Time: 04:49 [facility] 05/07 04:27 Order name: Urine Culture [facility] 05/07 04:27 Order name: Urine --Ancillary (enter results); Complete Time: 05:26 [facility] 05/07 04:07 Order name: Urine Dipstick-Ancillary (obtain specimen); Complete Time: 04:26 05/07 04:27 Order name: Urine Test (obtain specimen); Complete Time: 04:27 [facility] 05/07 04:42 Order name: Throat Culture [facility] 05/07 04:49 Order name: CBC with Diff; Complete Time: 06:21 rn 05/07 04:49 Order name: Basic Metabolic Panel; Complete Time: 06:21 rn 05/07 04:49 Order name: IV Start; Complete Time: 05:31 rn Administered Medications: 05:31 Drug: NS 0.9% 1000 ml Route: IV; Rate: 1000 ml; Site: right antecubital; vc1 05:36 Drug: Rocephin (cefTRIAXone) 1 grams Route: IV; Rate: calculated rate; Site: right vc1 antecubital; Disposition Summary: 05/07/22 06:22 Discharge Ordered Location: Home rn Problem: new rn Symptoms: have improved rn Condition: Stable rn Diagnosis - UTI/ Urinary tract infection, site not specified rn Followup: rn - With: Private Physician - When: As needed - Reason: Recheck today's complaints, Re-evaluation by your physician Discharge Instructions: - Discharge Summary Sheet rn - Fever, Adult rn - Urinary Tract Infection, Adult rn Forms: - Medication Reconciliation Form rn - Thank You Letter rn - Antibiotic rn navigator - Prescription Opioid Use rn Prescriptions: - cefpodoxime 100 mg Oral Tablet - take 2 tablets by ORAL route every 12 hours for 10 days take with food; 40 rn tablet; Refills: 0, Product Selection Permitted Signatures: Dispatcher [employer] EDNoman Humphreys MD MD rn [place], MyKena [id number] Maryann Phillips RN RN vc1
--- NOTE | 2022-05-07 06:22 | ER ---
Nurse's Notes [facility] Name: Aida Rodriguez Age: 27 yrs Sex: Female : 1995 Arrival Date: 05/07/2022 Time: 03:58 Bed 11 Private MD: Diagnosis: UTI/ Urinary tract infection, site not specified Presentation: 05/07 04:01 Chief complaint: Patient states: "I've had an on and off fever for the last 2 days. I vc1 took an Ibuprofen around 3 and now I am rally dizzy.". Ebola Screen: No symptoms or risks identified at this time. Risk Assessment: Do you want to hurt yourself or someone else? Patient reports no desire to harm self or others. Onset of symptoms was May 05, 2022. 04:01 Method Of Arrival: Ambulatory vc1 04:01 Acuity: REZA 3 vc1 04:06 Coronavirus screen: Vaccine status: Patient reports being unvaccinated. Initial Sepsis vc1 Screen: Does the patient meet any 2 criteria? No. Patient's initial sepsis screen is negative. Does the patient have a suspected source of infection? No. Patient's initial sepsis screen is negative. Triage Assessment: 04:03 General: Appears in no apparent distress. uncomfortable, Behavior is calm, cooperative, vc1 appropriate for age. Pain: Denies pain. EENT: Reports nasal congestion. Neuro: Level of Consciousness is awake, alert, obeys commands, Oriented to person, place, time, situation, Appropriate for age Reports dizziness. Cardiovascular: No deficits noted. Respiratory: Airway is patent Respiratory effort is even, unlabored, Respiratory pattern is regular, symmetrical, Breath sounds are clear. GI: No deficits noted. : No deficits noted. No signs and/or symptoms were reported regarding the genitourinary system. Derm: No deficits noted. No signs and/or symptoms reported regarding the dermatologic system. Musculoskeletal: No deficits noted. No signs and/or symptoms reported regarding the musculoskeletal system. 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 - Social history:: Smoking status: Patient denies any tobacco usage or history of. - Family history:: not pertinent. - Hospitalizations: : No recent hospitalization is reported. Screenin:03 Abuse screen: Denies threats or abuse. Nutritional screening: No deficits noted. vc1 Tuberculosis screening: No symptoms or risk factors identified. Fall Risk No fall in past 12 months (0 pts). Assessment: 05:00 Reassessment: Patient and/or family updated on plan of care and expected duration. Pain vc1 level reassessed. Patient is alert, oriented x 3, equal unlabored respirations, skin warm/dry/pink. Patient states symptoms have improved. Cardiovascular: No deficits noted. Respiratory: Airway is patent Respiratory effort is even, unlabored, Respiratory pattern is regular, symmetrical. Vital Signs: 04:05 Weight 83.46 kg; Height 5 ft. 4 in. (162.56 cm); vc1 04:06 BP 99 / 64; Pulse 113; Resp 18; Temp 100; Pulse Ox 99% ; Pain 0/10; vc1 06:00 BP 98 / 58; Pulse 90; Resp 17; Pulse Ox 98% ; vc1 04:05 Body Mass Index 31.58 (83.46 kg, 162.56 cm) vc1 ED Course: 03:58 Patient arrived in ED. [id number] 03:59 Noman Crowley MD is Attending Physician. rn 04:03 Triage completed. vc1 04:04 Arm band placed on left wrist. vc1 05:00 Patient has correct armband on for positive identification. Bed in low position. Call vc1 light in reach. 05:25 Inserted saline lock: 20 gauge in right antecubital area, using aseptic technique. vc1 Blood collected. 06:27 No provider procedures requiring assistance completed. IV discontinued, intact, vc1 bleeding controlled, No redness/swelling at site. Pressure dressing applied. Administered Medications: 05:31 Drug: NS 0.9% 1000 ml Route: IV; Rate: 1000 ml; Site: right antecubital; vc1 05:36 Drug: Rocephin (cefTRIAXone) 1 grams Route: IV; Rate: calculated rate; Site: right vc1 antecubital; Medication: 04:05 VIS not applicable for this client. vc1 Outcome: 06:22 Discharge ordered by . rn 06:27 Discharged to home ambulatory. vc1 06:27 Condition: good 06:27 Discharge instructions given to patient, Instructed on discharge instructions, follow up and referral plans. medication usage, Demonstrated understanding of instructions, follow-up care, medications, Prescriptions given X 1. 06:29 Patient left the ED. vc1 Signatures: Noman Crowley MD MD rn Jeffries, Jennifer [id number] Maryann Phillips RN RN vc1
[2022-05-07 06:51] VITALS: TEMP 100
[2022-05-07 06:53] VITALS: BP 98/58; O2SAT 98
== END 2022-05-07 06:29 | disposition home or self-care (01) ==
LOC: ER 03:54
DX: N39.0 Urinary tract infection, site not specified (principal); Z20.822 Contact with and (suspected) exposure to COVID-19
CPT/HCPCS: 87070; 87088; 85025; 87086; 80048; 36415; 81025; 87081; 0240U; J7030; 81003; 81015; 96374; 99284